=== PATIENT | female | born 1970 | race Caucasian/White ===

== ENCOUNTER → 2019-03-09 14:31 | Outpatient (BNVA) | payer MEDICAID, SELFPAY | PROVIDERS: Family Provider Nurse Practitioner Family; PCP Nurse Practitioner; Visit Provider Obstetrics & Gynecology | DX: Z12.4 Encounter for screening for malignant neoplasm of cervix (principal); N93.9 Abnormal uterine and vaginal bleeding, unspecified | CPT/HCPCS: 81025; 83001; 84146; 84443; 85025; 88175 ==

== ENCOUNTER → 2019-03-11 13:45 | Outpatient (BNVA) | payer MEDICAID, SELFPAY | PROVIDERS: Family Provider Nurse Practitioner Family; PCP Nurse Practitioner; Referring Provider Obstetrics & Gynecology; Visit Provider Obstetrics & Gynecology | DX: N93.9 Abnormal uterine and vaginal bleeding, unspecified (principal); D25.9 Leiomyoma of uterus, unspecified | CPT/HCPCS: 76830 ==

== ENCOUNTER 2019-03-20 12:20 | Observation (INO) | payer MEDICAID, SELFPAY ==
[2019-03-20] VITALS (7 sets, daily range): BP systolic 112–205; BP diastolic 72–113; PULSE 67–83; RESP 15–18; TEMP 36.5–37; O2SAT 95–100; BMI 47.9
--- NOTE | 2019-03-20 12:36 | ED_ITS ---
Entered by Sonia Johns, acting as scribe for Suyapa Alexis HPI - Chest Pain General: Chief Complaint: Chest Pain Stated Complaint: chest pain sent over by [facility] for possible mi Time Seen by Provider: 03/20/19 12:30 Source: patient Mode of arrival: ambulatory Limitations: no limitations History of Present Illness: HPI narrative: 49 yo Female presents to ED with co mplaint of chest pain. Pt states that this pain started yesterday. Pt describes the pain as a squeezing. Pt states that she has constant pain that gets better and then when she exerts herself, her pain gets worse. Pt states that she has been having weakness. Pt states that she was told about 20 years ago that she had a faulty valve. Pt states that she had nausea, shortness of breath, and diaphoresis. MD complaint: chest pain Onset (ago): day(s) Timing of current episode: constant and still present Prior episodes: No Onset: during exertion Pain location: substernal Quality: tightness Relieving factors: nothing Exacerbating factors: exertion Associated symptoms: Reports diaphoresis, dyspnea, leg edema and nausea; Deny palpitations or syncope Review of Systems General: Reports: other (negative unless marked) Const: Reports: diaphoresis Eyes: Denies: change in vision or blurry vision ENMT: Denies: throat pain, painful swallowing, hoarseness, ear pain, ear discharge, Change in hearing or nasal discharge Card: Reports: chest pain, swelling of feet/ankles and shortness of breath on exertion; Denies: palpitations, irregular heart rhythm, syncope, pre-syncope or shortness of breath when lying down Resp: Reports: shortness of breath GI: Reports: nausea : Denies: flank pain, painful urination, urinary frequency, urinary urgency, decreased urine ouput, urinary incontinence or blood in urine Musc: Denies: neck pain, back pain, extremity pain, extremity swelling, joint pain, joint swelling, joint warmth or joint stiffness Skin/Breast: Denies: rash, skin tenderness or yellow skin Neuro: Denies: headache, numbness in extremities, weakness in extremities, changes in sensation, lack of coordination, difficulty walking, dizziness, vertigo or confusion Endo: Denies: excessive thirst, tired all the time, cold intolerance, excessive sweating, flushing or hot flashes Krish/Lymph: Denies: easy bruising, easy bleeding, petechiae or enlarged lymph nodes All/Imm: Denies: hives, throat swelling, tongue swelling, facial swelling or acute wheezing PFSH ED PFSH: Statuses (acute, chronic, etc) shown below reflect problem list status as previously entered and may not be historically accurate Family History Grandfather Diabetes paternal Stroke maternal and paternal Hypertension paternal Mother Diabetes from pancreatitis Grandfather No problems noted. Grandmother Heart disease paternal Hypertension Father Heart disease Hypertension Heart attack Sister Hypertension Social History Smoking and tobacco status: never smoked Alcohol intake: never Physical Exam Const: COMMON NORMALS: no apparent distress, oriented x3, no limitations, healthy appearing and well nourished EXAM LIMITATIONS: no altered mental status GENERAL APPEARANCE: cooperative, well kempt and well developed ORIENTATION/CONSCIOUSNESS: Yes awake HENMT: COMMON NORMALS: normocephalic, head/scalp atraumatic, hearing grossly normal bilaterally, external ears normal, EAC's normal, external nose normal and moist oral mucous membranes HEAD & SCALP: normal to inspection, normocephalic and atraumatic FACE & SINUS: normal facial exam and face symmetric NOSE: external nose normal and nares normal EXTERNAL EAR: Yes external ears normal EXTERNAL AUDITORY CANAL: EAC's normal MOUTH: oral and palatal mucosa normal and tongue normal Eye: COMMON NORMALS: PERRL, EOMs intact bilaterally, conjunctivae normal and no scleral icterus GENERAL EYE: normal appearance of both eyes and normal light reflex CONJUNCTIVA: Yes conjunctivae normal SCLERA: sclerae normal CORNEA: Yes corneas normal PUPIL: Yes PERRL DIRECT OPHTHALMOSCOPY: Yes normal light reflex Neck/C-Spine: COMMON NORMALS: full ROM, no lymphadenopathy, supple, no meningeal signs and no JVD GENERAL: Yes normal visual inspection and Yes trachea midline CERVICAL SPINE: Yes cervical ROM normal Chest: COMMONS NORMALS: inspection of chest normal and palpation of chest normal Resp: COMMON NORMALS: normal respiratory effort, no retractions, no use of accessory muscles and clear to auscultation bilaterally EFFORT & INSPECTION: Yes able to speak in complete sentences AUSCULTATION: clear to auscultation bilaterally Cardio: COMMON NORMALS: no JVD, regular rate, regular rhythm, S1 normal heart sound, S2 normal heart sound, no gallops, no clicks, no murmurs and no rub JUGULAR VENOUS DISTENTION: no JVD RATE: regular rate RHYTHM: regular rhythm HEART SOUNDS: S1 normal and S2 normal GI: COMMON NORMALS: soft to palpation, non-tender, no hepatosplenomegaly and no masses INSPECTION: Yes normal to inspection PALPATION: Yes soft and Yes no hepatosplenomegaly : COMMON NORMALS: Yes no CVA tenderness BLADDER/KIDNEY EXAM: Yes no CVA tenderness Back/Pelvis: COMMON NORMALS: no CVA tenderness, thoracic and lumbar spine normal to inspection, no thoracic nor lumbar tenderness and thoraco-lumbar ROM normal Extremity: COMMON NORMALS: normal to inspection, full ROM, normal capillary refill, no joint enlargement, no clubbing, cyanosis or edema and no calf tenderness Neuro: COMMON NORMALS: oriented x3, CN's II-XII intact bilaterally, moves all extremities, no focal motor deficits and no sensory deficits noted MENINGEAL SIGNS: Yes no meningeal signs Psych: COMMON NORMALS: mental status grossly normal, thought process normal, cooperative, affect normal, speech normal and activity/motor behavior normal APPEARANCE: Yes well kempt SPEECH: Yes normal speech THOUGHT PROCESS: normal thought process Skin: COMMON NORMALS: no rashes or lesions noted, skin turgor normal, no jaundice, no petechiae and no mottling GENERAL SKIN EXAM: no rashes or lesions noted and turgor normal Course Vital Signs: Vital signs: Vital Signs Temperature 97.7 F 03/20/19 12:25 Pulse Rate 71 03/20/19 15:06 Respiratory Rate 17 03/20/19 15:06 Blood Pressure 152/92 03/20/19 15:06 Pulse Oximetry 96 03/20/19 15:06 MDM - Chest Pain 2 MDM Narrative: Medical decision making narrative: Viviana is a very nice 49-year-old female who comes in with a story very concerning for progressive angina. Her first troponin is negative and her EKG is normal. She got pain relief with nitroglycerin. Secondary to her heart score being a 5 I believe would be in her best interest to have a rule out in the hospital and she is willing to stay to get a stress test. The case was reviewed with Dr. Carvalho and he is in agreement. Lab Data: Labs: Lab Results 03/20/19 03/20/19 03/20/19 Range/Units 12:45 12:45 12:45 WBC 10.9 H (4.0-10.0) 10^3/ uL RBC 4.93 (4.1-5.3) 10^6/u L Hgb 13.3 (11.5-15.3) g/dL Hct 41.7 (37.0-47.0) % MCV 84.6 (81-99) fL MCH 27.0 L (28.0-34.0) pg MCHC 31.9 (30.0-36.0) g/dL RDW 13.8 (12.1-15.1) % Plt Count 363 (130-400) 10^3/c mm MPV 10.8 H (7.4-10.4) fL Neut % (Auto) 63.6 % Lymph % (Auto) 29.0 % Pepin % (Auto) 4.9 % Eos % (Auto) 2.0 % Baso % (Auto) 0.3 % Neut # (Auto) 6.9 (1.8-7.7) 10^3/u L Lymph # (Auto) 3.2 (0.8-4.8) 10^3/u L Pepin # (Auto) 0.5 (0.2-0.9) 10^3/u L Eos # (Auto) 0.2 (0.0-0.8) 10^3/u L Baso # (Auto) 0.0 (0.0-0.1) 10^3/u L Nucleated RBC % (a uto) 0 % Nucleated RBCs # 0.0 /100WBC PT 13.10 (10.5-13.3) SECO NDS INR 0.96 (0.8-1.2) D-Dimer (0-0.59) ug/mIFE U Sodium 139 (136-145) mmol/L Potassium 4.0 (3.5-5.1) mmol/L Chloride 101 (98-107) mmol/L Carbon Dioxide 27 (22-29) mmol/L Anion Gap 15.0 (5-19) BUN 13 (6-20) mg/dL Creatinine 0.8 (0.5-0.9) mg/dL GFR Calculation 75.9 L (90-130) mL/min Glucose 123 H (65-115) mg/dL Estimat Average Gl ucose Hemoglobin A1c (4.0-6.0) % Calcium 9.4 (8.5-10.5) mg/dL Total Bilirubin 0.4 (0.15-1.2) mg/dL AST 17 (0-32) U/L ALT 19 (0-33) U/L Alkaline Phosphata se 89 (35-105) IU/L Troponin T Baselin e (0-10) ng/mL NT-Pro-B Natriuret Pep (0-125) pg/mL Total Protein 8.0 (6.6-8.7) g/dL Albumin 4.2 (3.5-5.2) g/dL Globulin 3.8 (1.3-4.6) g/dL Lipase 18 (13-60) U/L 03/20/19 03/20/19 03/20/19 Range/Units 12:45 12:45 12:45 WBC (4.0-10.0) 10^3/ uL RBC (4.1-5.3) 10^6/u L Hgb (11.5-15.3) g/dL Hct (37.0-47.0) % MCV (81-99) fL MCH (28.0-34.0) pg MCHC (30.0-36.0) g/dL RDW (12.1-15.1) % Plt Count (130-400) 10^3/c mm MPV (7.4-10.4) fL Neut % (Auto) % Lymph % (Auto) % Pepin % (Auto) % Eos % (Auto) % Baso % (Auto) % Neut # (Auto) (1.8-7.7) 10^3/u L Lymph # (Auto) (0.8-4.8) 10^3/u L Pepin # (Auto) (0.2-0.9) 10^3/u L Eos # (Auto) (0.0-0.8) 10^3/u L Baso # (Auto) (0.0-0.1) 10^3/u L Nucleated RBC % (a uto) % Nucleated RBCs # /100WBC PT (10.5-13.3) SECO NDS INR (0.8-1.2) D-Dimer (0-0.59) ug/mIFE U Sodium (136-145) mmol/L Potassium (3.5-5.1) mmol/L Chloride (98-107) mmol/L Carbon Dioxide (22-29) mmol/L Anion Gap (5-19) BUN (6-20) mg/dL Creatinine (0.5-0.9) mg/dL GFR Calculation (90-130) mL/min Glucose (65-115) mg/dL Estimat Average Gl ucose 166 Hemoglobin A1c 7.4 H (4.0-6.0) % Calcium (8.5-10.5) mg/dL Total Bilirubin (0.15-1.2) mg/dL AST (0-32) U/L ALT (0-33) U/L Alkaline Phosphata se (35-105) IU/L Troponin T Baselin e 8 (0-10) ng/mL NT-Pro-B Natriuret Pep 277 H (0-125) pg/mL Total Protein (6.6-8.7) g/dL Albumin (3.5-5.2) g/dL Globulin (1.3-4.6) g/dL Lipase (13-60) U/L 03/20/19 Range/Units 12:45 WBC (4.0-10.0) 10^3/ uL RBC (4.1-5.3) 10^6/u L Hgb (11.5-15.3) g/dL Hct (37.0-47.0) % MCV (81-99) fL MCH (28.0-34.0) pg MCHC (30.0-36.0) g/dL RDW (12.1-15.1) % Plt Count (130-400) 10^3/c mm MPV (7.4-10.4) fL Neut % (Auto) % Lymph % (Auto) % Pepin % (Auto) % Eos % (Auto) % Baso % (Auto) % Neut # (Auto) (1.8-7.7) 10^3/u L Lymph # (Auto) (0.8-4.8) 10^3/u L Pepin # (Auto) (0.2-0.9) 10^3/u L Eos # (Auto) (0.0-0.8) 10^3/u L Baso # (Auto) (0.0-0.1) 10^3/u L Nucleated RBC % (a uto) % Nucleated RBCs # /100WBC PT (10.5-13.3) SECO NDS INR (0.8-1.2) D-Dimer 0.69 H (0-0.59) ug/mIFE U Sodium (136-145) mmol/L Potassium (3.5-5.1) mmol/L Chloride (98-107) mmol/L Carbon Dioxide (22-29) mmol/L Anion Gap (5-19) BUN (6-20) mg/dL Creatinine (0.5-0.9) mg/dL GFR Calculation (90-130) mL/min Glucose (65-115) mg/dL Estimat Average Gl ucose Hemoglobin A1c (4.0-6.0) % Calcium (8.5-10.5) mg/dL Total Bilirubin (0.15-1.2) mg/dL AST (0-32) U/L ALT (0-33) U/L Alkaline Phosphata se (35-105) IU/L Troponin T Baselin e (0-10) ng/mL NT-Pro-B Natriuret Pep (0-125) pg/mL Total Protein (6.6-8.7) g/dL Albumin (3.5-5.2) g/dL Globulin (1.3-4.6) g/dL Lipase (13-60) U/L Imaging Data^: CXR: Radiologist's impression: [address] [address] XRay Report Signed Patient: Viviana Ramey #: [id number] : 1970Acct#:[id number] Age/Sex: 49 / FADM Date: 03/20/19 Loc: ERRoom/Bed: Attending Dr: Ordering Provider/Ordering MD: Suyapa Alexis DO Date of Service: 03/20/19 Procedure(s): XR chest 1V portable [id number] Accession Number(s): [id number] Report Number: [id number] WS: [id number] ONE VIEW CHEST HISTORY: 49 years old Female with CHEST PAIN AP upright chest comparison 06/29/2015 FINDINGS: No pneumothorax, pleural effusion, consolidation/atelectasis. Cardiomediastinal silhouette and pulmonary vascular markings unremarkable. No subdiaphragmatic free air. Slight right hemidiaphragm elevation unchanged. No acute osseous abnormality. XR/XR chest 1V portable [id number] IMPRESSION: No acute cardiopulmonary findings, and no significant change from 06/29/2015 Dictated By:Conrad Mccoy MD Signed By:Conrad Mccoy MDSigned Date/Time:03/20/19 1256 DD/ 1255 CTA Chest: Radiologist's impression: [place] [address] CT Scan Report Signed Patient: Viviana Ramey #: [id number] : 1970Acct#:[id number] Age/Sex: 49 / FADM Date: 03/20/19 Loc: [facility]/Bed: 250-[address]: Chele Carvalho MD Ordering Provider/Ordering MD: Chele Carvalho MD Date of Service: 03/20/19 Procedure(s): CT angio chest PE protcl [id number] Accession Number(s): [id number] Report Number: [id number] PROCEDURE INFORMATION: Exam: CT Angiography Chest With Contrast Exam date and time: 03/20/2019 2:29 PM Age: 49 years old Clinical indication: Chest pain; Type not specified; Additional info: R/O pe SOB and mid chest pain TECHNIQUE: Imaging protocol: Computed tomographic angiography of the chest with intravenous contrast. 3D rendering: MIP and/or 3D reconstructed images were created by the technologist. Total DLP: 549.97 mGy-cm Radiation optimization: All CT scans at this facility use at least one of these dose optimization techniques: automated exposure control; mA and/or kV adjustment per patient size (includes targeted exams where dose is matched to clinical indication); or iterative reconstruction. Contrast material: OMNI 350; Contrast volume: 95 ml; Contrast route: RT AC; COMPARISON: CR XR chest 1V portable [id number] 03/20/2019 12:40 PM FINDINGS: Pulmonary arteries: Normal. No pulmonary emboli. Aorta: Unremarkable. No aortic aneurysm. No aortic dissection. Lungs: Unremarkable. No consolidation. No masses. Pleural space: Unremarkable. No pneumothorax. No pleural effusion. Heart: Unremarkable. No cardiomegaly. No pericardial effusion. Gallbladder and bile ducts: Surgical clips in the gallbladder fossa consistent with cholecystectomy. Spleen: Calcified splenic granulomas. Lymph nodes: Calcified right hilar nodes and/or mediastinal nodes and/or lung granulomas consistent with old granulomatous disease. Borderline to mild mediastinal adenopathy which may be reactive. Bones/joints: Unremarkable. No acute fracture. Soft tissues: Unremarkable. CT/CT angio chest PE protcl [id number] IMPRESSION: 1. Borderline to mild mediastinal adenopathy which may be reactive. 2. No pulmonary embolus or aortic dissection. Radiation Dose CTDIVOL = (mGy): DLP = 549.97 (mGy-cm) Dictated By:Ramirez Murcia MD Signed By:Ramirez Murcia MDSigned Date/Time:03/20/19 150 DD/ 1508 EKG Data^: EKG 1: Attestation: I personally reviewed and interpreted this EKG as follows: EKG interpretation date: 03/20/19 EKG interpretation time: 12:31 Interpretation: Normal sinus rhythm at 73 beats a minute, normal intervals, normal QRS, normal axis, no acute ST or T wave changes. Discharge Plan Discharge Patient Disposition: Admitted As Inpatient Admit Provider: Chele Carvalho Discharge Date/Time: 03/20/19 15:23 Coding Level of Care Code ED Mineral Surveyor for Chg Fwd Exam Problem Focused The documentation recorded by the Andreas claros Carmen, accurately reflects the service I personally performed and the decisions made by Reuben tristan Eli N Mar 20, 2019 12:20
--- NOTE | 2019-03-20 12:36 | XR_ITS ---
WS: [id number] ONE VIEW CHEST HISTORY: 49 years old Female with CHEST PAIN AP upright chest comparison 06/29/2015 FINDINGS: No pneumothorax, pleural effusion, consolidation/atelectasis. Cardiomediastinal silhouette and pulmon lali vascular markings unremarkable. No subdiaphragmatic free air. Slight right hemidiaphragm elevatio n unchanged. No acute osseous abnormality. XR/XR chest 1V portable [id number] IMPRESSION: No acute cardiopulmonary findings, and no significant change from 06/29/2015
--- NOTE | 2019-03-20 12:37 | ECG_ITS ---
Measurements Intervals [place] Rate: 73 P: 13 [place]: 184 QRS: 56 QRSD: 78 T: 59 QT: 377 QTc: 416 SINUS RHYTHM NONSPECIFIC T-WAVE ABNORMALITY Compared to ECG 06/29/2015 17:11:05 T-wave abnormality now present Electronically Signed On 03-21-2019 0:19:12 COFFEE HOST by Spenser Maradiaga M.D. [email or web address]
[2019-03-20] MEDS: nitroglycerin 0.4 mg sublingual Tablet SUBLINGUAL ×2 (12:40→12:50)
[2019-03-20] MEDS: aspirin 81 mg Chew Tablet 324 MG PO (12:55)
[2019-03-20 12:56] LABS: Basophils % 0.3 %; Eosinophils # 0.2 10^3/uL (0.0-0.8); Hematocrit 41.7 % (37.0-47.0); Hemoglobin 13.3 g/dL (11.5-15.3); Lymphocytes # 3.2 10^3/uL (0.8-4.8); Mean Corpuscular HGB Conc 31.9 g/dL (30.0-36.0); Mean Corpuscular Volume 84.6 fL (81-99); Mean Platelet Volume 10.8 fL (7.4-10.4); Monocytes # 0.5 10^3/uL (0.2-0.9); Monocytes % 4.9 %; Neutrophils # 6.9 10^3/uL (1.8-7.7); Neutrophils % 63.6 %; Nucleated Red Blood Cells % 0 %; Platelet Count 363 10^3/cmm (130-400); Red Blood Count 4.93 10^6/uL (4.1-5.3); Red Cell Distribution Width 13.8 % (12.1-15.1); White Blood Count 10.9 10^3/uL (4.0-10.0)
[2019-03-20 13:04] LABS: INR 0.96 (0.8-1.2)
[2019-03-20 13:13] LABS: Alanine Aminotransferase 19 U/L (0-33); Albumin Level 4.2 g/dL (3.5-5.2); Alkaline Phosphatase 89 IU/L (35-105); Aspartate Amino Transferase 17 U/L (0-32); Blood Urea Nitrogen 13 mg/dL (6-20); Calcium 9.4 mg/dL (8.5-10.5); Carbon Dioxide 27 mmol/L (22-29); Chloride 101 mmol/L (98-107); Globulin 3.8 g/dL (1.3-4.6); Glomerular Filtration Rate 75.9 mL/min (90-130); Glucose 123 mg/dL (65-115); Lipase 18 U/L (13-60); Sodium 139 mmol/L (136-145); Total Bilirubin 0.4 mg/dL (0.15-1.2)
[2019-03-20 13:15] LABS: Troponin(5th) Baseline 8 ng/mL (0-10)
[2019-03-20] MEDS: sodium chloride 0.9% 1,000 ML 999 ML IV (13:23)
--- NOTE | 2019-03-20 14:15 | CTR_ITS ---
PROCEDURE INFORMATION: Exam: CT Angiography Chest With Contrast Exam date and time: 03/20/2019 2:29 PM Age: 49 years old Clinical indication: Chest pain; Type not specified; Additional info: R/O pe SOB and mid chest pain TECHNIQUE: Imaging protocol: Computed tomographic angiography of the chest with intravenous contrast. 3D rendering: MIP and/or 3D reconstructed images were created by the technologist. Total DLP: 549.97 mGy-cm Radiation optimization: All CT scans at this facility use at least one of these dose optimization techniques: automated exposure control; mA and/or kV adjustment per patient size (includes targeted exams where dose is matched to clinical indication); or iterative reconstruction. Contrast material: OMNI 350; Contrast volume: 95 ml; Contrast route: RT AC; COMPARISON: CR XR chest 1V portable [id number] 03/20/2019 12:40 PM FINDINGS: Pulmonary arteries: Normal. No pulmonary emboli. Aorta: Unremarkable. No aortic aneurysm. No aortic dissection. Lungs: Unremarkable. No consolidation. No masses. Pleural space: Unremarkable. No pneumothorax. No pleural effusion. Heart: Unremarkable. No cardiomegaly. No pericardial effusion. Gallbladder and bile ducts: Surgical clips in the gallbladder fossa consistent with cholecystectomy. Spleen: Calcified splenic granulomas. Lymph nodes: Calcified right hilar nodes and/or mediastinal nodes and/or lung granulomas consistent with old granulomatous disease. Borderline to mild mediastinal adenopathy which may be reactive. Bones/joints: Unremarkable. No acute fracture. Soft tissues: Unremarkable. CT/CT angio chest PE protcl [id number] IMPRESSION: 1. Borderline to mild mediastinal adenopathy which may be reactive. 2. No pulmonary embolus or aortic dissection. Radiation Dose CTDIVOL = (mGy): DLP = 549.97 (mGy-cm)
[2019-03-20] MEDS: FUROsemide 10 mg/mL SDV 2mL 20 MG IVP (14:21)
--- NOTE | 2019-03-20 14:37 | ECG_ITS ---
Measurements Intervals [place] Rate: 70 P: 36 [place]: 186 QRS: 54 QRSD: 80 T: 91 QT: 369 QTc: 400 SINUS RHYTHM NONSPECIFIC T-WAVE ABNORMALITY Compared to ECG 06/29/2015 17:11:05 T-wave abnormality now present Electronically Signed On 03-21-2019 0:22:00 SCREEN PRINTER by Spenser Maradiaga M.D. [id number]
[2019-03-20] MEDS: iohexol 350 mg/mL 100 mL Btl IV (14:41)
[2019-03-20 14:42] LABS: D Dimer 0.69 ug/mIFEU (0-0.59)
[2019-03-20 15:06] LABS: NT Pro B Type Natriuretic Pept 277 pg/mL (0-125)
[2019-03-20 15:13] LABS: Estmated Average Glucose 166; Hemoglobin A1C 7.4 % (4.0-6.0)
[2019-03-20 15:32] LABS: Troponin 5 2HR 6.04 ng/mL (0-10)
[2019-03-20 15:35] LABS: Troponin 5 2HR Delta -1.96 ABS# (0-10)
[2019-03-20] MEDS: enoxaparin 40 mg/0.4 mL Syringe SUBCUT (15:55)
[2019-03-20 16:46] LABS: Glucose Point of Care 110 mg/dL (70-110)
[2019-03-20 17:32] LABS: Add Urine Microscopic? YES; Bilirubin Urine Neg (NEGATIVE); Blood Urine Neg (Negative); Glucose Urine UA Norm (Normal); Ketones Urine Negative (Negative); Leukocyte Esterase Urine Negative (Negative); Nitrate Urine Negative (Negative); Protein Urine Neg (Negative); Specific Gravity, Urine 1.005 (1.005-1.030); Urine Appearance SL Hazy (CLEAR); Urine Color Straw (Yellow); Urobilinogen Urine Norm (Negative); pH Urine 5 (5-7)
[2019-03-20 17:36] LABS: Bacteria Urine 1+; Mucus Urine TRACE; RBC Urine 0-4 /hpf (0-2); Squamous Epithelial Cell Urine 15-25 (0-5)
[2019-03-20 17:37] LABS: Add Urine Culture? No
--- NOTE | 2019-03-20 19:05 | PM.HP ---
Providers/Chief Complaint Admitting Physician: Chele Carvalho MD Primary Care Provider: Braydon Baldwin APN Chief Complaint: chest pain sent [place] [facility] [place] History of Present Illness Viviana Ramey is a 49 year old female with past medical history of type 2 diabetes mellitus, hypertension, obstructive sleep apnea not compliant with CPAP machine presented to the ER today with complaining of chest heaviness, chest pain since yesterday evening. Patient stated yesterday she was having the symptoms on mild exertion along with presyncopal events when she had blackening in front of her eye but never lost consciousness along with shortness of breath. Chest discomfort was mostly central without any radiation to shoulders or neck but was associated with nausea but no vomiting and diaphoresis. Today morning patient had the symptoms at rest so she presented to the ER. Last night patient was not able to sleep as she was anxious and whenever she would lie down she would feel out of breath. At baseline patient does not have any orthopnea or PND but has been noncompliant to CPAP machine as she states whenever she would use it she would end up with a URI. Patient is a non-smoker but has a strong family history of CAD in her father and paternal side. She denies of having any flulike symptoms any recent travels any changes in her bowel movement any abdominal pain any dysuria. Review of Systems Const: Denies: fever, chills, body aches, change in appetite, malaise, night sweats, diaphoresis, change in sleep pattern, daytime sleepiness or snoring Eyes: Denies: change in vision, blurry vision, photophobia, eye discomfort or eye discharge ENMT: Denies: throat pain, enlarged tonsils, hoarseness, mouth pain, oral sores/lesions, dry mouth, tinnitus, nasal congestion or post nasal drip Card: Reports: chest pain, lightheadedness, pre-syncope, shortness of breath on exertion and shortness of breath when lying down; Denies: palpitations, irregular heart rhythm, edema, swelling of feet/ankles, syncope, leg pain with exertion or bluish discoloration of hands/feet Resp: Reports: shortness of breath; Denies: productive cough, non-productive cough, wheezing, stridor, pain on inspiration, change in phlegm color, coughing up blood or chest congestion GI: Denies: abdominal pain, nausea, vomiting, vomiting blood, coffee grounds in vomit, difficulty swallowing, heartburn/indigestion, diarrhea, constipation, bloating, cramping, change in bowel habits, painful bowel movements, blood in stool or black tarry stool : Denies: flank pain, painful urination, urinary frequency, urinary urgency, urinary hesitancy, nighttime urination or blood in urine Musc: Denies: neck pain, back pain, extremity pain, joint pain, joint swelling, redness, joint stiffness or limited range of motion Neuro: Denies: headache, numbness in extremities, weakness in extremities, changes in sensation, lack of coordination, difficulty walking, frequent falls, dizziness, vertigo, confusion, slurred speech, difficulty communicating thoughts or seizure-like activity Psych: Reports: anxiety; Denies: depression, mood swings, panic attacks, hopelessness or irritability Endo: Denies: excessive urination, excessive thirst, tired all the time, cold intolerance, excessive sweating, flushing or heat intolerance Krish/Lymph: Denies: easy bruising or easy bleeding All/Imm: Denies: tongue swelling, facial swelling or acute wheezing Medications/Allergies Home Medications Medication Instructions Recorded Confirmed Last Taken Type cyclobenzaprine 10 mg PO DAILY PRN 03/20/19 03/20/19 Unknown History Allergies Allergy/AdvReac Type Severity Reaction Status Date / Time erythromycin base Allergy Intermediate hives, Verified 03/20/19 11:19 itching, burning PFSH Acute PFSH: Statuses (acute, chronic, etc) shown below reflect problem list status as previously entered and may not be historically accurate Medical History (Updated 03/20/19 @ 19:08 by Chele Carvalho MD) Hypertension (Acute) Obstructive sleep apnea (Acute) PCOS (polycystic ovarian syndrome) (Acute) Family History Grandfather Diabetes paternal Stroke maternal and paternal Hypertension paternal Mother Diabetes from pancreatitis Grandfather No problems noted. Grandmother Heart disease paternal Hypertension Father Heart disease Hypertension Heart attack Sister Hypertension Social History Smoking and tobacco status: never smoked Alcohol intake: never Vitals/I&O/Wt Last Vital Signs Temp 98.1 F 03/20/19 15:50 Pulse 73 03/20/19 16:21 Resp 18 03/20/19 15:50 BP 148/79 03/20/19 15:50 Pulse Ox 98 03/20/19 16:21 Weight last 48 hrs Weight 115.212 kg Physical Exam Narrative: EXAM NARRATIVE: General: No acute distress, AO x3, morbidly obese HEENT: PERRLA, pupils bilaterally equal and reactive Chest: Normal vesicular breath sounds, occasional bilateral fine crackles, equal good air entry bilaterally CVS: S1-S2 regular, no murmurs, no tachycardia, no gallops, no rubs Abdomen: Soft, nontender, no organomegaly, bowel sounds present Neuro: No focal deficits, no facial deformity, AO x3, power 5/5 in all limbs Data : 03/20/19 12:45 03/20/19 12:45 A&P Assessment and plan (1) Chest pain: Status: Acute Code(s): R07.9 - Chest pain, unspecified (2) Obstructive sleep apnea: Status: Acute Code(s): G47.33 - Obstructive sleep apnea (adult) (pediatric) (3) Hypertension: Status: Acute Code(s): I10 - Essential (primary) hypertension Additional A&P Information Chest discomfort: ACS rule out. Patient's symptoms are typical. Troponins done now have been negative. Patient does have a strong family history of CAD but is not a smoker. Continue to trend troponins as per time for 6 hours. Check proBNP. Given the symptoms PE cannot be ruled out as patient has history of PCOS as well. Will do CTA chest to rule out PE her creatinines are within normal limits. Patient seems mildly fluid congested as she was given around 2 L of bolus in the ER. We will give 20 mg IV Lasix. Give patient 325 mg aspirin stat followed by 81 mg aspirin daily along with atorvastatin 80 mg. Check HbA1c and lipid panel tomorrow morning. Patient would most likely need a Lexiscan on Friday. Unfortunately cannot be done over the weekend. Patient is aware of the same. If patient has chest pain or forward trending of troponins we will involve cardiology for possible cath earlier. Check echocardiogram. Hypertension: Continue with home dose of propranolol. Continue to monitor blood pressure. We will check Accu-Cheks before meals at bedtime with mild insulin sliding scale protocol Full code. Cardiac diet. Lovenox for DVT prophylaxis Attestations Medical Necessity Statement*: Needs admission for less than 2 midnights for chest pain rule out Time Spent in Patient Care: Greater than 35 minutes Coding Level of Care Code Acute Aerobics Instructor for Deyanira Nice Diagnoses Chest pain R07.9 Obstructive sleep apnea G47.33 Hypertension I10
[2019-03-20 19:35] LABS: Troponin 5 6HR 8.17 ng/L (0-10); Troponin 5 6HR Delta 0.17 ng/L (0-12)
[2019-03-20] MEDS: atorvastatin 40 mg Tablet 80 MG PO (21:19)
[2019-03-20 21:29] LABS: Glucose Point of Care 127 mg/dL (70-110)
[2019-03-21] VITALS: BP 144/88; PULSE 74; RESP 18; TEMP 36.9; O2SAT 97
[2019-03-21 04:00] VITALS: BP 138/84; PULSE 72; RESP 18; TEMP 36.9; O2SAT 98
[2019-03-21 04:59] LABS: Basophils % 0.2 %; Eosinophils # 0.2 10^3/uL (0.0-0.8); Eosinophils % 1.9 %; Hematocrit 39.9 % (37.0-47.0); Hemoglobin 12.7 g/dL (11.5-15.3); Lymphocytes # 2.6 10^3/uL (0.8-4.8); Lymphocytes % 28.9 %; Mean Corpuscular HGB Conc 31.8 g/dL (30.0-36.0); Mean Corpuscular Hemoglobin 26.9 pg (28.0-34.0); Mean Corpuscular Volume 84.5 fL (81-99); Mean Platelet Volume 11.2 fL (7.4-10.4); Monocytes # 0.4 10^3/uL (0.2-0.9); Monocytes % 4.3 %; Neutrophils # 5.9 10^3/uL (1.8-7.7); Neutrophils % 64.5 %; Nucleated Red Blood Cells % 0 %; Platelet Count 342 10^3/cmm (130-400); Red Blood Count 4.72 10^6/uL (4.1-5.3); Red Cell Distribution Width 13.8 % (12.1-15.1); White Blood Count 9.1 10^3/uL (4.0-10.0)
[2019-03-21 05:25] LABS: Anion Gap 16.6 (5-19); Blood Urea Nitrogen 11 mg/dL (6-20); Calcium 9.1 mg/dL (8.5-10.5); Carbon Dioxide 26 mmol/L (22-29); Chloride 100 mmol/L (98-107); Glomerular Filtration Rate 88.6 mL/min (90-130); Glucose 165 mg/dL (65-115); Osmolality Calculated 288 mOsm/kg (285-295); Potassium 3.6 mmol/L (3.5-5.1); Sodium 139 mmol/L (136-145)
[2019-03-21 05:26] LABS: Cholesterol 142 mg/dL (0-200); HDL Cholesterol 29 mg/dL (60-100); LDL Cholesterol Calculated 65 mg/dL (50-129); LDL HDL Ratio 2.24 RATIO (0.00-3.22); Triglycerides 238 mg/dL (0-150)
[2019-03-21 07:22] LABS: Glucose Point of Care 253 mg/dL (70-110)
[2019-03-21 07:22] LABS: Glucose Point of Care 131 mg/dL (70-110)
[2019-03-21 07:26] VITALS: BP 148/85; PULSE 66; RESP 18; TEMP 36.8; O2SAT 94
[2019-03-21] MEDS: aspirin 81 mg EC Tablet PO (08:05)
[2019-03-21 11:00] VITALS: BP 139/93; PULSE 77; RESP 16; TEMP 37.2; O2SAT 94
[2019-03-21 11:23] LABS: Glucose Point of Care 192 mg/dL (70-110)
--- NOTE | 2019-03-21 12:16 | PM.PN ---
Subjective Subjective: Interval history: No acute events overnight. On evaluation this morning patient is sitting comfortably in bed. She states she has not had any similar chest discomfort. States shortness of breath has improved a little bit as well and denies having cough, nausea, vomiting, dizziness, palpitations. Vitals/I&O/Wt Last Vital Signs Temp 98.9 F 03/21/19 11:00 Pulse 77 03/21/19 11:00 Resp 16 03/21/19 11:00 BP 139/93 03/21/19 11:00 Pulse Ox 94 03/21/19 11:00 03/20/19 03/21/19 03/21/19 22:59 06:59 14:59 Intake Total 500 / 500 600 / 600 Balance 500 / 500 600 / 600 Weight last 48 hrs Weight 115.212 kg Physical Exam Narrative: EXAM NARRATIVE: General: No acute distress, AO x3, morbidly obese HEENT: PERRLA, pupils bilaterally equal and reactive Chest: Normal vesicular breath sounds, no added sounds, equal good air entry bilaterally CVS: S1-S2 regular, no murmurs, no tachycardia, no gallops, no rubs Abdomen: Soft, nontender, no organomegaly, bowel sounds present Neuro: No focal deficits, no facial deformity, AO x3, power 5/5 in all limbs Data : 03/21/19 04:36 03/21/19 04:36 A&P Assessment and plan (1) Chest pain: Status: Acute Code(s): R07.9 - Chest pain, unspecified (2) Obstructive sleep apnea: Status: Acute Code(s): G47.33 - Obstructive sleep apnea (adult) (pediatric) (3) Hypertension: Status: Acute Code(s): I10 - Essential (primary) hypertension Additional A&P Information Chest discomfort: ACS rule out. Patient's symptoms are typical. Troponins done now have been negative. Patient does have a strong family history of CAD but is not a smoker. Troponins have remained negative with delta. Continue with aspirin and statin. Continue with morphine and nitro as needed. Patient will undergo Lexiscan stress test tomorrow morning so will be n.p.o. after midnight. If Lexiscan is negative patient's symptoms are most likely due to severe sleep apnea. Have discussed in detail with patient regarding need of compliance with CPAP. Patient states her mask at home does not fit her well anymore and usually falls off in the middle of the night. Patient would most likely need a fresh sleep apnea study or mask fitting as an outpatient. Hypertension: Continue with home dose of propranolol. Continue to monitor blood pressure. Type 2 diabetes mellitus: Patient states he does not have a history of type 2 diabetes mellitus and takes metformin for PCOS. HbA1c more than 7. Patient has been on mild insulin sliding scale but has not required any insulin dose till now. Blood sugar 165 on BMP today. We will start patient on metformin while being in hospital but will increase dose to thousand milligrams twice daily. Patient should most likely be discharged on the same dose. Full code. Cardiac diet. Lovenox for DVT prophylaxis Attestations Medical Necessity Statement*: Needs further hospitalization stress test in AM Time Spent in Patient Care: 16 - 35 minutes Coding Level of Care Code Acute Capacitor Pack Press Operator for Deyanira Nice Diagnoses Chest pain R07.9 Obstructive sleep apnea G47.33 Hypertension I10
--- NOTE | 2019-03-21 12:21 | ECG_ITS ---
NAME OF STUDY: LEXISCAN SESTAMIBI STRESS TEST INDICATION: Chest Pain, PROCEDURE: At the baseline, the EKG revealed normal sinus rhythm with a poor R wave progression. Low voltage complexes in the precordial leads. Diffuse nonspecific T wave changes. The baseline blood pressure was 148/90 mm Hg with a heart rate of 77 beats/min. Lexiscan was infused over a period of 20 seconds. A total of 0.4 milligrams of Lexiscan was infused. The stress phase was continued for a total of 5 minutes. Heart rate at the end of the stress phase was 91 with a blood pressure 158/88. The EKG at the peak infusion revealed some nonspecific ST -Tchanges. Sestamibi was injected 20 seconds after the Lexiscan infusion. Blood pressure at the end of the recovery phase was 157/88 with a heart rate of 85 per minute. CONCLUSION: 1. Nonspecific EKG changes with the LexiScan infusion 2. No LexiScan induced chest pain or cardiac arrhythmia 3. Normal blood pressure and heart rate response 4. Sestamibi/sestamibi perfusion scan pending; see separate report. Electronically Signed On 03-22-2019 15:05:12 JAVA XML DEVELOPER by Meir Ramirez M.D. [id number]
--- NOTE | 2019-03-21 14:44 | PC.CHAP ---
Pastoral Care Encounter/Spiritual Assessment Type of Contact [] Declined police and fire dispatcher visit [] Patient/Family/Request visit [] Outpatient visit [] Follow-up visit [] Physician referral [] Code/Alert [x] Routine visit [] Staff referral [] Actively dying [] Patient sleeping [] Family support [] [] Out of room [] Palliative care [] [] Receiving care in room [] Pre-surgical visit [] Trauma [] Long length of stay [] ICU visit [] Other: Relational/Emotional Strength [x] Patient feels connected with others/family/visitors/staff [] Distress [] Loneliness/isolation [] Abandonment Spirituality of Patient [x] Person of Suleam [x] Attends Spiritism of their Sulema [x] Believes in Prayer [] Reads Bible or Synagogue materials [] There are Spiritual issues to be addressed Long Filler C[employer] Roller Machine Interventions [x] Prayer [x] Active listening [x] Non-anxious presence [] Spiritual/emotional support [] Crisis/trauma care [] Spiritual counseling [] Bereavement support [] Provided bereavement packet [] Provided Bible/devotional materials [] Provided toy/stuffed animal, coloring book to patient or family member [] Provided Communion [] Anointing/[place] [] Salvation [x] Completed spiritual assessment [] Other: Impact on Illness or Injury [] Angry [] Fearful [] Anxious [] Often cries [] Exhaustion [] Unable to work [] Unable to attend hoahaoism [] Unable to walk/stand [] Unable to read [] Unable to drive [] Unable to eat/drink [] Unable to sleep [] Unable to be with family [] Patient intubated [] Other: Summary 2 visitorpatient wants to go home feeling better Time spent with patient 10 min
[2019-03-21] MEDS: enoxaparin 40 mg/0.4 mL Syringe SUBCUT (15:06)
[2019-03-21 15:12] VITALS: BP 154/88; PULSE 76; RESP 18; TEMP 36.7; O2SAT 95
--- NOTE | 2019-03-21 15:46 | USCV_ITS ---
Viviana Ramey Age: 49 Gender: F : 1970 Exam Date: 03/21/2019 09:12 Ordering Phys: Chele Carvalho MD Technologist: January Ayala Exam Location: [facility] [place] Indication: ? MVP BP: 148 / 85 HR: 76 Rhythm: Sinus Technical Quality: Technically difficult study MEASUREMENTS (Male / Female) Normal Values 2D ECHO LV Diastolic Diameter PLAX 3.2 cm 4.2 - 5.9 / 3.9 - 5.3 cm LV Systolic Diameter PLAX 1.8 cm LV Chamber Size 3.6 cm IVS Diastolic Thickness 1.9 cm 0.6 - 1.0 / 0.6 - 0.9 cm IVS Systolic Thickness 1.7 cm LVPW Diastolic Thickness 1.3 cm 0.6 - 1.0 / 0.6 - 0.9 cm LVPW Systolic Thickness 1.4 cm RV Chamber Size 3.1 cm LVOT Diameter 2.0 cm LV Ejection Fraction 2D Teich 78.4 % LA Diameter 3.5 cm LA Width 3.2 cm LA Height 3.9 cm RA Width 3.1 cm RA Height 3.6 cm Aorta at Sinotubular Diameter 2.7 cm M-MODE LV Diastolic Diameter MM 3.6 cm 4.2 - 5.9 / 3.9 - 5.3 cm LV Systolic Diameter MM 2.2 cm LV Ejection Fraction MM Teich 71.4 % IVS Diastolic Thickness MM 1.7 cm 0.6 - 1.0 / 0.6 - 0.9 cm IVS Systolic Thickness MM 1.6 cm LVPW Diastolic Thickness MM 1.3 cm 0.6 - 1.0 / 0.6 - 0.9 cm LVPW Systolic Thickness MM 1.7 cm RV Diastolic Diameter MM 1.4 cm Aortic Annulus Diameter 2.9 cm LA Ao Ratio MM 1.2 MV E Point Septal Separation 0.3 cm DOPPLER AV Peak Velocity 131.0 cm/s LVOT Peak Velocity 96.0 cm/s AV Area Cont Eq vti 2.3 cm squared AV Area Cont Eq pk 2.3 cm squared MV Area PHT 4.4 cm squared Mitral E to A Ratio 0.9 MV E' Velocity 8.0 cm/s Mitral E to MV E' Ratio 8.2 Mitral E to LV E' Lateral Ratio 7.5 Mitral E to LV E' Septal Ratio 8.9 TV Peak E Velocity 64.0 cm/s FINDINGS Left Ventricle Normal left ventricular cavity size. Normal left ventricular systolic function. No regional wall motion abnormalities. Left ventricular ejection fraction is estimated at 60 %. Grade I/IV diastolic dysfunction (abnormal relaxation filling pattern), normal to mildly elevated filling pressures. Right Ventricle The right ventricle is normal in size and function. RVSP could not be calculated due to incomplete tricuspid regurgitation velocity profile. Right Atrium The right atrium is normal in size. Left Atrium The left atrium is normal in size. Mitral Valve Structurally normal mitral valve without significant stenosis or prolapse. There is no mitral regurgitation. Aortic Valve Structurally normal aortic valve without significant sclerosis or stenosis. There is no aortic regurgitation. Tricuspid Valve Structurally normal tricuspid valve without significant stenosis or regurgitation. Pulmonic Valve Structurally normal pulmonic valve without significant stenosis. There is no pulmonic regurgitation. Pericardium Normal pericardium without effusion. Aorta Normal ascending aorta dimension. CONCLUSIONS 1-Normal left ventricular cavity size. Normal left ventricular systolic function. No regional wall motion abnormalities. Left ventricular ejection fraction is estimated at 60 %. Grade I/IV diastolic dysfunction (abnormal relaxation filling pattern), normal to mildly elevated filling pressures. 2-There is no pericardial effusion. 3-No significant valve abnormalities. 4-The right ventricle is normal in size and function. RVSP could not be calculated due to incomplete tricuspid regurgitation velocity profile. 5-Cannot compare it with prior echocardiogram due to suboptimal images on the prior exam. Spenser Maradiaga MD (Electronically Signed) Final Date: 21 March 2019 16:13 S
[2019-03-21 17:02] LABS: Glucose Point of Care 118 mg/dL (70-110)
[2019-03-21] MEDS: metformin 500 mg Tablet 1000 MG PO (17:13)
[2019-03-21 19:35] VITALS: BP 145/87; PULSE 80; RESP 20; TEMP 37; O2SAT 98
[2019-03-21] MEDS: atorvastatin 40 mg Tablet PO (20:32)
[2019-03-21 20:53] LABS: Glucose Point of Care 141 mg/dL (70-110)
[2019-03-22] VITALS (7 sets, daily range): BP systolic 138–170; BP diastolic 83–88; PULSE 81–94; RESP 18–20; TEMP 36.7–37.2; O2SAT 95–98
[2019-03-22 05:44] LABS: Glucose Point of Care 138 mg/dL (70-110)
--- NOTE | 2019-03-22 08:15 | PC.NURSE ---
THE PATIENT HAS NOT HAD A HYSTERECTOMY OR TUBAL. URINE HCG WAS ORDERED STAT AT 0611. THE NUCLEAR DOSE CANNOT BE INJECTED WITHOUT A NEGATIVE HCG. THE VEGETABLE TIER NURSE WAS MADE AWARE AT 0611. AT APPROXIMATELY 0745 THE DAY SHIFT NURSE WAS CALLED TO SEE IF THE URINE HAD BEEN COLLECTED AND SHE STATED THAT SHE HAD JUST SENT IT TO THE LAB. THIS NURSE SPOKE WITH MENDOZA IN THE LAB AT 0800 AND SHE STATED THAT SHE DID NOT HAVE URINE IN THE LAB FOR THIS PATIENT. MENDOZA ALSO STATED THAT SHE DID HAVE AN UNLABELED SPECIMEN. THIS NURSE CALLED THE FLOOR AND SPOKE WITH LIU ABOUT GETTING THE URINE HCG COMPLETED SO THAT WE CAN START THE STRESS TEST. LIU STATED THAT SHE WOULD GET ANOTHER SAMPLE MAURICIO.
--- NOTE | 2019-03-22 08:47 | PC.NURSE ---
THIS NURSE SPOKE WITH DANIEL ON 2ND FLOOR. SHE STATED THAT THE URINE SPECIMEN JUST WENT DOWN TO THE LAB WITH AN AID FOR THE HCG TEST.
[2019-03-22 09:25] LABS: HCG Qualitative Urine. Negative (Negative)
[2019-03-22] MEDS: regadenoson 0.4 Mg/5 ml Syringe IVP (11:33)
--- NOTE | 2019-03-22 12:06 | PC.NURSE ---
PATIENT HELD IN CDL UNTIL 2ND NUC MED SCAN
--- NOTE | 2019-03-22 12:22 | NMCV_ITS ---
NM darek perf SPECT r/s* [id number] Viviana Ramey Age: 49 Gender: F : 1970 Exam Date: 03/22/2019 10:43 Ordering Phys: Chele Carvalho MD Technologist: CHEO Macias Exam Location: [facility] Indications: CHEST PAIN STRESS TEST Please see separate stress test report in [facility] for full findings IMAGE PROTOCOL Rest/Stress 1 Lexiscan Day Radiopharmaceutical Dose (mCi) Administration Site Administered by Rest: Tc-99m 10.8 IV CHEO Arroyo Sestamibi Stress:Tc-99m 32.8 IV CHEO Arroyo Sestamibi Rest: 22-Mar-2019 60 Discovery 630 Stress: 22-Mar-2019 30 Discovery 630 0.4mg Lexiscan. Images obtained in supine and prone position. SPECT RESULTS Technical Quality: Excellent Raw Data Analysis: Breast attenuation Image Corrections: No attenuation or motion correction applied Summed Stress Score: 0 Summed Rest Score: 0 Summed Difference Score: 0 PERFUSION FINDINGS Fairly uniform myocardial tracer uptake with no significant perfusion abnormalities. FUNCTIONAL RESULTS (calculated via Gated SPECT) Stress Image LV EF (%): 92 Stress EDV (mL):53 TID: 1 Stress ESV (mL):4 FUNCTIONAL FINDINGS: Segmental wall motion analysis revealing no gross wall motion normalities. IMPRESSIONS #1. Unremarkable myocardial perfusion imaging. #2. LV wall motion analysis revealing no gross wall motion normalities. #3. LV ejection fraction estimated to be 92%. #4. Normal LV volume. No significant coronary ischemia, based on the above findings Dr Meir Ramirez MD FACC (Electronically Signed) Final Date: 22 March 2019 17:01 S
[2019-03-22] MEDS: enoxaparin 40 mg/0.4 mL Syringe SUBCUT (16:15)
[2019-03-22 17:13] LABS: Glucose Point of Care 142 mg/dL (70-110)
--- NOTE | 2019-03-22 17:24 | PM.DCS ---
Discharge Providers Date of Admission: 03/20/19 14:43 Date of Discharge: March 22, 2019 Attending Provider at Admission: Chele Carvalho MD Attending Provider at Discharge: James Yuen MD Primary Care Provider: Braydon Baldwin APN Diagnoses at Discharge Discharge Diagnosis (1) Chest pain: Status: Acute Problem details: Nuclear stress test negative (2) Obstructive sleep apnea: Status: Acute Problem details: Encouraged BiPAP at night (3) Hypertension: Status: Acute Problem details: Blood pressure is variable. Currently on propranolol. May need further adjustment Reason for Visit Reason for Visit: Reason For Visit: chest pain sent over by [facility] [place] possible [place] Hospital Course Discharge Summary: Gerber is a 49-year-old female who presents to the hospital with history of some shortness of breath and chest discomfort. It was somewhat atypical. Troponins were negative. Echocardiogram demonstrated 1/4 diastolic dysfunction, no wall motion abnormalities, preserved EF. CTA was performed which demonstrated no pulmonary embolism, borderline mediastinal adenopathy likely reactive which could be followed as an outpatient. Nuclear stress test was ordered demonstrating no reversible ischemia. With negative nuclear stress test I discussed the limitations of the test with the patient and the decision was made to for discharge home, follow-up with her primary care provider. We discussed diet, exercise. Metformin was increased secondary to elevated A1c. If she has significant recurrent symptoms, she is to return. Physical Exam Narrative: EXAM NARRATIVE: General exam no apparent distress Cardiovascular regular rate and rhythm without murmur Lungs clear Abdomen is soft obese nontender Extremities no cyanosis clubbing or edema Discharge Data Data Completed and Pending: Completed Studies During Hospitalization Category Date Time Status CT angio chest PE protcl [id number] Urge nt Cat Scan 03/20/19 14:15 Completed Sestamibi Stress Test Request Routi ne Exams 03/21/19 12:21 Completed XR chest 1V yelitza ble [id number] Stat Exams 03/20/19 12:36 Completed NM darek perf SPECT r/s* [id number] Routin e Nuc Med 03/22/19 12:22 Completed CV echo complete* [id number] Routine Ultrasound 03/21/19 15:46 Completed Labs from last 24 hours 03/22/19 03/22/19 03/22/19 17:07 08:00 05:40 POC Glucose 142 138 HCG, Qual Negative 03/21/19 20:50 POC Glucose 141 HCG, Qual Vitals: Last Vital Signs Temp 98.3 F 03/22/19 15:23 Pulse 89 03/22/19 15:23 Resp 18 03/22/19 15:23 BP 155/88 03/22/19 15:23 Pulse Ox 98 03/22/19 15:23 Discharge Plan Discharge Patient Disposition: Home, Self-Care Condition: Stable Prescriptions: New metformin 500 mg Tablet 1,000 mg PO BIDWM Qty: 60 RF: 0 Continued furosemide [Lasix] 20 mg tablet 20 mg PO DAILY PRN (Reason: Edema) RF: 0 potassium chloride 10 mEq capsule, extended release 10 meq PO DAILY RF: 0 propranolol 60 mg tablet 60 mg PO DAILY RF: 0 duloxetine 30 mg capsule,delayed release(DR/EC) See Rx Instructions .ROUTE .COMPLEX RF: 0 rizatriptan 10 mg tablet 10 mg PO PRN PRN (Reason: Migraine Headache) RF: 0 buspirone 15 mg tablet 7.5 mg PO TID PRN (Reason: Muscle Spasm) RF: 0 cyclobenzaprine 10 mg tablet 10 mg PO DAILY PRN (Reason: Muscle Spasm) RF: 0 Discontinued metformin 500 mg tablet extended release 24hr 500 mg PO BID RF: 0 ibuprofen 800 mg tablet 800 mg PO Q8H PRN (Reason: Pain) RF: 0 Discharge Orders: Discharge Order (Routine); Ordered 03/22/19 Ordered By: James Yuen Referrals: Braydon Baldwin, FLY FRAME TENDER [Primary Care Provider] - 4-7 days Discharge Diet: Diabetic Discharge Activity: Increase activity as tolerated Activity Restrictions/Additional Instructions: Take all medicine as prescribed. Nursing to give patient information on consistent carb diet. Discharge Attestations Time Spent in Discharge Care*: greater than 30 min Quality Metrics Clinical Quality Measures During this hospital stay, did patient experience: None Coding Level of Care Code Acute Research Program Manager for Chg Fwd Diagnoses Chest pain R07.9 Obstructive sleep apnea G47.33 Hypertension I10
== END 2019-03-22 18:30 | disposition home or self-care (01) ==
LOC: ER 12:51 → MEDSURG 14:45
PROVIDERS: Internal Medicine Cardiovascular Disease; Admitting Provider Student in an Organized Health Care Education/Training Program; Emergency Provider Emergency Medicine; Family Provider Nurse Practitioner Family; PCP Nurse Practitioner Family; Visit Provider Internal Medicine
DX: R07.89 Other chest pain (principal); G47.33 Obstructive sleep apnea (adult) (pediatric); I10 Essential (primary) hypertension; E11.9 Type 2 diabetes mellitus without complications; Z91.19 Patient's noncompliance with other medical treatment and regimen; E28.2 Polycystic ovarian syndrome; Z82.49 Family history of ischemic heart disease and other diseases of the circulatory system; Z83.3 Family history of diabetes mellitus; Z79.84 Long term (current) use of oral hypoglycemic drugs
CPT/HCPCS: 12345; 36415; 36416; 71045; 71275; 78452; 80048; 80053; 80061; 81001; 81025; 82962; 83036; 83690; 83880; 84484; 85025; 85378; 85610; 93005; 93017; 93306; 96361; 96372; 96374; 96375; 99283; 99285; A9270; A9500; G0378; J1650; J1815; J1940; J2785; J7030; Q9967

== ENCOUNTER → 2019-03-31 08:31 | Outpatient (BNVA) | payer MEDICAID, SELFPAY | PROVIDERS: Family Provider Nurse Practitioner Family; PCP Nurse Practitioner Family; Visit Provider Obstetrics & Gynecology | DX: N93.9 Abnormal uterine and vaginal bleeding, unspecified (principal) | CPT/HCPCS: 84146 ==

== ENCOUNTER → 2019-04-08 13:34 | Outpatient (BNVA) | payer MEDICAID, SELFPAY | PROVIDERS: Family Provider Nurse Practitioner Family; PCP Nurse Practitioner Family; Visit Provider Obstetrics & Gynecology | DX: N93.9 Abnormal uterine and vaginal bleeding, unspecified (principal) | CPT/HCPCS: 81025 ==

== ENCOUNTER → 2019-04-09 09:45 | Outpatient (BNVA) | payer MEDICAID, SELFPAY | PROVIDERS: Family Provider Nurse Practitioner Family; PCP Nurse Practitioner Family; Visit Provider Obstetrics & Gynecology | DX: N93.9 Abnormal uterine and vaginal bleeding, unspecified (principal) | CPT/HCPCS: 88305 ==

== ENCOUNTER 2019-06-08 06:14 | Outpatient (CLI) | payer MEDICAID, SELFPAY ==
[2019-06-08] VITALS (22 sets, daily range): BP systolic 103–171; BP diastolic 57–97; PULSE 57–70; RESP 14–18; TEMP 36.3–36.9; O2SAT 92–100; BMI 47.0
[2019-06-08] MEDS: diphenhydrAMINE 50 mg Capsule PO (06:29)
--- NOTE | 2019-06-08 06:54 | PM.HP ---
Providers/Chief Complaint Primary Care Provider: Braydon Baldwin APN Chief Complaint: Chest Pain History of Present Illness Viviana Ramey is a 49 year old female being brought in for elective cardiac catheterization. She saw Dr. Myers last on 12 April. She has hypertension, obesity, type 2 diabetes, polycystic ovary disease and sleep apnea. She has been admitted to the hospital with chest pain. Stress testing was negative. She continues to have chest pain. Her echo was normal. Dr. Kennedy wanted her to have coronary angiography. Review of Systems General: Reports: 10 or more systems reviewed and unremarkable except in HPI and below Medications/Allergies Home Medications Medication Instructions Recorded Confirmed Last Taken Type duloxetine 30 mg capsule,delayed See Rx Instructions .ROUTE .COMPLEX 03/09/19 06/07/19 03/19/19 History release potassium chloride 10 mEq 10 meq PO DAILY 03/09/19 06/07/19 03/19/19 History capsule,extended release rizatriptan 10 mg tablet 10 mg PO PRN PRN 03/09/19 06/07/19 Unknown History furosemide 20 mg tablet 20 mg PO DAILY 03/30/19 06/07/19 Unknown History metformin 500 mg tablet 1,000 mg PO BIDWM tab 03/30/19 06/07/19 Unknown History propranolol 60 mg tablet 60 mg PO BID tab 03/30/19 06/07/19 Unknown History rosuvastatin 20 mg tablet 20 mg PO DAILY 03/30/19 06/07/19 Unknown History ertugliflozin 5 mg tablet 5 mg PO QAM 04/13/19 06/07/19 Unknown History Allergies Allergy/AdvReac Type Severity Reaction Status Date / Time erythromycin base Allergy Intermediate hives, Verified 06/07/19 11:36 itching, burning PFSH Acute PFSH: Medical History (Updated 06/08/19 @ 06:58 by Guillermo Morel MD) Diabetes Hypertension Metabolic syndrome Obesity Obstructive sleep apnea Encouraged BiPAP at night PCOS (polycystic ovarian syndrome) Surgical History S/P appendectomy 12/1989 S/P carpal tunnel release right wrist S/P section 10/2001 S/P cholecystectomy 01/1992 Status post surgical removal of ganglion cyst 07/03/2017- right foot Social History Smoking and tobacco status: never smoked Alcohol intake: never Physical Exam Narrative: EXAM NARRATIVE: GENERAL: In general she looks and feels well HEENT: Exam within normal limits. NECK: Supple without jugular vein distention. The carotid upstroke is normal without bruits. BACK: Exam normal. LUNGS: Clear. HEART: Regular rate and rhythm. ABDOMEN: Benign without organomegaly or tenderness. EXTREMITIES: No edema. NEUROLOGIC: Exam normal. SKIN: Unremarkable. A&P Assessment and plan (1) Diabetes: Status: Acute Qualifiers: Diabetes mellitus type: type 2 Diabetes mellitus intermediate designer insulin use: without penitentiary use (2) Metabolic syndrome: Status: Acute (3) Fatigue: Status: Acute (4) Hypertension: Status: Acute Qualifiers: Hypertension type: essential hypertension Qualified Code(s): I10 - Essential (primary) hypertension (5) Obstructive sleep apnea: Status: Acute (6) Chest pain: Status: Acute (7) Obesity: Status: Acute Additional A&P Information She will undergo coronary angiography as an outpatient. Outpatient in a bed. Further recommendations depending upon the results. Attestations Medical Necessity Statement*: We will not need two night stay. Outpatient in a bed Coding Level of Care Code New Pt Acute Resident Care Provider for Chg Fwd Patient Type New History Expanded Problem Focused Exam Expanded Problem Focused Medical Decision Making Moderate Complexity Diagnoses Diabetes E11.9 Diabetes mellitus type: type 2 Diabetes mellitus penitentiary insulin use: without penitentiary use Metabolic syndrome E88.81 Fatigue R53.83 Hypertension I10 Hypertension type: essential hypertension Obstructive sleep apnea G47.33 Chest pain R07.9 Obesity E66.9
[2019-06-08 07:00] LABS: Basophils % 0.2 %; Eosinophils # 0.2 10^3/uL (0.0-0.8); Eosinophils % 1.5 %; Hematocrit 44.7 % (37.0-47.0); Lymphocytes # 3.2 10^3/uL (0.8-4.8); Lymphocytes % 26.7 %; Mean Corpuscular HGB Conc 31.3 g/dL (30.0-36.0); Mean Corpuscular Hemoglobin 27.8 pg (28.0-34.0); Mean Corpuscular Volume 88.9 fL (81-99); Mean Platelet Volume 11.2 fL (7.4-10.4); Monocytes # 0.4 10^3/uL (0.2-0.9); Monocytes % 3.7 %; Neutrophils % 67.6 %; Nucleated Red Blood Cells % 0 %; Platelet Count 377 10^3/cmm (130-400); Red Blood Count 5.03 10^6/uL (4.1-5.3); Red Cell Distribution Width 13.8 % (12.1-15.1); White Blood Count 11.8 10^3/uL (4.0-10.0)
--- NOTE | 2019-06-08 07:00 | XACV_ITS ---
Ht: 155 cm Wt: 113 kg BSA: 2.28 m2 Gender: Female : 1970 Any Known Allergies: Other Exam Priority: Routine Procedure(s): Procedure Description: Diagnostic procedure Procedure Description: Left Heart Catheterization Procedure Description: Left ventriculography Procedure Description: Coronary Angiography Diagnostic Cath Status: Elective Diagnostic Findings Young woman with super morbid obesity, diabetes, hypertension and dyslipidemia with chest pain. Stress testing negative. Despite that continued symptoms so angiography recommended. Angiography reveals right coronary artery dominance. The coronary arteries are entirely normal. Conclusions Normal coronary arteries with normal left ventricular function. Interventional RX Recommendation: none Diagnostic RX Recommendation: none Anticoagulation: Heparin LV EDP: 65 mmHg Ventriculography Ejection Fraction: 65.0 % Pressures Phase:Rest AO : 94 mmHg / 72 mmHg ( 84 mmHg ) @ 2:22:00 AM 136 mmHg / 76 mmHg ( 103 mmHg ) @ 2:32:00 AM 133 mmHg / 71 mmHg ( 100 mmHg ) @ 2:32:00 AM LV : 115 mmHg / 8 mmHg / @ 2:31:00 AM 123 mmHg / 9 mmHg / @ 2:31:00 AM 135 mmHg / 23 mmHg / @ 2:32:00 AM 122 mmHg / 16 mmHg / @ 2:32:00 AM 129 mmHg / 13 mmHg / @ 2:32:00 AM Clinical Evaluation EBL: 5mL-10mL Procedural Details Procedure Consent Obtained. Current Diagnosis : Stable angina. Pre-Procedure Time Out. Identified patient by full name and date of as verbalized by the patient/guarantor. Does the consent match the physician's order: Yes. Accurate & Complete Informed Consent: Yes. Inpatient/Outpatient History & Physical on Chart: Yes. If H&P is completed, is and addenduem needed: No; If yes, is the addendum complete: N/A. Visualize and Verify Site with Patient/Guarantor: N/A. Relevant Radiology Images available: N/A. Pre-op teaching completed and patient verbalized understanding. The risks, benefits, and alternatives of sedation and/or procedure were discussed by physician. The patient agrees to continue. Procedure started. [facility] Clinical Fraility Score: 3: Managing Well. Recreational Aide Indications: Suspected CAD. Chest Pain Symptom Assessment: Non-anginal Chest Pain. Cardiovascular Instability: No. Correct patient, site and procedure confirmed by cath team. Current diagnosis: Stable angina. PERRLA. Strong, [facility] bilaterally. Lungs clear x 5 lobes. IV Site on Arrival: 20 gauge in the right anticubital. Pre Procedural Pulses: bilateral dorsalis pedis was Doppled. Pre Procedural Pulses: bilateral posterior tibial was Doppled. Pre Procedural Pulses: right radial was 2+. Oxygen started at 2liters/min via nasal canula. right radial was prepped with chloroprep then draped in the usual sterile fashion. Physician notified. Baseline sample Acquired. HR: 71 BPM. Patient's family unavailable. Equipment: 5F - Radial. Physician arrived. Physician scrubbed in. Immediate Pre-Procedure Time Out. Correct Patient: Yes; Correct Procedure: Yes; Correct Site: Yes; Correct Patient Position: N/A; Correct Supplies: Yes; Dried Flammable Prep: Yes; Blood Products Available: N/A;. Lidocaine 1% infiltrated to the right radial. Arterial access obtained. Cardiac Cath Pack. ACIST Manifold Kit Model BT 2000. Heparinized Saline (2 units/mL), 1000 mL bag. Inventory is TR 6 FR Radial Glidesheath .035. A TR 5FR Radial TIG 4.0 110cm was advanced over the wire and used for Left coronary angiography. Multiple views taken of left coronary artery. Catheter redirected to the RCA. Unable to cannulate RCA. Catheter out. A CRD 5F JR4 Diagnostic Catheter was advanced over the wire and used for Right coronary angiography. Multiple views taken of right coronary artery. Catheter out. A CRD 5F 145 Angled Pig Diagnostic Catheter was advanced over the wire and used for Ventriculography. EDP Sample taken: LV 123/9,27; HR: 68 BPM; SpO2: 94%. LV gram performed in EMANUEL @ 10 mL/second for a total of 30 mL. Patient EF: Normal. LV EDP: 65. EDP Sample taken: LV 122/16,32; HR: 67 BPM; SpO2: 96%. Pullback taken: LV 129/13,31; AO 136/76(103); Mean: 0mmHg, Peak to Peak: 0mmHg, SEP: 22sec/min; HR: 73 BPM; SpO2: 95%. Catheter out. Physician scrubbed out. A TR Band was successful obtaining hemostatsis at the Right Radial artery insertion site. TR band placed. Hemostasis obtained. Post Procedure: Pulses reassessed and unchanged. PERRLA. Strong, [facility] bilaterally. No VTE prophylaxis required. Medication's Wasted: Lidocaine 1% = 18 mL. Medication's Wasted: Heparin = 1000 units mL. Medication's Wasted: Nitro = 49.8 mL. Medication's Wasted: Other = 1 mg mg. Medication's Wasted: Other = 50 mcg mg. Total IV fluids: 50 mL. Fluoro: 4:15. Contrast type used: Visipaque 320 mgI/mL, 500 mL bottle. [id number]. Post-op diagnosis: Chest pain. Complications: none. Estimated blood loss: 5mL-10mL. Procedure completed. Patient transferred by wheelchair to [address] [place] [address]. Site: Right Radial artery Sheath Size: 6 Fr Hemostasis Method: TR Band Hemostasis Success: Successful Procedure Medications Start: 7:07 AM Stop: 7:07 AM Medication: Versed Amount: 1 mg Route: I.V. Start: 7:07 AM Stop: 7:07 AM Medication: Fentanyl Amount: 50 mcg Route: I.V. Start: 7:17 AM Stop: 7:17 AM Medication: Versed Amount: 1 mg Route: I.V. Start: 7:17 AM Stop: 7:17 AM Medication: Fentanyl Amount: 50 mcg Route: I.V. Start: 7:10 AM Stop: 7:10 AM Medication: Versed Amount: 1 mg Route: I.V. Start: 7:10 AM Stop: 7:10 AM Medication: Fentanyl Amount: 50 mcg Route: I.V. Start: 7:20 AM Stop: 7:20 AM Medication: Verapamil Amount: 5 mg Route: I.A. Start: 7:20 AM Stop: 7:20 AM Medication: Nitrogylcerin Amount: 200 mcg Route: I.A. Start: 7:22 AM Stop: 7:22 AM Medication: Heparin Amount: 5000 units Route: I.V. I, the attending physician, have reviewed and verified all procedure medications. Yes, all medications given per verbal order History/Risk Factors Hypertension: No Dyslipidemia: No Diabetic Therapy: Oral Peripheral Arterial Disease (PAD): No Myocardial Infarction (NV): No Obesity: Yes Renal Disease: No Prior Interventions PCI: No CABG: No Valve Surgery: No Report Signatures Finalized by:Dr. Guillermo Morel MD on 06/08/2019 7:44:06 AM
[2019-06-08 07:16] LABS: Anion Gap 16.8 (5-19); Blood Urea Nitrogen 10 mg/dL (6-20); Calcium 9.3 mg/dL (8.5-10.5); Carbon Dioxide 27 mmol/L (22-29); Chloride 100 mmol/L (98-107); Glomerular Filtration Rate 66.3 mL/min (90-130); Glucose 105 mg/dL (65-115); Osmolality Calculated 286 mOsm/kg (285-295); Potassium 3.8 mmol/L (3.5-5.1); Sodium 140 mmol/L (136-145)
[2019-06-08 08:20] LABS: Glucose Point of Care 120 mg/dL (70-110)
[2019-06-08] MEDS: sodium chloride 0.9% 1,000 ML 125 ML IV (09:01)
[2019-06-08 11:39] LABS: Glucose Point of Care 149 mg/dL (70-110)
--- NOTE | 2019-06-08 13:00 | PC.NURSE ---
Discharge instructions given per the physician's orders. Patient verbalized understanding and did not have any further questions. Incision CDI, patient verbalized understanding of proper incision site care and activity restrictions. Patient ride has been notified.
== END 2019-06-08 13:15 | disposition home or self-care (01) ==
LOC: CCL 06:16 → MEDSURG 08:10
PROVIDERS: Family Provider Nurse Practitioner Family; PCP Nurse Practitioner Family; Visit Provider Internal Medicine Cardiovascular Disease
DX: R07.9 Chest pain, unspecified (principal); E11.9 Type 2 diabetes mellitus without complications; E88.81 Metabolic syndrome and other insulin resistance; R53.83 Other fatigue; I10 Essential (primary) hypertension; G47.33 Obstructive sleep apnea (adult) (pediatric); E66.01 Morbid (severe) obesity due to excess calories; Z68.42 Body mass index [BMI] 45.0-49.9, adult; E28.2 Polycystic ovarian syndrome; E78.5 Hyperlipidemia, unspecified
CPT/HCPCS: 12345; 36415; 36416; 80048; 82962; 85025; 93452; C1769; C1887; C1894; J1644; J2001; J2250; J3010; J3490; J7030; Q0163; Q9967

== ENCOUNTER → 2019-06-16 10:53 | Outpatient (BNVA) | payer MEDICAID, SELFPAY | PROVIDERS: Family Provider Nurse Practitioner Family; PCP Nurse Practitioner Family; Visit Provider Nurse Practitioner Family | DX: R07.9 Chest pain, unspecified (principal) | CPT/HCPCS: 80048 ==

== ENCOUNTER 2019-06-23 06:04 | Day surgery (SDC) | payer MEDICAID, SELFPAY ==
[2019-06-22 12:13] VITALS: BMI 46.0
[2019-06-23 06:23] VITALS: BP 157/87; PULSE 56; RESP 18; TEMP 36.1; O2SAT 96
[2019-06-23 06:40] LABS: Glucose Point of Care 121 mg/dL (70-110)
[2019-06-23 06:45] LABS: Add Urine Microscopic? YES; Bilirubin Urine Neg (NEGATIVE); Blood Urine Neg (Negative); Glucose Urine UA 4+ (Normal); Ketones Urine Negative (Negative); Leukocyte Esterase Urine Trace (Negative); Nitrate Urine Negative (Negative); Protein Urine Neg (Negative); Specific Gravity, Urine 1.015 (1.005-1.030); Urine Appearance SL Hazy (CLEAR); Urine Color Yellow (Yellow); Urobilinogen Urine Norm (Negative); pH Urine 5 (5-7)
[2019-06-23 06:46] LABS: Basophils % 0.3 %; Eosinophils # 0.2 10^3/uL (0.0-0.8); Hematocrit 47.4 % (37.0-47.0); Hemoglobin 14.3 g/dL (11.5-15.3); Lymphocytes # 3.3 10^3/uL (0.8-4.8); Lymphocytes % 27.6 %; Mean Corpuscular HGB Conc 30.2 g/dL (30.0-36.0); Mean Corpuscular Hemoglobin 26.8 pg (28.0-34.0); Mean Corpuscular Volume 88.9 fL (81-99); Mean Platelet Volume 11.2 fL (7.4-10.4); Monocytes # 0.6 10^3/uL (0.2-0.9); Monocytes % 5.1 %; Neutrophils # 7.6 10^3/uL (1.8-7.7); Neutrophils % 64.7 %; Nucleated Red Blood Cells % 0 %; Platelet Count 413 10^3/cmm (130-400); Red Blood Count 5.33 10^6/uL (4.1-5.3); White Blood Count 11.8 10^3/uL (4.0-10.0)
[2019-06-23 06:47] LABS: Add Urine Culture? No; Bacteria Urine 2+
[2019-06-23 06:48] LABS: OR HCG Qualitative Urine Negative (Negative)
[2019-06-23] MEDS: sodium chloride 0.9% 1,000 ML 30 ML IV (06:51)
--- NOTE | 2019-06-23 06:55 | P.ANESASSM_ITS ---
Pre-Anesthetic Assessment Pre-Anesthetic Assessment: Height/Weight: Height 1.55 m Weight 110.677 kg Temp Pulse Resp BP Pulse Ox 97 F L 56 L 18 157/87 96 06/23/19 06:23 06/23/19 06:23 06/23/19 06:23 06/23/19 06:23 06/23/19 06:23 Preop Diagnosis: Abnormal uterine bleeding Proposed Procedure: Operation Date: 06/23/19 07:00 Proposed Procedures p Hysteroscopy w/ Myosure Paracervical block Dilation and curettage with [id number]/N93.9(Not Applicable) - Elieser Pozo MD s Dilation And Curettage (D&C)(Not Applicable) - Elieser Pozo MD Familial anesthetic complications: denies Was Beta Mil taken within 24 hours: Yes Last intake: Intake Last Liquid Date 06/22/19 Last Solid Date 06/22/19 Social: Social History: No alcohol and No tobacco Exam: Pre-Anes Outpt Exam: alert, oriented x 3, clear to auscultation bilaterally and regular rate & rhythm Airway: Submandibular: WNL Cervical ROM: WNL MP: 2 History/ROS: No significant history except as noted Pulmonary: Pulmonary: Sleep apnea (Bipap) CV/HEM: CV/HEM: HTN Comments: angio completed; all results were normal : : None reported Hepatic: Hepatic: None reported GI: GI: None reported Metabolic: Metabolic: Morbid obesity Musc/skel: Musc/skel: None reported Neuropsych: Neuropsych: None reported Anesthetic Plan: ASA status: 2 Anesthesia: Anesthesia Evaluation and MAC Risk of > 500 ml blood loss (7ml/kg in children): No Meds/Allergies Current Medications: Current Medications Generic Name Dose Route Start Last Admin Trade Name Freq PRN Reason Stop Dose Admin Sodium Chloride 1,000 mls @ 30 ml s/hr 06/23/19 06:15 06/23/19 06:51 Sodium Chloride 0.9% IV 06/24/19 06:14 30 mls/hr .Q24H FERNANDA Administration PFSH Anesthesia PFSH: Medical History Diabetes Hypertension Metabolic syndrome Obesity Obstructive sleep apnea Encouraged BiPAP at night PCOS (polycystic ovarian syndrome) Surgical History S/P appendectomy 12/1989 S/P carpal tunnel release right wrist S/P section 10/2001 S/P cholecystectomy 01/1992 Status post surgical removal of ganglion cyst 07/03/2017- right foot Family History Grandfather Diabetes paternal Stroke maternal and paternal Hypertension paternal Mother Diabetes from pancreatitis Grandfather Heart disease Grandmother Heart disease paternal Hypertension Father Heart disease Hypertension Heart attack, Onset Age: 65 stents Sister Hypertension Social History (Updated 06/21/19 @ 07:59 by Hollie Martinez, RN) Smoking and tobacco status: never smoked Alcohol intake: never Female Reproductive History: Date of last menstrual period: 12/11/18 Data Anesthesia CBC & Chem 7: 06/23/19 06:30 06/23/19 06:30 Other Labs: Laboratory Results - last 48 hr 06/23/19 06/23/19 06/23/19 06:20 06:30 06:30 WBC 11.8 H RBC 5.33 H Hgb 14.3 Hct 47.4 H MCV 88.9 MCH 26.8 L MCHC 30.2 RDW 14.0 Plt Count 413 H MPV 11.2 H Neut % (Auto) 64.7 Lymph % (Auto) 27.6 Mccreary % (Auto) 5.1 Eos % (Auto) 2.0 Baso % (Auto) 0.3 Neut # (Auto) 7.6 Lymph # (Auto) 3.3 Mccreary # (Auto) 0.6 Eos # (Auto) 0.2 Baso # (Auto) 0.0 Nucleated RBC % (auto) 0 Nucleated RBCs # 0.0 Sodium 138 Potassium 4.9 Chloride 102 Carbon Dioxide 24 Anion Gap 16.9 BUN 17 Creatinine 1.0 H GFR Calculation 58.7 L Glucose 122 H POC Glucose Calculated Osmolality 284 L Calcium 9.0 Total Bilirubin 0.3 ALT 14 Alkaline Phosphatase 83 Total Protein 7.5 Albumin 4.3 Globulin 3.2 Urine Color Yellow Urine Appearance Sl hazy Urine pH 5 Ur Specific [place] 1.015 Urine Protein Neg Urine Glucose (UA) 4+ H Urine Ketones Negative Urine Blood Neg Urine Nitrate Negative Urine Bilirubin Neg Urine Urobilinogen Norm Ur Leukocyte Esterase Trace H Urine RBC None Urine WBC 5-10 H Ur Squamous Epith Cells 10-15 H Urine Bacteria 2+ H Urine HCG, Qual 06/23/19 06/23/19 06:38 06:46 WBC RBC Hgb Hct MCV MCH MCHC RDW Plt Count MPV Neut % (Auto) Lymph % (Auto) Mccreary % (Auto) Eos % (Auto) Baso % (Auto) Neut # (Auto) Lymph # (Auto) Mccreary # (Auto) Eos # (Auto) Baso # (Auto) Nucleated RBC % (auto) Nucleated RBCs # Sodium Potassium Chloride Carbon Dioxide Anion Gap BUN Creatinine GFR Calculation Glucose POC Glucose 121 Calculated Osmolality Calcium Total Bilirubin ALT Alkaline Phosphatase Total Protein Albumin Globulin Urine Color Urine Appearance Urine pH Ur Specific [place] Urine Protein Urine Glucose (UA) Urine Ketones Urine Blood Urine Nitrate Urine Bilirubin Urine Urobilinogen Ur Leukocyte Esterase Urine RBC Urine WBC Ur Squamous Epith Cells Urine Bacteria Urine HCG, Qual Negative Cardiac Studies: No Data to Display
[2019-06-23 07:02] LABS: Alanine Aminotransferase 14 U/L (0-33); Albumin Level 4.3 g/dL (3.5-5.2); Alkaline Phosphatase 83 IU/L (35-105); Anion Gap 16.9 (5-19); Blood Urea Nitrogen 17 mg/dL (6-20); Carbon Dioxide 24 mmol/L (22-29); Chloride 102 mmol/L (98-107); Globulin 3.2 g/dL (1.3-4.6); Glomerular Filtration Rate 58.7 mL/min (90-130); Glucose 122 mg/dL (65-115); Osmolality Calculated 284 mOsm/kg (285-295); Potassium 4.9 mmol/L (3.5-5.1); Sodium 138 mmol/L (136-145); Total Bilirubin 0.3 mg/dL (0.15-1.2); Total Protein 7.5 g/dL (6.6-8.7)
--- NOTE | 2019-06-23 07:05 | W.PM.OPSUD ---
Surgery/Procedure H&P Update DATE OF PROCEDURE: June 23, 2019 DATE H&P PERFORMED: 06/21/19 H&P UPDATE INFORMATION: I have reviewed H&P completed within last 30 days and I have examined patient prior to procedure PREOP DIAGNOSIS: Abnormal uterine bleeding PLANNED PROCEDURE: Operation Date: 06/23/19 07:00 Proposed Procedures p Hysteroscopy w/ Myosure Paracervical block Dilation and curettage with [id number]/N93.9(Not Applicable) - Elieser Pozo MD s Dilation And Curettage (D&C)(Not Applicable) - Elieser Pozo MD
[2019-06-23 07:07] LABS: Aspartate Amino Transferase 18 U/L (0-32)
--- NOTE | 2019-06-23 07:50 | PM.OP ---
Operative Report Date of procedure: June 23, 2019 Pre-op Diagnosis: Abnormal uterine bleeding Post-op diagnosis: same Post-op Findings: proliferative endometrium Procedure Done: hysteroscopy with D&C via MyoSure Specimens removed/disposition: endocervical curettings Endometrial curettings Surgeon: Elieser Pozo Anesthesia: MAC Estimated blood loss (mL): 5 IV fluids (mL): 500 Complications: none Condition: stable Disposition: PACU Brief History: 49-year-old female with abnormal uterine bleeding unresponsive to medical management. Procedure: After informed consent, the risks included but were not limited to bleeding, infection, injury to internal organs. The patient was counseled on a possible laparotomy and on the potential need for hysterectomy. The patient expressed understanding of the risks involved, all questions were answered, and the patient consented to the procedure. The patient was taken to the operating room where general anesthesia was administered. She was placed in the dorsal lithotomy position and prepped and draped in sterile fashion. A time out procedure was performed. The patient was examined under anesthesia and found to have a normal uterus with normal adnexa. A sterile weight speculum was placed in the vagina. The uterus was then gently sounded to 8 cm, and the cervix was dilated. The 0 degrees MyoSure hysteroscope was advanced gently to the uterine fundus while visualizing the monitor. Survey of the uterine cavity showed: proliferative endometrium throughout, the fundus shows normal proliferative endometrium; left ostium was visualized, and lateral wall with proliferative endometrium; right ostium visualized, and lateral wall with proliferative endometrium; anterior and posterior luna are with proliferative endometrium; endocervical canal is normal. The MyoSure device was advanced and the direct visualization the myoma stalk, polyp was morcellated without complication. At the end of morcellation the fluid deficit was 195 mL and was estimated at approximately 100 mL were on the floor. There was minimal bleeding noted and the tenaculum removed with goad hemostasis noted. The patient tolerated the procedure well. The patient was taken to the recovery area in stable condition.
[2019-06-23 07:57] VITALS: BP 91/61; PULSE 47; RESP 18; TEMP 36.3; O2SAT 98
[2019-06-23 08:27] VITALS: BP 150/89; PULSE 47; RESP 18; O2SAT 98
== END 2019-06-23 08:30 | disposition home or self-care (01) ==
PROVIDERS: Anesthesiology; PCP Nurse Practitioner Family; Visit Provider Obstetrics & Gynecology
PROC: 0UDB8ZZ Extraction of Endometrium, Via Natural or Artificial Opening Endoscopic (ICD-10-PCS; CPT 58558; principal; 2019-06-23 07:00)
PROC: (CPT 58120; 2019-06-23 07:00)
DX: N93.9 Abnormal uterine and vaginal bleeding, unspecified (principal); E11.9 Type 2 diabetes mellitus without complications; I10 Essential (primary) hypertension; E66.01 Morbid (severe) obesity due to excess calories; Z68.42 Body mass index [BMI] 45.0-49.9, adult; G47.33 Obstructive sleep apnea (adult) (pediatric); Z82.49 Family history of ischemic heart disease and other diseases of the circulatory system; Z83.3 Family history of diabetes mellitus; E28.2 Polycystic ovarian syndrome
CPT/HCPCS: 58558; 12345; 36415; 36416; 80053; 81001; 81025; 82962; 84703; 85025; 86850; 86900; 88305; J0690; J1885; J2001; J2704; J3010; J7030

== ENCOUNTER → 2019-09-01 12:34 | Outpatient (BNVA) | payer MEDICAID, SELFPAY | PROVIDERS: PCP Nurse Practitioner Family; Referring Provider Nurse Practitioner Family; Visit Provider Specialist | DX: G43.711 Chronic migraine without aura, intractable, with status migrainosus (principal) | CPT/HCPCS: 99204 ==

== ENCOUNTER 2019-12-16 12:31 | Outpatient (CLI) | payer MEDICAID, SELFPAY ==
--- NOTE | 2019-12-16 12:36 | XR_ITS ---
WS: [id number] XR knee RT 3V* [id number] REASON FOR EXAM: PAIN R KNEE FINDINGS: Mild narrowing of the medial knee joint space. Marginal osteophytes of the medial tibial plateau and the medial femoral condyle. Small osteophyte on the lateral tibial plateau. Moderate narrowing of the patellofemoral joint space with small osteophytes in the superior and infer ior patella. No soft tissue abnormality. XR/XR knee RT 3V* [id number] IMPRESSION: Moderate degenerative arthropathy in the medial and patellofemoral right knee j oint spaces.
== END 2019-12-16 12:32 | disposition home or self-care (01) ==
LOC: RAD 12:34
PROVIDERS: PCP Nurse Practitioner Family; Visit Provider Nurse Practitioner Family
DX: M25.561 Pain in right knee (principal)
CPT/HCPCS: 73562

== ENCOUNTER → 2020-02-15 16:49 | Outpatient (BNVA) | payer BC, SELFPAY | PROVIDERS: PCP Nurse Practitioner Family; Visit Provider Internal Medicine | DX: K52.9 Noninfective gastroenteritis and colitis, unspecified (principal); Z01.812 Encounter for preprocedural laboratory examination | CPT/HCPCS: 82784; 83516 ==

== ENCOUNTER → 2020-02-28 10:22 | Outpatient (BNVA) | payer BC, SELFPAY | PROVIDERS: PCP Nurse Practitioner Family; Visit Provider Internal Medicine | DX: Z01.812 Encounter for preprocedural laboratory examination (principal); Z20.828 Contact with and (suspected) exposure to other viral communicable diseases | CPT/HCPCS: 87635 ==

== ENCOUNTER 2020-03-03 07:58 | Day surgery (SDC) | payer BC, MEDICAID, SELFPAY ==
[2020-03-01 13:54] VITALS: BMI 47.2
[2020-03-03 08:30] VITALS: BP 155/99; PULSE 91; RESP 18; TEMP 37; O2SAT 99
[2020-03-03] MEDS: sodium chloride 0.9% 1,000 ML 30 ML IV (08:58)
--- NOTE | 2020-03-03 09:07 | ANES.PREANE2 ---
Pre-Anesthetic Assessment Pre-Anesthetic Assessment: Height/Weight: Height 1.55 m Weight 113.398 kg Temp Pulse Resp BP Pulse Ox 98.6 F 91 18 155/99 99 03/03/20 08:30 03/03/20 08:30 03/03/20 08:30 03/03/20 08:30 03/03/20 08:30 Preop Diagnosis: diarrhea Proposed Procedure: Operation Date: 03/03/20 09:30 Proposed Procedures p EGD/Colon 93064 R19.7(Not Applicable) - Nabor Wilson MD s Colonoscopy 55911 R19.7(Not Applicable) - Nabor Wilson MD Familial anesthetic complications: None Was Beta Mil taken within 24 hours: Yes Last intake: Intake Last Liquid Date 03/02/20 Last Liquid Time 22:00 Last Solid Date 03/01/20 Last Solid Time 19:30 Social: Social History: No alcohol and No tobacco Exam: Pre-Anes Outpt Exam: alert, oriented x 3, clear to auscultation bilaterally and regular rate & rhythm Airway: Cervical ROM: WNL MP: 2 Dentition: Chipped (bottom R) Pulmonary: Pulmonary: Sleep apnea (noncompliant w/ CPAP) CV/HEM: CV/HEM: HTN Comments: nromal cath and echo Metabolic: Metabolic: DM, Hyperlipidemia and Morbid obesity Anesthetic Plan: ASA status: 2 Anesthesia: MAC Risk of > 500 ml blood loss (7ml/kg in children): No Meds/Allergies Current Medications: Current Medications Generic Name Dose Route Start Last Admin Trade Name Freq PRN Reason Stop Dose Admin Sodium Chloride 1,000 mls @ 30 ml s/hr 03/03/20 08:30 03/03/20 08:58 Sodium Chloride 0.9% IV 30 mls/hr .Q24H FERNANDA Administration PFSH Anesthesia PFSH: Medical History (Updated 02/15/20 @ 14:21 by Nabor Wilson MD) Diabetes Hyperlipidemia Hypertension Metabolic syndrome Obesity Obstructive sleep apnea Encouraged BiPAP at night PCOS (polycystic ovarian syndrome) Status post hysteroscopy Hysteroscopy with dilation and curettage via myosure performed on 06/23/[address] Pozo Surgical History S/P appendectomy 12/1989 S/P carpal tunnel release right wrist S/P section 10/2001 S/P cholecystectomy 01/1992 Status post surgical removal of ganglion cyst 07/03/2017- right foot Family History Grandfather Diabetes paternal Stroke maternal and paternal Hypertension paternal Mother Diabetes from pancreatitis Grandfather Heart disease Grandmother Heart disease paternal Hypertension Father Heart disease Hypertension Heart attack, Onset Age: 65 stents Sister Hypertension Social History Smoking and tobacco status: never smoked History of recent travel: No Female Reproductive History: Date of last menstrual period: 12/11/18 Data Anesthesia Cardiac Studies: No Data to Display
--- NOTE | 2020-03-03 09:22 | P.HP_ITS ---
Same Day Surgery H&P Indication for Procedure/HPI DATE OF PROCEDURE: March 03, 2020 CHIEF COMPLAINT/INDICATIONFOR SURGICAL PROCEDURE: Bloody diarrhea PREOP DIAGNOSIS: diarrhea PLANNED PROCEDRUE: Operation Date: 03/03/20 09:30 Proposed Procedures p EGD/Colon 37420 R19.7(Not Applicable) - Nabor Wilson MD s Colonoscopy 83520 R19.7(Not Applicable) - Nabor Wilson MD Medications/Allergies* Home Medications Medication Instructions Recorded Confirmed Type potassium chloride 10 mEq 10 meq PO DAILY 03/09/19 03/03/20 History capsule,extended release rizatriptan 10 mg tablet 10 mg PO PRN PRN 03/09/19 03/01/20 History furosemide 20 mg tablet 20 mg PO DAILY 03/30/19 03/03/20 History propranolol 60 mg tablet 60 mg PO BID tab 03/30/19 03/03/20 History rosuvastatin 20 mg tablet 20 mg PO DAILY 03/30/19 03/03/20 History alprazolam 0.5 mg tablet 0.5 mg PO DAILY 09/01/19 03/03/20 History dapagliflozin 5 mg tablet 5 mg PO DAILY 09/01/19 03/03/20 History cyclobenzaprine 10 mg tablet 10 mg PO TID PRN 02/15/20 03/03/20 History oxybutynin chloride 10 mg 10 mg PO DAILY 02/15/20 03/03/20 History tablet,extended release 24 hr pantoprazole 40 mg tablet,delayed 40 mg PO DAILY 02/15/20 03/03/20 History release erenumab-aooe [Aimovig 140 mg SUBCUT .MONTHLY PRN 03/01/20 03/03/20 History Autoinjector] Allergies/Adverse Reactions Allergy/AdvReac Type Severity Reaction Status Date / Time erythromycin base Allergy Intermediate hives, Verified 02/15/20 13:46 itching, burning Current Medications: Generic Name Dose Route Start Last Admin Trade Name Freq PRN Reason Stop Dose Admin Sodium Chloride 1,000 mls @ 30 mls/hr 03/03/20 08:30 03/03/20 08:58 Sodium Chloride 0.9% IV 30 mls/hr .Q24H FERNANDA Administration Pertinent History/Comorbid Conditions* Medical History (Updated 02/15/20 @ 14:21 by Nabor Wilson MD) Diabetes Hyperlipidemia Hypertension Metabolic syndrome Obesity Obstructive sleep apnea Encouraged BiPAP at night PCOS (polycystic ovarian syndrome) Status post hysteroscopy Hysteroscopy with dilation and curettage via myosure performed on 06/23/[address] Pozo Surgical History (Updated 04/16/19 @ 18:51 by Jenni Kennedy MD) S/P appendectomy 12/1989 S/P carpal tunnel release right wrist S/P section 10/2001 S/P cholecystectomy 01/1992 Status post surgical removal of ganglion cyst 07/03/2017- right foot Family History (Updated 04/13/19 @ 13:46 by Jenni Kennedy MD) Diabetes Grandfather paternal Mother from pancreatitis Heart disease Grandfather Grandmother paternal Father Heart attack Father, Onset Age: 65 stents Hypertension Grandfather paternal Grandmother Father Sister Stroke Grandfather maternal and paternal Social History Smoking and tobacco status: never smoked History of recent travel: No Pertinent Exam Findings alert, oriented x 3, clear to auscultation bilaterally, regular rate & rhythm, operative site marked and procedure specific exam findings Recommendations Surgery/Procedure today Coding Level of Care Code 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
[2020-03-03 10:30] VITALS: BP 141/84; PULSE 78; RESP 18; TEMP 36.3; O2SAT 98
--- NOTE | 2020-03-03 10:30 | ANE.PACU2 ---
Inpatient post-anesthesia follow up: Airway intact: Yes Vital signs: Temperature 98.6 F Pulse Rate 91 Respiratory Rate 18 Blood Pressure 155/99 Pulse Oximetry 99 Oxygen Delivery Me thod Room Air Oxygen Flow Rate Fraction of Inspir ed Oxygen Hydration adequate: Yes Nausea and vomiting: Yes Mental status: Baseline
[2020-03-03 10:46] VITALS: BP 136/114; PULSE 81; RESP 18; TEMP 36.4; O2SAT 100
== END 2020-03-03 10:58 | disposition home or self-care (01) ==
PROVIDERS: PCP Nurse Practitioner Family; Visit Provider Internal Medicine
PROC: 0DJ08ZZ Inspection of Upper Intestinal Tract, Via Natural or Artificial Opening Endoscopic (ICD-10-PCS; CPT 43235; principal; 2020-03-03 09:30)
PROC: 0DJD8ZZ Inspection of Lower Intestinal Tract, Via Natural or Artificial Opening Endoscopic (ICD-10-PCS; CPT 45378; 2020-03-03 09:30)
DX: R19.7 Diarrhea, unspecified (principal); K92.1 Melena; E11.9 Type 2 diabetes mellitus without complications; E78.5 Hyperlipidemia, unspecified; I10 Essential (primary) hypertension; E66.01 Morbid (severe) obesity due to excess calories; Z68.42 Body mass index [BMI] 45.0-49.9, adult; G47.33 Obstructive sleep apnea (adult) (pediatric); E28.2 Polycystic ovarian syndrome; Z90.710 Acquired absence of both cervix and uterus; Z91.14 Patient's other noncompliance with medication regimen
CPT/HCPCS: 12345; 43235; 45378; J2704; J7030

== ENCOUNTER → 2020-03-10 08:48 | Outpatient (BNVA) | payer BC, MEDICAID, SELFPAY | PROVIDERS: PCP Nurse Practitioner Family; Visit Provider Orthopaedic Surgery | DX: M25.561 Pain in right knee (principal) | CPT/HCPCS: 73560; 73565 ==

== ENCOUNTER → 2020-04-17 10:42 | Outpatient (BNVA) | payer BC, MEDICAID, SELFPAY | PROVIDERS: PCP Nurse Practitioner Family; Visit Provider Nurse Practitioner Family | DX: R05 Cough (principal); Z11.59 Encounter for screening for other viral diseases; Z20.6 Contact with and (suspected) exposure to human immunodeficiency virus [HIV]; Z11.3 Encounter for screening for infections with a predominantly sexual mode of transmission; J98.8 Other specified respiratory disorders | CPT/HCPCS: 71046; 86592; 86705; 86706; 86709; 86803; 87340; 87491; 87591; 87661; 87806 ==

== ENCOUNTER → 2020-10-03 16:01 | Outpatient (BNVA) | payer BC, MEDICAID, SELFPAY | PROVIDERS: PCP Nurse Practitioner Family; Visit Provider Nurse Practitioner Family | DX: Z20.822 Contact with and (suspected) exposure to COVID-19 (principal); J01.40 Acute pansinusitis, unspecified | CPT/HCPCS: 87635 ==

== ENCOUNTER → 2020-12-28 12:54 | Outpatient (BNVA) | payer BC, MEDICAID, SELFPAY | PROVIDERS: PCP Nurse Practitioner Family; Visit Provider Nurse Practitioner | DX: Z20.822 Contact with and (suspected) exposure to COVID-19 (principal); B34.9 Viral infection, unspecified | CPT/HCPCS: 87071; 87426; 87635; 87880 ==

== ENCOUNTER 2021-02-02 13:48 | Emergency (ER) | payer BC, MEDICAID, SELFPAY ==
[2021-02-02 14:07] VITALS: BP 157/92; PULSE 82; RESP 16; TEMP 37.3; O2SAT 98
--- NOTE | 2021-02-02 14:22 | ED_ITS ---
HPI - COVID General: Chief Complaint: COVID symptoms Stated Complaint: sob, cough, mucus Time Seen by Provider: 02/02/21 14:14 Triage information: Has fever, cough or shortness of breath . No known COVID + exposure last 14 days History of Present Illness: HPI Narrative: 51-year-old female who presents to the emergency room with shortness of breath cough myalgias fever headache. She has had this for the last 2 days. She is also complaining of a sore throat. She is not previously been documented to have Covid and she has not been immunized MD complaint: has COVID symptoms Prior covid testing: no COVID 19 common symptoms: positive fever(s), chills, cough, non-productive cough, dyspnea, fatigue, body aches, headache(s), throat pain, nasal congestion and nausea; negative loss of sense of smell and/or taste or diarrhea COVID 19 other sytmptoms: negative chest pain or requiring oxygen Onset (ago): day(s) (2) Pertinent comorbid conditions: hypertension and obesity Treatment prior to arrival: none COVID Results: SARS-CoV-2 Antigen (Rapid) Negative (Negative) 12/28/20 23:59 12/28/20 SARS-CoV-2 RNA (RT-PCR) Not detected (NOT DETECTED) 12/28/20 13:18 12/28/20 Review of Systems Const: Reports: fever(s), chills, body aches and fatigue ENMT: Reports: throat pain and nasal congestion Card: Denies: chest pain, edema, dyspnea on exertion or orthopnea Resp: Reports: dyspnea and non-productive cough GI: Reports: nausea; Denies: diarrhea : Denies: flank pain, difficulty voiding, dysuria, urinary frequency or urinary urgency Skin/Breast: Denies: rash or pruritus Neuro: Reports: headache(s) PFSH ED PFSH: Medical History Diabetes Hyperlipidemia Hypertension Metabolic syndrome Obesity Obstructive sleep apnea Encouraged BiPAP at night PCOS (polycystic ovarian syndrome) Status post hysteroscopy Hysteroscopy with dilation and curettage via myosure performed on 06/23/[address] Pozo Surgical History S/P appendectomy 12/1989 S/P carpal tunnel release right wrist S/P section 10/2001 S/P cholecystectomy 01/1992 Status post surgical removal of ganglion cyst 07/03/2017- right foot Family History Grandfather Diabetes paternal Stroke maternal and paternal Hypertension paternal Mother Diabetes from pancreatitis Grandfather Heart disease Grandmother Heart disease paternal Hypertension Father Heart disease Hypertension Heart attack, Onset Age: 65 stents Sister Hypertension Social History History of recent travel: No Female Reproductive History: Date of last menstrual period: 12/11/18 Physical Exam Const: COMMON NORMALS: no acute distress GENERAL APPEARANCE: cooperative and comfortable ORIENTATION/CONSCIOUSNESS: Yes awake, Yes oriented to person, Yes oriented to place and Yes oriented to time HENMT: COMMON NORMALS: normocephalic, atraumatic and hearing grossly normal bilaterally HEAD & SCALP: normocephalic and atraumatic Neck/C-Spine: COMMON NORMALS: no JVD Lymph: LYMPHATIC: no lymphadenopathy noted and no lymphedema noted Resp: COMMON NORMALS: normal respiratory effort, No retractions, No use of accessory muscles and clear to auscultation bilaterally AUSCULTATION: clear to auscultation bilaterally Cardio: COMMON NORMALS: no JVD, regular rate, regular rhythm and No murmurs present (Cardio) RATE: regular rate RHYTHM: regular rhythm GI: COMMON NORMALS: Soft to palpation and No hepatosplenomegaly present AUSCULTATION: Yes normoactive bowel sounds PALPATION: Yes Soft to palpation, No Tenderness to palpation present (GI), No Guarding due to palpation present (GI) and Yes No hepatosplenomegaly present Extremity: COMMON NORMALS: normal to inspection, capillary refill normal, no clubbing, cyanosis or edema, no calf tenderness and no pedal edema Neuro: SENSORIUM/ORIENTATION: Yes oriented to person, Yes oriented to place and Yes oriented to time Skin: COMMON NORMALS: no rashes or lesions noted GENERAL SKIN EXAM: no rashes or lesions noted Course Vital Signs: Vital signs: Vital Signs Temperature 99.1 F 02/02/21 14:07 Pulse Rate 82 02/02/21 14:07 Respiratory Rate 16 02/02/21 14:07 Blood Pressure 157/92 02/02/21 14:07 Pulse Oximetry 98 02/02/21 15:05 MDM - COVID MDM Narrative: Medical decision making narrative: Clinically suspect COVID-19. Patient is otherwise completely stable vitals and normal exam is a normal lung sounds are clear. We will discharge her home Covid swab was done advised to maintain self quarantine until results are completed. COVID Results: SARS-CoV-2 Antigen (Rapid) Negative (Negative) 12/28/20 23:59 12/28/20 SARS-CoV-2 RNA (RT-PCR) Not detected (NOT DETECTED) 12/28/20 13:18 12/28/20 Discharge Plan Discharge Patient Disposition: Home Clinical Impression: COVID-19 Condition: Stable Prescriptions: No Action propranolol 60 mg tablet 60 mg PO BID RF: 0 pantoprazole 40 mg tablet,delayed release (DR/EC) 40 mg PO DAILY RF: 0 naproxen 500 mg tablet 500 mg PO BID Qty: 60 RF: 0 amoxicillin-pot clavulanate [Augmentin] 875-125 mg tablet 1 tab PO BID 10 Days Qty: 20 RF: 0 losartan 25 mg tablet 25 mg PO DAILY RF: 0 fluticasone propionate 50 mcg/actuation spray,suspension 2 spray intranasal DAILY 180 Days Qty: 16 RF: 5 ibuprofen 600 mg tablet 600 mg PO TID PRN (Reason: fever or pain) Qty: 60 RF: 0 Discharge Orders: Discharge ED (Routine); Ordered 02/02/21 Ordered By: Felton Parsons Referrals: Vivian Muro FNP-C [Primary Care Provider] - Discharge Diet: Usual diet Discharge Activity: Limit activity as instructed Patient Instructions: Opioid Safety Activity Restrictions/Additional Instructions: Recommend he self quarantine until your COVID-19 results are back. If you are positive will contact you and offer monoclonal antibodies. Coding Level of Care Code ED Anthropological Linguist for Deyanira Fwd Exam Comprehensive
[2021-02-02 15:05] VITALS: O2SAT 98
[2021-02-02 16:16] LABS: Adenovirus Not Detected (NOT DETECT); Chlamydia Pneumoniae Not Detected (NOT DETECT); Coronavirus 229E,HKU1,NL63,OC4 Not Detected (NOT DETECT); Human Metapneumovirus Not Detected (NOT DETECT); Human Rhinovirus/Enterovirus Not Detected (NOT DETECT); Influenza A Not Detected (NOT DETECT); Influenza A H1 Not Detected (NOT DETECT); Influenza A H1-2009 Not Detected (NOT DETECT); Influenza A H3 Not Detected (NOT DETECT); Influenza B Not Detected (NOT DETECT); Mycoplasma Pneumoniae Not Detected (NOT DETECT); Parainfluenza Virus Type 1 Not Detected (NOT DETECT); Parainfluenza Virus Type 2 Not Detected (NOT DETECT); Parainfluenza Virus Type 3 Not Detected (NOT DETECT); Parainfluenza Virus Type 4 Not Detected (NOT DETECT); Respiratory Syncytial Virus A Not Detected (NOT DETECT); Respiratory Syncytial Virus B Not Detected (NOT DETECT); SARS-COV-2 Detected (NOT DETECT)
--- NOTE | 2021-02-05 13:30 | DCPLANNER ---
mailing manager had message to schedule an outpatient monoclonal anti body infusion. mailing manager faxed signed order to centralized scheduling, who will call patient with appointment information.
== END 2021-02-02 15:06 | disposition home or self-care (01) ==
PROVIDERS: Emergency Provider Family Medicine; PCP Nurse Practitioner Family
DX: U07.1 COVID-19 (principal); E11.9 Type 2 diabetes mellitus without complications; E78.5 Hyperlipidemia, unspecified; I10 Essential (primary) hypertension
CPT/HCPCS: 87635; 99282

== ENCOUNTER 2021-02-06 07:54 | Outpatient (CLI) | payer BC, MEDICAID, SELFPAY ==
[2021-02-06 08:01] VITALS: BP 130/85; PULSE 75; RESP 17; TEMP 36.8; O2SAT 99; BMI 45.3
[2021-02-06 09:20] VITALS: BP 128/84; PULSE 70; RESP 17; TEMP 36.8; O2SAT 99
[2021-02-06 10:08] VITALS: BP 131/83; BP 138/83; PULSE 77; RESP 17; TEMP 36.3; O2SAT 98
== END 2021-02-06 07:55 | disposition home or self-care (01) ==
LOC: OPS 07:57
PROVIDERS: PCP Nurse Practitioner Family; Visit Provider Family Medicine
DX: U07.1 COVID-19 (principal)
CPT/HCPCS: 96365

== ENCOUNTER 2021-02-26 12:12 | Outpatient (CLI) | payer BC, MEDICAID, SELFPAY ==
--- NOTE | 2021-02-26 12:17 | XR_ITS ---
WS: [id number] Exam: XR chest 2V* [id number] Date/Time of Exam: 02/26/2021 12:22 PM Reason For Exam: DYSPNEA/POST COVID 19 Comparison 04/17/2020. Findings: The lungs are clear and fully expanded. Costophrenic angles are sharp. No infiltrates. Bronchovascula r relief appears normal. Cardiac silhouette is unremarkable. Bony elements are intact. XR/XR chest 2V* [id number] IMPRESSION: Unremarkable chest radiograph.
== END 2021-02-26 12:13 | disposition home or self-care (01) ==
LOC: RAD 12:15
PROVIDERS: PCP Nurse Practitioner Family; Visit Provider Nurse Practitioner Family
DX: U07.1 COVID-19 (principal); R06.00 Dyspnea, unspecified
CPT/HCPCS: 71046

== ENCOUNTER 2021-03-06 15:24 | Outpatient (CLI) | payer BC, MEDICAID, SELFPAY ==
--- NOTE | 2021-03-06 17:32 | ECG_ITS ---
[facility] Test Date: 2021-03-06 Pat Name: Viviana Ramey Department: Room: Gender: Female Music Journalist: : 1970 Requested By: Vivian Muro Order Number: [id number] Alford MD: Jenni Kennedy M.D. Measurements Intervals [place] Rate: 72 P: 4 HI: 170 QRS: 41 QRSD: 75 T: 112 QT: 377 QTc: 413 Interpretive Statements SINUS RHYTHM LOW QRS VOLTAGE IN PRECORDIAL LEADS [QRS DEFLECTION < 1.0 mV IN CHEST LEADS] NONSPECIFIC T-WAVE ABNORMALITY Compared to ECG 03/20/2019 15:01:46 Low QRS voltage now present T-wave abnormality still present Electronically Signed On 03-06-2021 22:08:46 SECURITY SHIFT SUPERVISOR by Jenni Kennedy M.D. [id number]
== END 2021-03-06 15:25 | disposition home or self-care (01) ==
LOC: RT 15:27
PROVIDERS: PCP Nurse Practitioner Family; Visit Provider Nurse Practitioner Family
DX: R06.09 Other forms of dyspnea (principal); U09.9 Post COVID-19 condition, unspecified
CPT/HCPCS: 93005

== ENCOUNTER → 2021-03-21 15:48 | Outpatient (BNVA) | payer BC, MEDICAID, SELFPAY | PROVIDERS: PCP Nurse Practitioner Family; Visit Provider Nurse Practitioner Family | DX: I10 Essential (primary) hypertension (principal); R60.0 Localized edema; L30.9 Dermatitis, unspecified; F41.9 Anxiety disorder, unspecified; U09.9 Post COVID-19 condition, unspecified; J32.9 Chronic sinusitis, unspecified | CPT/HCPCS: 80053 ==

== ENCOUNTER → 2021-04-18 10:47 | Outpatient (BNVA) | payer BC, MEDICAID, SELFPAY | PROVIDERS: PCP Nurse Practitioner Family; Visit Provider Nurse Practitioner Family | DX: E11.65 Type 2 diabetes mellitus with hyperglycemia (principal); G62.9 Polyneuropathy, unspecified; I10 Essential (primary) hypertension; R53.83 Other fatigue; G47.33 Obstructive sleep apnea (adult) (pediatric); J32.9 Chronic sinusitis, unspecified; E78.5 Hyperlipidemia, unspecified; E66.9 Obesity, unspecified | CPT/HCPCS: 82306; 82607; 82728; 82746; 83036; 83540; 83550; 84443; 84550; 85025; 85651; 86140; 86431 ==

== ENCOUNTER 2021-05-02 06:41 | Outpatient (CLI) | payer BC, MEDICAID, SELFPAY ==
--- NOTE | 2021-05-02 07:00 | USCV_ITS ---
Tanvir Viviana Age: 51 Gender: F : 1970 Exam Date: 05/02/2021 07:13 Ordering Phys: Nara Roger Technologist: KASIA [place] [facility] [place]ication: Dyspnea BP: 142 / 90 HR: 70 Rhythm: Sinus Technical Quality: Technically difficult study MEASUREMENTS (Male / Female) Normal Values 2D ECHO LV Diastolic Diameter PLAX 2.7 cm 4.2 - 5.9 / 3.9 - 5.3 cm LV Systolic Diameter PLAX 1.9 cm IVS Diastolic Thickness 1.6 cm 0.6 - 1.0 / 0.6 - 0.9 cm IVS Systolic Thickness 2.1 cm LVPW Diastolic Thickness 1.5 cm 0.6 - 1.0 / 0.6 - 0.9 cm LVPW Systolic Thickness 2.1 cm LVOT Diameter 2.0 cm LV Ejection Fraction 2D Teich 59.6 % LA Diameter 2.4 cm Aorta at Sinotubular Diameter 2.0 cm M-MODE Aortic Annulus Diameter 3.3 cm LA Ao Ratio MM 0.7 MV E Point Septal Separation 0.4 cm DOPPLER AV Peak Velocity 110.0 cm/s LVOT Peak Velocity 59.0 cm/s AV Area Cont Eq vti 1.7 cm squared AV Area Cont Eq pk 1.7 cm squared MV Area PHT 5.0 cm squared Mitral E to A Ratio 0.8 MV E' Velocity 72.0 cm/s TR Peak Velocity 240.0 cm/s TR Peak Gradient 23.0 mmHg TV Peak E Velocity 63.0 cm/s PV Peak Velocity 68.0 cm/s RV Acceleration Time 0.3 s RV Ejection Time 0.1 s RV AcT/ET 2.7 FINDINGS Left Ventricle Normal left ventricular size. LV systolic function is normal with EF of 55-60%. No regional wall motion abnormalities. Grade 1 diastolic dysfunction Right Ventricle The right ventricle is normal in size and function. Right Atrium The right atrium is normal in size. Left Atrium The left atrium is normal in size. Mitral Valve Structurally normal mitral valve without significant stenosis or prolapse. There is trace mitral regurgitation. Aortic Valve Grossly normal without significant sclerosis or stenosis. There is no aortic regurgitation. Tricuspid Valve Grossly normal without significant stenosis or regurgitation. Insufficient TR jet to calculate RVSP Pulmonic Valve Not well visualized Pericardium Normal pericardium without effusion. Aorta Normal ascending aorta dimension. CONCLUSIONS LV systolic function is normal with EF of 55-60% Grade 1diastolic dysfunction Trace mitral regurgitation Compared to prior echocardiogram from 03/21/2019, no significant changes are seen Carlin Rivera MD (Electronically Signed) Final Date: 11 May 2021 11:32 S
== END 2021-05-02 06:42 | disposition home or self-care (01) ==
LOC: RAD 06:45
PROVIDERS: PCP Nurse Practitioner Family; Visit Provider Nurse Practitioner Family
DX: R06.09 Other forms of dyspnea (principal); U09.9 Post COVID-19 condition, unspecified; I34.0 Nonrheumatic mitral (valve) insufficiency
CPT/HCPCS: 93306

== ENCOUNTER 2021-05-28 12:15 | Outpatient (CLI) | payer BC, MEDICAID, SELFPAY ==
--- NOTE | 2021-05-28 12:26 | XR_ITS ---
WS: [id number] Exam: XR chest 2V* [id number] Date/Time of Exam: 05/28/2021 12:29 PM Reason For Exam: SOB Comparison 02/26/2021. Findings: The lungs are clear and fully expanded. Costophrenic angles are sharp. No infiltrates. Bronchovascula r relief appears normal. Cardiac silhouette is unremarkable. Bony elements are intact. XR/XR chest 2V* [id number] IMPRESSION: Unremarkable chest radiograph.
== END 2021-05-28 12:16 | disposition home or self-care (01) ==
PROVIDERS: PCP Nurse Practitioner Family; Visit Provider Nurse Practitioner Family
DX: R06.02 Shortness of breath (principal); R79.82 Elevated C-reactive protein (CRP); R70.0 Elevated erythrocyte sedimentation rate; M25.50 Pain in unspecified joint; I50.9 Heart failure, unspecified
CPT/HCPCS: 71046; 80053; 85651; 86140; 86160; 86162; 86225; 86235; 86255; 86376

== ENCOUNTER 2021-05-29 07:17 | Outpatient (CLI) | payer BC, MEDICAID, SELFPAY ==
--- NOTE | 2021-05-29 13:30 | PFTS_ITS ---
Date of Study:05/29/21 Date of Dictation: MECHANICS: Forced vital capacity (FVC) is normal. Forced expiratory volume in one second (FEV1) is normal. FEV1/FVC is normal. FLOW VOLUME LOOP: Normal. LUNG VOLUMES: Normal DIFFUSING CAPACITY FOR CARBON MONOXIDE: Normal. INTERPRETATION: The prebronchodilator spirometry is normal. No postbronchodilator spirometry was performed. Lung volumes are normal. Gas exchange (DLCO) is normal. MTDD
== END 2021-05-29 07:18 | disposition home or self-care (01) ==
LOC: RT 07:18
PROVIDERS: PCP Nurse Practitioner Family; Visit Provider Nurse Practitioner Family
DX: R06.09 Other forms of dyspnea (principal); U09.9 Post COVID-19 condition, unspecified
CPT/HCPCS: 94010; 94726; 94729

== ENCOUNTER → 2021-06-27 14:03 | Outpatient (BNVA) | payer BC, MEDICAID, SELFPAY | PROVIDERS: PCP Nurse Practitioner Family; Visit Provider Nurse Practitioner Family | DX: M79.671 Pain in right foot (principal); M79.672 Pain in left foot; D50.9 Iron deficiency anemia, unspecified; M17.12 Unilateral primary osteoarthritis, left knee; I50.9 Heart failure, unspecified; E11.9 Type 2 diabetes mellitus without complications | CPT/HCPCS: 82728; 83550 ==

== ENCOUNTER 2021-07-27 14:34 | Outpatient (CLI) | payer BC, MEDICAID, SELFPAY ==
--- NOTE | 2021-07-27 14:52 | MM_ITS ---
WS: [id number] BILATERAL SCREENING DIGITAL BREAST TOMOSYNTHESIS MAMMOGRAM WITH CAD HISTORY: SCREEN COMPARISON: 01/09/2010 Bilateral CC and MLO views with tomosynthesis and synthetic mammography submitted. Computer aided det ection analyzed. Breast composition: There are scattered areas of fibroglandular density. No suspicious masses, microc alcifications or architectural distortion. MM/[place] [id number] IMPRESSION: BI-RADS: 1-Negative FOLLOW UP: 1 Year Follow-up
== END 2021-07-27 14:35 | disposition home or self-care (01) ==
LOC: RAD 14:38
PROVIDERS: PCP Nurse Practitioner Family; Visit Provider Nurse Practitioner Family
DX: Z12.31 Encounter for screening mammogram for malignant neoplasm of breast (principal)
CPT/HCPCS: 77063; 77067

== ENCOUNTER → 2021-08-15 15:15 | Outpatient (BNVA) | payer BC, MEDICAID, SELFPAY | PROVIDERS: PCP Nurse Practitioner Family; Referring Provider Nurse Practitioner Family; Visit Provider Podiatrist Foot & Ankle Surgery | DX: M72.2 Plantar fascial fibromatosis (principal); Q72.899 Other reduction defects of unspecified lower limb; M79.671 Pain in right foot; M79.672 Pain in left foot | CPT/HCPCS: 73630; 99204 ==

== ENCOUNTER 2021-08-22 15:57 | Emergency (ER) | payer BC, MEDICAID, SELFPAY ==
--- NOTE | 2021-08-22 16:04 | XRR_ITS ---
PROCEDURE INFORMATION: Exam: XR Chest Exam date and time: 08/22/2021 7:31 PM Age: 51 years old Clinical indication: Angina; Additional info: Chest pain TECHNIQUE: Imaging protocol: Radiologic exam of the chest. Views: 1 view. COMPARISON: CR XR chest 2V* [id number] 05/28/2021 12:27 PM FINDINGS: Lungs: Unremarkable. No consolidation. Pleural spaces: Unremarkable. No pleural effusion. No pneumothorax. Heart/Mediastinum: Unremarkable. No cardiomegaly. Bones/joints: Unremarkable. XR/XR chest 1V portable [id number] IMPRESSION: No acute findings.
--- NOTE | 2021-08-22 16:04 | ECG_ITS ---
[facility] Test Date: 2021-08-22 Pat Name: Viviana Ramey Department: Room: Gender: Female Occupational Therapist Rehab Manager: : 1970 Requested By: Charissa Murray Order Number: [id number] Prashanth MD: Meir Ramirez M.D. Measurements Intervals [place] Rate: 62 P: 21 IA: 171 QRS: 45 QRSD: 78 T: 60 QT: 401 QTc: 408 Interpretive Statements SINUS RHYTHM NONSPECIFIC T-WAVE ABNORMALITY Compared to ECG 08/22/2021 16:34:30 No significant changes Electronically Signed On 08-22-2021 23:42:05 CDT by Meir Ramirez M.D. [email or web address]/[id number]
[2021-08-22 16:28] VITALS: BP 159/84; PULSE 64; RESP 18; TEMP 36.7; O2SAT 96
--- NOTE | 2021-08-22 18:04 | ECG_ITS ---
[facility] Test Date: 2021-08-22 Pat Name: Viviana Ramey Department: Room: Gender: Female Cake Maker: : 1970 Requested By: Charissa Murray Order Number: [id number] Alford MD: Meir Ramirez M.D. Measurements Intervals [place] Rate: 64 P: 27 ME: 174 QRS: 48 QRSD: 78 T: 70 QT: 400 QTc: 416 Interpretive Statements SINUS RHYTHM NONSPECIFIC T-WAVE ABNORMALITY Compared to ECG 03/06/2021 16:19:31 No significant changes Electronically Signed On 08-23-2021 22:47:09 CDT by Meir Ramirez M.D. [email or web address]/store/[id number]
[2021-08-22 18:57] LABS: Basophils % 0.2 %; Eosinophils % 0.1 %; Hematocrit 42.8 % (37.0-47.0); Hemoglobin 13.9 g/dL (11.5-15.3); Lymphocytes % 12.1 %; Mean Corpuscular HGB Conc 32.5 g/dL (30.0-36.0); Mean Corpuscular Hemoglobin 27.2 pg (28.0-34.0); Mean Corpuscular Volume 83.8 fl (81-99); Mean Platelet Volume 11.4 fL (7.4-10.4); Monocytes # 0.3 10^3/uL (0.2-0.9); Monocytes % 1.6 %; Neutrophils # 13.79 10^3/uL (1.8-7.7); Neutrophils % 85.4 %; Nucleated Red Blood Cells % 0 %; Platelet Count 366 10^3/cmm (130-400); Red Blood Count 5.11 10^6/uL (4.1-5.3); Red Cell Distribution Width 14.6 % (12.1-15.1); White Blood Count 16.1 10^3/uL (4.0-10.0)
[2021-08-22 19:17] LABS: Alanine Aminotransferase 15 U/L (0-33); Albumin Level 4.2 g/dL (3.5-5.2); Alkaline Phosphatase 69 IU/L (35-105); Anion Gap 16.2 (5-19); Aspartate Amino Transferase 11 U/L (0-32); Blood Urea Nitrogen 16 mg/dL (6-20); Calcium 8.7 mg/dL (8.5-10.5); Carbon Dioxide 26 mmol/L (22-29); Chloride 99 mmol/L (98-107); Creatinine Clr Calc Pharmacy 107.7292; Globulin 3.2 g/dL (1.3-4.6); Glomerular Filtration Rate 87.9 mL/min (90-130); Glucose 171 mg/dL (65-115); Osmolality Calculated 289 mOsm/kg (285-295); Potassium 4.2 mmol/L (3.5-5.1); Sodium 137 mmol/L (136-145); Total Bilirubin 0.2 mg/dL (0.15-1.2); Total Protein 7.4 g/dL (6.6-8.7)
[2021-08-22 19:18] LABS: Troponin(5th) Baseline 6 ng/L (0-10)
--- NOTE | 2021-08-22 19:28 | ED_ITS ---
HPI - Chest Pain General: Chief Complaint: Chest Pain Stated Complaint: Chest pain Time Seen by Provider: 08/22/21 19:21 Source: patient Mode of arrival: ambulatory Limitations: no limitations History of Present Illness: 51-year-old female who states that she had some chest pain that started today at 230 states it is a sharp pain that lasted roughly 10 to 20 minutes she states that since then its lasted and is practically resolved she denies any pain currently. No history of coronary artery disease she denies any fever she denies any shortness of breath denies any nausea or diaphoresis she denies any worsening improving factors. Associated symptoms: Deny abdominal pain, dyspnea, fever(s), nausea or vomiting Review of Systems Const: Denies: fever(s), chills, body aches or change in appetite Eyes: Denies: blurry vision or eye discomfort ENMT: Denies: throat pain or dental pain Card: Reports: chest pain Resp: Denies: dyspnea GI: Denies: abdominal pain, nausea, vomiting or diarrhea : Denies: dysuria Musc: Denies: neck pain or back pain Skin/Breast: Denies: rash Neuro: Denies: headache(s) Psych: Denies: depression Krish/Lymph: Denies: easy bruising All/Imm: Denies: urticaria PFSH ED PFSH: Medical History Diabetes Elevated C-reactive protein (CRP) Hyperlipidemia Hypertension Metabolic syndrome Obesity Obstructive sleep apnea Encouraged BiPAP at night PCOS (polycystic ovarian syndrome) Psychiatric care Status post hysteroscopy Hysteroscopy with dilation and curettage via myosure performed on 06/23/[address] Pozo Surgical History S/P appendectomy 12/1989 S/P carpal tunnel release right wrist S/P section 10/2001 S/P cholecystectomy 01/1992 Status post surgical removal of ganglion cyst 07/03/2017- right foot Family History Grandfather Diabetes paternal Stroke maternal and paternal Hypertension paternal Mother Diabetes from pancreatitis Grandfather Heart disease Grandmother Heart disease paternal Hypertension Father Heart disease Hypertension Heart attack, Onset Age: 65 stents Sister Hypertension Social History (Reviewed 08/15/21 @ 15:47 by NICOLE Puckett Smoking and tobacco status: never smoked History of recent travel: No Female Reproductive History: Date of last menstrual period: 12/11/18 Physical Exam Const: COMMON NORMALS: no acute distress, patient oriented x3 and healthy appearing HENMT: COMMON NORMALS: normocephalic and atraumatic HEAD & SCALP: normocephalic and atraumatic Eye: COMMON NORMALS: Equal, round and reactive pupils present and EOMs intact bilaterally PUPIL: Yes Equal, round and reactive pupils present Neck/C-Spine: COMMON NORMALS: full ROM and supple Chest: COMMONS NORMALS: normal inspection of the chest and normal palpation of entire chest wall Resp: COMMON NORMALS: normal respiratory effort, No retractions, No use of accessory muscles and clear to auscultation bilaterally AUSCULTATION: clear to auscultation bilaterally Cardio: COMMON NORMALS: regular rate, regular rhythm and No murmurs present (Cardio) RATE: regular rate RHYTHM: regular rhythm GI: COMMON NORMALS: Normal to inspection, nondistended, normoactive bowel sounds present, Soft to palpation, non-tender and no masses PALPATION: Yes Soft to palpation Extremity: COMMON NORMALS: normal to inspection and full ROM Neuro: COMMON NORMALS: patient oriented x3, moves all extremities and no focal motor deficits Psych: COMMON NORMALS: mental status grossly normal, Normal thought process present and cooperative THOUGHT PROCESS: Normal thought process present Skin: COMMON NORMALS: no rashes or lesions noted and no wounds GENERAL SKIN EXAM: no rashes or lesions noted Course Vital Signs: Vital signs: Vital Signs Temperature 98.0 F 08/22/21 16:28 Pulse Rate 60 08/22/21 20:30 Respiratory Rate 15 08/22/21 20:30 Blood Pressure 167/99 08/22/21 20:30 Pulse Oximetry 97 08/22/21 20:30 MDM - Chest Pain Medical Decision Making Patient presents here with chest pain that is atypical in nature patient's troponins here are negative she is well-appearing here no signs of pulmonary embolism or dissection patient is stable for discharge is to follow-up PCP and return if worsening. Lab Data : 08/22/21 18:44 08/22/21 18:44 Radiology Impressions Chest X-Ray 08/22/21 16:04 IMPRESSION: No acute findings. Laboratory Results WBC 16.1 10^3/uL (4.0-10.0) H 08/22/21 18:44 RBC 5.11 10^6/uL (4.1-5.3) 08/22/21 18:44 Hgb 13.9 g/dL (11.5-15.3) 08/22/21 18:44 Hct 42.8 % (37.0-47.0) 08/22/21 18:44 MCV 83.8 fl (81-99) 08/22/21 18:44 MCH 27.2 pg (28.0-34.0) L 08/22/21 18:44 MCHC 32.5 g/dL (30.0-36.0) 08/22/21 18:44 RDW 14.6 % (12.1-15.1) 08/22/21 18:44 Plt Count 366 10^3/cmm (130-400) 08/22/21 18:44 MPV 11.4 fL (7.4-10.4) H 08/22/21 18:44 Neut % (Auto) 85.4 % 08/22/21 18:44 Lymph % (Auto) 12.1 % 08/22/21 18:44 [place] % (Auto) 1.6 % 08/22/21 18:44 Eos % (Auto) 0.1 % 08/22/21 18:44 Baso % (Auto) 0.2 % 08/22/21 18:44 Neut # (Auto) 13.79 10^3/uL (1.8-7.7) H 08/22/21 18:44 Lymph # (Auto) 2.0 10^3/uL (0.8-4.8) 08/22/21 18:44 [place] # (Auto) 0.3 10^3/uL (0.2-0.9) 08/22/21 18:44 Eos # (Auto) 0.0 10^3/uL (0.0-0.8) 08/22/21 18:44 Baso # (Auto) 0.0 10^3/uL (0.0-0.1) 08/22/21 18:44 Nucleated RBC % (auto) 0 % 08/22/21 18:44 Nucleated RBCs # 0.0 /100WBC 08/22/21 18:44 Sodium 137 mmol/L (136-145) 08/22/21 18:44 Potassium 4.2 mmol/L (3.5-5.1) 08/22/21 18:44 Chloride 99 mmol/L (98-107) 08/22/21 18:44 Carbon Dioxide 26 mmol/L (22-29) 08/22/21 18:44 Anion Gap 16.2 (5-19) 08/22/21 18:44 BUN 16 mg/dL (6-20) 08/22/21 18:44 Creatinine 0.7 mg/dL (0.5-0.9) 08/22/21 18:44 GFR Calculation 87.9 mL/min (90-130) L 08/22/21 18:44 Glucose 171 mg/dL (65-115) H 08/22/21 18:44 Calculated Osmolality 289 mOsm/kg (285-295) 08/22/21 18:44 Calcium 8.7 mg/dL (8.5-10.5) 08/22/21 18:44 Total Bilirubin 0.2 mg/dL (0.15-1.2) 08/22/21 18:44 AST 11 U/L (0-32) 08/22/21 18:44 ALT 15 U/L (0-33) 08/22/21 18:44 Alkaline Phosphatase 69 IU/L (35-105) 08/22/21 18:44 Troponin T Baseline 6 ng/L (0-10) 08/22/21 18:44 Troponin T 120 Minute 6.00 ng/L (0-10) 08/22/21 20:04 Delta Troponin T 0 ABS# (0-10) 08/22/21 20:04 Total Protein 7.4 g/dL (6.6-8.7) 08/22/21 18:44 Albumin 4.2 g/dL (3.5-5.2) 08/22/21 18:44 Globulin 3.2 g/dL (1.3-4.6) 08/22/21 18:44 EKG Data EKG 1: I personally reviewed and interpreted this EKG as follows: EKG interpretation date: 08/22/21 EKG interpretation time: 16:34 Interpretation: nsr hr [address] or t wave abnormalities qrs 78 qtc 410 EKG 2: I personally reviewed and interpreted this EKG as follows: EKG interpretation date: 08/22/21 EKG interpretation time: 18:37 Interpretation: nsr hr [address] or t wave abnormalities qrs 78 qtc 406 Discharge Plan Discharge Patient Disposition: Home Clinical Impression: Chest pain Qualifiers: Chest pain type: unspecified Qualified Code(s): R07.9 - Chest pain, unspecified Condition: Stable Prescriptions: No Action miscellaneous medical supply Kit 1 ea miscellaneous .Q HS Qty: 1 0RF Rx Instructions: C-Pap Mask and associated equipment to fit machine. (DME) blood-glucose meter Kit See Rx Instructions .Route Qty: 1 0RF Rx Instructions: As directed albuterol sulfate 90 mcg/actuation HFA aerosol inhaler 2 puff inhalation QID PRN (Reason: shortness of breath or wheezing) Qty: 8.5 0RF Aquaphor Healing 41 % ointment 1 applic topical DAILY PRN (Reason: dry skin) Qty: 85 0RF fluticasone propionate 50 mcg/actuation spray,suspension 2 spray intranasal DAILY 180 Days Qty: 16 5RF Rx Instructions: administer into each nostril metformin 750 mg tablet extended release 24 hr 750 mg PO BID Qty: 60 3RF Rx Instructions: take with food 340 B gabapentin 300 mg capsule 300 mg PO .HS Qty: 30 0RF Rx Instructions: 340 b if needed hydrochlorothiazide 50 mg tablet 50 mg PO QAM Qty: 30 0RF Rx Instructions: 340 b if needed ferrous gluconate 324 mg (37.5 mg iron) tablet 324 mg PO DAILY Qty: 30 0RF valsartan 40 mg tablet 40 mg PO DAILY Qty: 30 0RF Rx Instructions: 340b pantoprazole [Protonix] 40 mg tablet,delayed release (DR/EC) 40 mg PO DAILY 56 Days Qty: 56 0RF Rx Instructions: If unaffordable then run 340 B celecoxib 100 mg capsule 100 mg PO BID Qty: 60 0RF Rx Instructions: 340 B if unaffordable. STOP MOBIC prednisone 10 mg tablet 10 mg PO DAILY 12 Days Qty: 42 0RF Rx Instructions: 12 day taper Instructions on how to take was given to patient in clinic. buspirone 7.5 mg tablet 7.5 mg PO BID 90 Days Qty: 180 0RF Discharge Orders: Discharge ED (Routine); Ordered 08/22/21 Ordered By: Shy Castelan Referrals: Nara Roger FNP-Crystla [Primary Care Provider] - Carlin Rivera M.D [Physician] - 1-3 days Discharge Diet: Advance as tolerated Discharge Activity: Resume usual activity Patient Instructions: Chest Pain (ED) Coding Level of Care Code ED Crowning Inspector for Chg Fwd Exam Comprehensive
[2021-08-22 19:30] VITALS: BP 150/91; PULSE 60; RESP 18; O2SAT 97
[2021-08-22 20:00] VITALS: BP 153/97; PULSE 61; RESP 17; O2SAT 98
[2021-08-22 20:30] VITALS: BP 167/99; PULSE 60; RESP 15; O2SAT 97
[2021-08-22 21:01] LABS: Troponin 5 2HR Delta 0 ABS# (0-10)
[2021-08-22 21:20] VITALS: BP 179/99; PULSE 68; RESP 16; O2SAT 100
--- NOTE | 2021-08-24 08:52 | DCPLANNER ---
Addendum entered by Christal Quinonez 09/04/21 11:11: Patient had a follow up appointment scheduled for 09.03.[address] Morel at [facility] - patient did attend appointment. Original Note: mountain services manager had message to schedule a follow up appointment for patient with cardiology. mountain services manager sent patients information to the front office staff at [facility]. Patients information will be printed and reviewed. Clinic will call patient with appointment information.
== END 2021-08-22 21:22 | disposition home or self-care (01) ==
PROVIDERS: Physician Assistant; Emergency Provider Emergency Medicine; PCP Nurse Practitioner Family
DX: R07.9 Chest pain, unspecified (principal); Z79.84 Long term (current) use of oral hypoglycemic drugs; E11.9 Type 2 diabetes mellitus without complications; E78.5 Hyperlipidemia, unspecified; I10 Essential (primary) hypertension
CPT/HCPCS: 71045; 80053; 84484; 85025; 93005; 99285

== ENCOUNTER → 2021-09-03 11:41 | Outpatient (BNVA) | payer BC, MEDICAID, SELFPAY | PROVIDERS: PCP Nurse Practitioner Family; Visit Provider Internal Medicine Cardiovascular Disease | DX: I10 Essential (primary) hypertension (principal); R07.9 Chest pain, unspecified; R00.2 Palpitations | CPT/HCPCS: 99213 ==

== ENCOUNTER 2021-09-10 12:14 | Outpatient (CLI) | payer BC, MEDICAID, SELFPAY ==
[2021-09-10 12:57] LABS: Basophils % 0.2 %; Eosinophils # 0.2 10^3/uL (0.0-0.8); Eosinophils % 2.1 %; Hematocrit 44.4 % (37.0-47.0); Lymphocytes # 2.6 10^3/uL (0.8-4.8); Lymphocytes % 26.1 %; Mean Corpuscular HGB Conc 31.5 g/dL (30.0-36.0); Mean Corpuscular Hemoglobin 26.8 pg (28.0-34.0); Mean Corpuscular Volume 84.9 fl (81-99); Mean Platelet Volume 11.1 fL (7.4-10.4); Monocytes # 0.5 10^3/uL (0.2-0.9); Neutrophils % 66.2 %; Nucleated Red Blood Cells % 0 %; Platelet Count 377 10^3/cmm (130-400); Red Blood Count 5.23 10^6/uL (4.1-5.3); Red Cell Distribution Width 14.4 % (12.1-15.1); White Blood Count 9.8 10^3/uL (4.0-10.0)
[2021-09-10 13:21] LABS: Estmated Average Glucose 137; Hemoglobin A1C 6.4 % (4.0-6.0)
[2021-09-10 13:35] LABS: Alanine Aminotransferase 19 U/L (0-33); Albumin Level 4.5 g/dL (3.5-5.2); Alkaline Phosphatase 69 IU/L (35-105); Blood Urea Nitrogen 12 mg/dL (6-20); Calcium 9.4 mg/dL (8.5-10.5); Carbon Dioxide 28 mmol/L (22-29); Chloride 99 mmol/L (98-107); Ferritin 163 ng/mL (15-150); Globulin 2.9 g/dL (1.3-4.6); Glucose 120 mg/dL (65-115); Iron 55 ug/dL (37-145); Osmolality Calculated 289 mOsm/kg (285-295); Sodium 139 mmol/L (136-145); Total Bilirubin 0.5 mg/dL (0.15-1.2); Total Protein 7.4 g/dL (6.6-8.7)
[2021-09-10 13:44] LABS: Anion Gap 16.1 (5-19); Aspartate Amino Transferase 22 U/L (0-32); Potassium 4.1 mmol/L (3.5-5.1)
[2021-09-10 15:26] LABS: Chol HDL Ratio 4.76 mg/dL (0.0-4.40); Cholesterol 176 mg/dL (0-200); HDL Cholesterol 37 mg/dL (60-100); LDL Cholesterol Calculated 97 mg/dL (50-129); LDL HDL Ratio 2.62 RATIO (0.00-3.22); Triglycerides 208 mg/dL (0-150)
[2021-09-10 17:11] LABS: Percent Saturation 17.2 % (20-50); Total Iron Binding Capacity 319 mcg/dl; Unsaturated Iron Binding 264 ug/dL (112-347)
== END 2021-09-10 12:15 | disposition home or self-care (01) ==
LOC: LAB 12:16
PROVIDERS: PCP Internal Medicine; Visit Provider Nurse Practitioner Family
DX: E11.9 Type 2 diabetes mellitus without complications (principal); Z13.6 Encounter for screening for cardiovascular disorders; D50.9 Iron deficiency anemia, unspecified; Z13.1 Encounter for screening for diabetes mellitus
CPT/HCPCS: 36415; 80053; 80061; 82728; 83036; 83540; 83550; 85025

== ENCOUNTER → 2021-09-17 13:44 | Outpatient (BNVA) | payer BC, MEDICAID, SELFPAY | PROVIDERS: PCP Internal Medicine; Visit Provider Podiatrist Foot & Ankle Surgery | DX: M72.2 Plantar fascial fibromatosis (principal); Q72.899 Other reduction defects of unspecified lower limb | CPT/HCPCS: 99213; 99214 ==

== ENCOUNTER 2021-09-20 11:31 | Outpatient (CLI) | payer BC, MEDICAID, SELFPAY ==
--- NOTE | 2021-09-20 11:57 | XR_ITS ---
WS: [id number] [place] [id number] REASON FOR EXAM: bilateral knee pain FINDINGS: RIGHT KNEE: Moderate to significant narrowing of the medial knee joint space with subchondral sclerosis and narinder nal osteophytosis. Findings appears progressive compared to 03/10/2020. Mild narrowing of the lateral knee joint space with mild subchondral sclerosis and small marginal ost eophytosis. Relatively unchanged compared to 03/10/2020. LEFT KNEE: Moderate narrowing of the medial joint space with moderate subchondral sclerosis and marginal osteoph ytosis. Findings appear unchanged compared to 03/10/2020. Mild narrowing of the lateral knee joint space with mild subchondral sclerosis and small marginal ost eophytosis. These findings appear unchanged compared to 03/10/2020. XR/[place] [id number] IMPRESSION: Osteoarthritis in both knees, more significant and progressive on the right.
== END 2021-09-20 11:32 | disposition home or self-care (01) ==
LOC: RAD 11:34
PROVIDERS: PCP Internal Medicine; Visit Provider Internal Medicine
DX: M17.0 Bilateral primary osteoarthritis of knee (principal)
CPT/HCPCS: 73565

== ENCOUNTER 2021-11-05 16:08 | Outpatient (CLI) | payer BC, MEDICAID, SELFPAY ==
--- NOTE | 2021-11-05 16:59 | XR_ITS ---
WS: [id number] Exam: XR knee LT 3V* [id number] Date/Time of Exam: 11/05/2021 5:00 PM Reason For Exam: RIGHT AND LEFT KNEE PAIN Moderate tricompartmental degenerative change. No fracture or dislocation. No joint effusion. XR/XR knee LT 3V* [id number] IMPRESSION: 1. Moderate tricompartmental DJD. No fracture or other significant finding.
--- NOTE | 2021-11-05 16:59 | XR_ITS ---
WS: [id number] Exam: XR knee RT 3V* [id number] Date/Time of Exam: 11/05/2021 5:00 PM Reason For Exam: RIGHT AND LEFT KNEE PAIN Moderate tricompartmental DJD noted. This is most marked involving the medial joint compartment. No f racture or dislocation. No joint effusion. XR/XR knee RT 3V* [id number] IMPRESSION: 1. Moderate DJD most marked involving the medial joint compartment.
== END 2021-11-05 16:09 | disposition home or self-care (01) ==
PROVIDERS: PCP Internal Medicine; Visit Provider Nurse Practitioner Family
DX: M17.0 Bilateral primary osteoarthritis of knee
CPT/HCPCS: 73562

== ENCOUNTER → 2021-11-26 09:35 | Outpatient (BNVA) | payer BC, MEDICAID, SELFPAY | PROVIDERS: PCP Internal Medicine; Visit Provider Student in an Organized Health Care Education/Training Program | DX: M17.0 Bilateral primary osteoarthritis of knee (principal); E66.9 Obesity, unspecified | CPT/HCPCS: 73560; 73565 ==

== ENCOUNTER 2021-12-24 06:00 | Outpatient (CLI) | payer BC, MEDICAID, SELFPAY | END 2021-12-24 06:01 | disposition home or self-care (01) | LOC: SPT 01-05 09:40 | PROVIDERS: PCP Internal Medicine; Visit Provider Student in an Organized Health Care Education/Training Program | DX: Z46.89 Encounter for fitting and adjustment of other specified devices (principal); M25.561 Pain in right knee; G89.29 Other chronic pain | CPT/HCPCS: 97760; L1852 ==

== ENCOUNTER 2022-03-04 14:12 | Outpatient (CLI) | payer BC, MEDICAID, SELFPAY | END 2022-03-04 14:13 | disposition home or self-care (01) | LOC: SPT 14:12 | PROVIDERS: PCP Internal Medicine; Visit Provider Student in an Organized Health Care Education/Training Program | DX: Z46.89 Encounter for fitting and adjustment of other specified devices (principal); M17.11 Unilateral primary osteoarthritis, right knee | CPT/HCPCS: 97760; L1852 ==

== ENCOUNTER 2022-03-28 14:51 | Outpatient (CLI) | payer BC, MEDICAID, SELFPAY ==
--- NOTE | 2022-03-28 15:15 | MR_ITS ---
WS: [id number] MRI RIGHT KNEE NONCONTRAST TECHNIQUE: Axial PD, coronal PD fat sat, coronal PD, sagittal PD, and sagittal PD fat-sat images obta ined. CLINICAL INFORMATION: Rule out tear of meniscal COMPARISON: None. FINDINGS: Moderate to advanced tricompartmental arthritis RIGHT knee worse medial joint compartment. Hypertroph ic patella. Advanced degenerative narrowing at the patellofemoral articulation. Distal quadriceps and patella tendons are intact. Hypertrophic patella. Normal ACL and PCL. Hypertrop hic changes along the joint line. Moderate chondromalacia patella. Normal medial and lateral patellar retinaculum. Subcutaneous edema. Small joint effusion. Medial and lateral collateral ligaments are intact. Moderate chondromalacia medial and lateral joint compartments. Chronic thinning of the medial meniscus. Horizontal tear medial meniscus with blunting of the anterior horn. Extension to the articular surface at the periphery. Peripheral extrusion of th e medial meniscus. Tiny radial tear involving the lateral meniscus best seen on coronal imaging a few loose bodies in the posterior joint compartment.. MR/MR knee RT wo con* [id number] IMPRESSION: 1. ACL and PCL are intact. 2. Moderate to advanced tricompartmental arthritis worse in the medial joint c ompartment advanced for patient this age. 3. Horizontal tear involving the medial meniscus with peripheral extrusion. Th is extends to the peripheral articular surface. 4. Tiny radial tear involving the lateral meniscus best seen on coronal imagin g. 5. A few intra-articular loose bodies. 6. Moderate chondromalacia patella. Small joint effusion with subcutaneous al ma. 7. Medial and lateral collateral ligaments are intact. Outbridge grading:
== END 2022-03-28 14:52 | disposition home or self-care (01) ==
PROVIDERS: PCP Internal Medicine; Visit Provider Student in an Organized Health Care Education/Training Program
DX: M17.11 Unilateral primary osteoarthritis, right knee (principal); M25.461 Effusion, right knee; M25.561 Pain in right knee; M22.41 Chondromalacia patellae, right knee
CPT/HCPCS: 73721

== ENCOUNTER 2022-04-30 07:07 | Day surgery (SDC) | payer BC, MEDICAID, SELFPAY ==
[2022-04-29 12:45] VITALS: BMI 41.7
[2022-04-30] VITALS (7 sets, daily range): BP systolic 110–146; BP diastolic 64–90; PULSE 68–75; RESP 14–18; TEMP 36.1–36.6; O2SAT 98–100
[2022-04-30] MEDS: sodium chloride 0.9% 1,000 ML 30 ML IV (08:24)
[2022-04-30] MEDS: acetaminophen 1,000 MG/100 ML PIGGYBACK 400 MG IV (08:28)
[2022-04-30] MEDS: ketorolac 30 mg/mL INJ IVP (08:29)
--- NOTE | 2022-04-30 08:42 | W.PM.OPSUD ---
Surgery/Procedure H&P Update DATE OF PROCEDURE: April 30, 2022 DATE H&P PERFORMED: 04/03/22 CHANGES TO PREVIOUS DOCUMENTATION: None PREOP DIAGNOSIS: Right knee medial meniscus tear, lateral meniscus tear, loose bodies PRIMARY INDICATION FOR PROCEDURE: Right knee medial meniscus tear, lateral meniscus tear, loose bodies PLANNED PROCEDURE: Operation Date: 04/30/22 08:55 Proposed Procedures p Right knee diagnostic and surgical arthroscopy 33699 with partial medial [id number] and partial lateral [id number] chondroplasty?95056 and loose bodies removal.34898,S83.206A,M23.41, M94.261(Right) - Abundio Jolley, DO
--- NOTE | 2022-04-30 09:30 | P.ANESASSM_ITS ---
Pre-Anesthetic Assessment Height/Weight: Height 1.55 m Weight 100.244 kg Temp Pulse Resp BP Pulse Ox O2 Del Method 97.0 F L 69 18 146/90 99 04/30/22 07:37 04/30/22 07:37 04/30/22 07:37 04/30/22 07:37 04/30/22 07:37 04/30/22 07:49 Preop Diagnosis: Right knee medial meniscus tear, lateral meniscus tear, loose bodies Operation Date: 04/30/22 08:55 Proposed Procedures p Right knee diagnostic and surgical arthroscopy 94099 with partial medial [id number] and partial lateral [id number] chondroplasty?94991 and loose bodies removal.37192,S83.206A,M23.41, M94.261(Right) - Abundio Jolley DO Familial anesthetic complications: None Was Beta Mil taken within 24 hours: N/A Was Clonidine taken within 24 hours: N/A Last intake: Intake Last Liquid Date 04/29/22 Last Liquid Time 21:00 Last Solid Date 04/29/22 Last Solid Time 21:00 Social No alcohol and No tobacco Exam alert, oriented x 3, clear to auscultation bilaterally and regular rate & rhythm Airway Mallampati: Class III Dentition: chipped Pulmonary Sleep Apnea CV/HEM Stable Angina (negative cardiac work up) and Hypertension GI Peptic Ulcer Disease Metabolic Diabetes Mellitus, Hyperlipidemia and Morbid Obesity Anesthetic Plan ASA status: 3 Anesthesia: General Risk of > 500 ml blood loss (7ml/kg in children): No Medications/Allergies Home Medications Medication Instructions Recorded Confirmed Last Taken Type fluticasone propionate 50 2 spray intranasal DAILY 6 months 03/21/21 04/29/22 Unknown Rx mcg/actuation nasal #16 grams spray,suspension miscellaneous medical supply 1 ea miscellaneous .Q HS 04/18/21 04/03/22 Unknown Rx Obstructive Sleep Apnea. #1 ea albuterol sulfate 90 mcg/actuation 2 puff inhalation QID PRN 05/28/21 04/30/22 Unknown Rx aerosol inhaler shortness of breath or wheezing #8.5 grams blood-glucose meter #1 ea 05/28/21 04/03/22 Unknown Rx buspirone 7.5 mg tablet 7.5 mg PO BID 90 days #180 tabs 09/05/21 04/30/22 04/23/22 Rx gabapentin 300 mg capsule 300 mg PO Q12H #60 caps 09/05/21 04/30/22 04/23/22 Rx hydrochlorothiazide 50 mg tablet 50 mg PO QAM #90 tabs 09/05/21 04/30/22 04/23/22 Rx pantoprazole 40 mg tablet,delayed 40 mg PO DAILY #90 tabs 09/05/21 04/30/22 04/30/22 05:30 Rx release (Protonix) valsartan 40 mg tablet 40 mg PO DAILY #90 tabs 09/05/21 04/30/22 04/29/22 Rx chlorzoxazone 500 mg tablet 500 mg PO TID PRN Muscle Spasm 11/13/21 04/30/22 04/23/22 History celecoxib 200 mg capsule 200 mg PO BID #60 caps 11/15/21 04/30/22 04/23/22 Rx SCHEDULE SUPERVISOR BRACE - RIGHT KNEE #1 ea 11/26/21 04/03/22 Unknown Rx blood sugar diagnostic (More DesignTouch #100 ea 11/26/21 04/03/22 Unknown Rx Ultra Test strips) lancets 30 gauge (More DesignTouch Delica #200 ea 11/26/21 04/03/22 Unknown Rx Lancets) doxycycline hyclate 100 mg capsule 100 mg PO DAILY #10 caps 12/26/21 04/30/22 04/23/22 Rx promethazine-DM 6.25 mg-15 mg/5 mL 5 - 10 ml PO Q6H PRN cough #240 mL 12/26/21 04/30/22 04/23/22 Rx oral syrup [place] hinged knee brace #1 ea 03/04/22 04/03/22 Unknown Rx acyclovir 800 mg tablet 800 mg PO QID #28 tabs 03/14/22 04/30/22 04/23/22 Rx prednisone 20 mg tablet 20 mg PO BID #10 tabs 03/14/22 04/30/22 04/23/22 Rx Allergies Allergy/AdvReac Type Severity Reaction Status Date / Time erythromycin base Allergy Intermediate hives, Verified 04/30/22 07:29 itching, burning KWAKU Inhibitors AdvReac Intermediate Cough Verified 04/30/22 07:29 Current Medications Generic Name Dose Route Start Last Admin Trade Name Freq PRN Reason Stop Dose Admin Sodium Chloride 1,000 mls @ 30 mls/hr 04/30/22 07:30 04/30/22 08:24 Sodium Chloride 0.9% IV 05/01/22 07:29 30 mls/hr .Q24H FERNANDA Administration PFSH Anesthesia Medical History (Updated 04/07/22 @ 21:35 by Abundio Jolley DO) Chest pain Chondromalacia, right knee Degenerative joint disease of right knee Diabetes Elevated C-reactive protein (CRP) Hyperlipidemia Hypertension Loose body in knee, right knee Metabolic syndrome Obesity Obstructive sleep apnea Encouraged BiPAP at night Palpitations PCOS (polycystic ovarian syndrome) Psychiatric care Status post hysteroscopy Hysteroscopy with dilation and curettage via myosure performed on 06/23/[address] Pzoo Tear of meniscus of right knee Surgical History S/P appendectomy 12/1989 S/P carpal tunnel release right wrist S/P section 10/2001 S/P cholecystectomy 01/1992 Status post surgical removal of ganglion cyst 07/03/2017- right foot Family History Grandfather Diabetes paternal Stroke maternal and paternal Hypertension paternal Mother Diabetes from pancreatitis Grandfather Heart disease Grandmother Heart disease paternal Hypertension Father Heart disease Hypertension Heart attack, Onset Age: 65 stents Sister Hypertension Social History Smoking and tobacco status: never smoked Data Anesthesia Cardiac Studies: Echocardiogram 05/02/21 Echocardiogram Ultrasound 03/21/19 Sestamibi Stress Test (Cardiology) 03/21 Cardiac Event Monitor 09/10/21
[2022-04-30] MEDS: ceFAZolin 2,000 MG in sodium chloride 0.9% (plus) 50 ML 100 MG IV (10:02)
[2022-04-30] MEDS: lidocaine-epi 2% 20 mL INJ 40 ML INJECTION (10:38)
--- NOTE | 2022-04-30 11:04 | P.OP_ITS ---
Operative Report Date of procedure: April 30, 2022 Pre-op diagnosis: Preop Diagnosis Right knee medial meniscus tear, lateral meniscus tear, loose bodies Post-op diagnosis: Right knee medial and lateral meniscus tear Right knee tricompartment chondromalacia Right knee extensive synovitis Procedure done: Right knee diagnostic and surgical arthroscopy partial medial and partial lateral meniscectomies Right knee diagnostic and surgical arthroscopy medial, lateral, patellofemoral compartment chondroplasties Right knee diagnostic and surgical arthroscopy extensive synovectomy of medial, lateral and patellofemoral compartments. Surgeon: Abundio Jolley DO Estimated blood loss: 5 No tourniquet was used IV fluids: See anesthesia record Complications: None Findings: See operative report narrative Condition: stable Disposition: same day Brief History: Patient's been seen and worked up in the outpatient setting findings consistent with the preoperative diagnosis. She has had ongoing right knee pain. I do feel there is a component of arthritis in this patient. She is not a great candidate given her body habitus at this time for a total joint arthroplasty and x-rays she still has some residual joint space and not [id number] articulation. We talked about her treatment options as far as nonoperative and operative invention. We submitted with insurance for gel injection as she has failed cortisone's in the past with only temporary relief. [place] the next best step for this patient would be an MRI which is listed below with results of the medial and lateral meniscus tear as well as possible loose bodies and chondromalacia throughout the knee. We talked about at this point offering a diagnostic and surgical arthroscopy with addressing the meniscus as well as likely chondroplasties given I know she does have some chondromalacia. We talked about the roles of DNS arthroscopy in a patient with existing arthritis and she does understand that this surgery is not a guarantee of curative of her pain and she will likely have some residual pain given her arthritis but hard to differentiate how much is from her arthritis versus her meniscus tears. At this point time this is her next best treatment option as all else is failed and through shared decision making she would like to proceed with a right knee diagnostic and surgical arthroscopy. Once again she understands the risk benefits complication alternatives with surgery understanding her risk of surgery she agrees to proceed. All questions answered. MR/MR knee RT wo con* [id number] IMPRESSION: ? 1.? ACL and PCL are intact. 2.? Moderate to advanced tricompartmental arthritis worse in the medial joint compartment advanced for patient this age. 3.? Horizontal tear involving the medial meniscus with peripheral extrusion. This extends to the peripheral articular surface. 4.? Tiny radial tear involving the lateral meniscus best seen on coronal imaging. 5.? A few intra-articular loose bodies. 6.? Moderate chondromalacia patella. Small joint effusion with subcutaneous edema. 7.? Medial and lateral collateral ligaments are intact. Procedure: Procedure: Patient seen and evaluated in the preoperative holding area.? Consent was reviewed and signed with patient.? Correct extremity was then marked.? Patient seen evaluated Anesthesia Department once cleared for surgery patient was taken back to the operative suite.? Patient was transported onto the OR table in supine position.? All bony prominences well-padded patient was appropriate secured to the bed.? Once appropriately anesthetized a nonsterile tourniquet was applied to the right thigh.? The right lower extremity was then prepped and draped in standard orthopedic fashion.? Final timeout performed.? Patient received appropriate preoperative antibiotics. Patient received local anesthetic of lidocaine with epinephrine into the joint as well as around the portal sites.? No tourniquet was inflated during this case. A standard 2 portal vertical incision diagnostic and surgical arthroscopy of the right knee was performed in standard fashion.? Small stab incision made in the inferolateral portal introduced trocar and arthroscope into the suprapatellar pouch.? Suprapatellar pouch was subsequently visualized and found to have significant synovitis but no loose bodies.? Patient had noticeable significant infrapatellar fat pad and thickening hypertrophic within the patellofemoral compartment. ?The medial gutter was free of loose bodies I then introduced the arthroscope into the medial compartment.? Within the medial compartment I then established my inferior medial working portal utilizing spinal needle outside in technique.? Once established I then visualized our articular cartilage of the medial compartment with a valgus stress.? Patient was found to have grade 2-3 chondromalacia throughout the medial compartment.? Next I inspected the meniscus.? With an arthroscopic probe was utilized to visual? all aspects of the meniscus.? Meniscal root was found to be intact. Utilizing the arthroscopic probe I evaluated the anterior aspect of the meniscus which had a large complex tear of the anterior horn of the medial meniscus as well as a small horizontal flap tear at the body to posterior horn of the medial meniscus. I subsequently introduced arthroscopic shaver and biter and completed a partial medial meniscectomy to stable meniscal tissue at the horizontal flap tear as well as to the tear of the anterior horn of the medial meniscus. I utilized a thermal wand to anneal all of the edges to seal my partial medial meniscectomy. .? Utilizing thermal wand and arthroscopic shaver did perform a medial compartment chondroplasty to stable articular tissue.? Next a introduced the arthroscope to the intercondylar notch.? PCL and ACL were intact. patient had significant thickening of the infrapatellar fat pad spanning into the medial and lateral compartments.? I then performed an extensive synovectomy with the arthroscopic shaver of the patellofemoral medial and lateral compartments as well as the intercondylar notch. Advance the scope into the retrocruciate space and no loose bodies were found. Next I introduced the arthroscope into the lateral compartment the lateral compartment was found to have grade 2-3 chondromalacia throughout.?? The men iscus was inspected and found to have a small tear at the body of the lateral meniscus. Then introduced an arthroscopic shaver and thermal wand to perform a partial lateral meniscectomy to stable meniscal tissue.? I then utilizing the arthroscopic probe evaluated the entirety of the meniscus and the rest was intact. I did utilize an arthroscopic shaver and thermal wand to perform a lateral compartment chondroplasty to stable articular tissue. Next of the arthroscope was placed into the lateral gutter and this was free of loose bodies.? Finally I reintroduced the arthroscope into the patellofemoral compartment.? The patellofemoral was found to have grade 3-4 chondromalacia.??Arthroscopic shaver and thermal wand was used to perform a chondroplasty of the patellofemoral compartment.? This was taken to stable articular tissue.? Next I used the arthroscopic shaver to complete my extensive synovectomy and debridement of the infrapatellar thickened and hypertrophic fat pad to have complete space of the patellofemoral compartment on the medial aspect.? Next I then switched the arthroscope to the medial working portal and visualized the extent extensive synovitis laterally and then introduced the arthroscopic shaver and completed my synovectomy.? This completed patient's diagnostic and surgical arthroscopy.? All fluid was suctioned from the joint.? Once again hemostasis was satisfactory.? All instruments were withdrawn.? Portal sites were closed with interrupted nylon suture.? Dressed with Xeroform 4 x 4's ABD Curlex and Josiah wrap.? Patient was then subsequently awakened from anesthesia and taken to PACU in stable condition. Disposition: Patient taken to PACU in stable condition recovering well.? Will receive appropriate discharge structure as well as pain medication posto peratively as well as daily aspirin for DVT prophylaxis.? We will have patient follow-up with us in the office in 2 weeks.? We will weightbearing as tolerated to the right lower extremity.? Patient understands and agrees with current plan.? All questions answered.
--- NOTE | 2022-04-30 11:04 | P.OP_ITS ---
Brief Operative Note Date of procedure: 04/30/22 Pre-op diagnosis: Right knee medial and lateral meniscus tear, chondromalacia, loose bodies Post-op diagnosis: other (Right knee medial and lateral meniscus tear, tricompartment chondromalacia, extensive synovitis) Procedure Done: Right knee diagnostic and surgical arthroscopy partial medial and partial lateral meniscectomies Right knee diagnostic and surgical arthroscopy medial, lateral, patellofemoral compartment chondroplasties Right knee diagnostic and surgical arthroscopy extensive synovectomy of medial, lateral and patellofemoral compartments. Surgeon: Abundio Jolley Estimated blood loss (mL): 5 Complications: None Post-op Plan: Patient taken to PACU in stable condition recovering well will be allowed to be weightbearing as tolerated to the right knee postoperatively. Given appropriate discharge structure as well as pain medication postoperatively. We will follow- up with me in the office in 2 weeks. Patient understands agrees with current plan. Questions answered. Condition: stable Disposition: same day Coding Level of Care Code Acute Code for Deyanira Nice
--- NOTE | 2022-04-30 11:04 | PM.PACU ---
PACU note Narrative: Patient taken to PACU in stable condition recovering well. Dressing on in place clean dry and intact patient able to wiggle toes plantarflex dorsiflex ankle distal pulses palpable toes warm well perfused. Exam: awake Disposition: discharged
[2022-04-30] MEDS: HYDROcodone-acetaminophen 5-325 mg Tablet 1 TAB PO (11:37)
--- NOTE | 2022-04-30 13:31 | ANE.PACU2 ---
Inpatient post-anesthesia follow up: Airway intact: Yes Vital signs: Temperature 97.2 F Pulse Rate 69 Respiratory Rate 18 Blood Pressure 116/70 Pulse Oximetry 99 Oxygen Delivery Me thod Room Air Oxygen Flow Rate Fraction of Inspir ed Oxygen Hydration adequate: Yes Nausea and vomiting: No Pain level: 1 Mental status: Baseline
== END 2022-04-30 12:16 | disposition home or self-care (01) ==
PROVIDERS: PCP Internal Medicine; Visit Provider Student in an Organized Health Care Education/Training Program
PROC: (CPT 29870; principal; 2022-04-30 08:45)
DX: S83.241A Other tear of medial meniscus, current injury, right knee, initial encounter (principal); S83.281A Other tear of lateral meniscus, current injury, right knee, initial encounter; X58.XXXA Exposure to other specified factors, initial encounter; M23.41 Loose body in knee, right knee; G47.30 Sleep apnea, unspecified; I10 Essential (primary) hypertension; Z87.11 Personal history of peptic ulcer disease; E11.9 Type 2 diabetes mellitus without complications; E78.5 Hyperlipidemia, unspecified; E66.01 Morbid (severe) obesity due to excess calories; Z68.41 Body mass index [BMI] 40.0-44.9, adult; E66.9 Obesity, unspecified
CPT/HCPCS: 29876; 29880; 88305; J0131; J0690; J1100; J1885; J2405; J2704; J2795; J3010; J3490; J7030

== ENCOUNTER 2022-05-20 06:00 | Outpatient (RCR) | payer BC, MEDICAID, SELFPAY | END 2022-06-09 23:59 | disposition home or self-care (01) | LOC: APT 06:00 | PROVIDERS: Visit Provider Student in an Organized Health Care Education/Training Program | DX: Z47.89 Encounter for other orthopedic aftercare (principal) | CPT/HCPCS: 97110; 97161 ==

== ENCOUNTER 2022-06-10 06:00 | Outpatient (RCR) | payer BC, MEDICAID, SELFPAY | END 2022-07-10 23:59 | disposition home or self-care (01) | LOC: APT 06:00 | PROVIDERS: Visit Provider Student in an Organized Health Care Education/Training Program | DX: Z47.89 Encounter for other orthopedic aftercare (principal) | CPT/HCPCS: 97110; 97140 ==

== ENCOUNTER 2022-07-11 01:00 | Outpatient (RCR) | payer BC, MEDICAID, SELFPAY | END 2022-08-09 23:59 | disposition home or self-care (01) | LOC: APT 01:00 | PROVIDERS: Visit Provider Student in an Organized Health Care Education/Training Program | DX: Z47.89 Encounter for other orthopedic aftercare (principal) | CPT/HCPCS: 97110; 97164; 97530 ==

== ENCOUNTER → 2022-10-05 16:35 | Outpatient (BNVA) | payer BC, MEDICAID, SELFPAY | PROVIDERS: Visit Provider Nurse Practitioner Family | DX: R51.9 Headache, unspecified (principal); Z20.822 Contact with and (suspected) exposure to COVID-19 | CPT/HCPCS: 87426 ==

== ENCOUNTER → 2022-10-16 15:23 | Outpatient (BNVA) | payer BC, MEDICAID, SELFPAY | PROVIDERS: Visit Provider Nurse Practitioner Family | DX: R30.0 Dysuria (principal) | CPT/HCPCS: 81000 ==

== ENCOUNTER → 2022-10-23 15:06 | Outpatient (BNVA) | payer BC, MEDICAID, SELFPAY | PROVIDERS: Visit Provider Nurse Practitioner Family | DX: R05.9 Cough, unspecified (principal); Z20.822 Contact with and (suspected) exposure to COVID-19 | CPT/HCPCS: 87426 ==

== ENCOUNTER → 2022-10-31 10:34 | Outpatient (BNVA) | payer BC, MEDICAID, SELFPAY | PROVIDERS: Visit Provider Nurse Practitioner Family | DX: R05.9 Cough, unspecified (principal); J06.9 Acute upper respiratory infection, unspecified; Z20.822 Contact with and (suspected) exposure to COVID-19 | CPT/HCPCS: 87426 ==

== ENCOUNTER 2022-11-22 06:27 | Outpatient (CLI) | payer BC, MEDICAID, SELFPAY ==
[2022-11-22 06:41] VITALS: BMI 44.7
--- NOTE | 2022-11-22 06:42 | NMCV_ITS ---
NM darek perf SPECT r/s* [id number] Viviana Ramey Age: 52 Gender: F : 1970 Exam Date: 11/22/2022 06:42 Ordering Phys: Nabor Wilson MD Technologist: CHEO Macias Exam Location: [facility] [address] Indications: CHEST PAIN STRESS TEST Please see separate stress test report in [facility] for full findings IMAGE PROTOCOL Rest/Stress 1 Lexiscan Day Radiopharmaceutical Dose (mCi) Administration Site Administered by Rest: Tc-99m 10.8 IV Bakari Hernandez, RENAL MEDICINE PHYSICIAN Sestamibi Stress:Tc-99m 32.8 IV Bakari Hernandez, RENAL MEDICINE PHYSICIAN Sestamibi Rest: 22-Nov-2022 60 Discovery 630 Stress: 22-Nov-2022 30 Discovery 630 0.4mg Lexiscan. Images obtained in supine and prone position. SPECT RESULTS Technical Quality: Excellent Raw Data Analysis: Normal Image Corrections: No attenuation or motion correction applied Summed Stress Score: 0 Summed Rest Score: 0 Summed Difference Score: 0 PERFUSION FINDINGS SPECT images demonstrate homogeneous tracer distribution throughout the myocardium. FUNCTIONAL RESULTS (calculated via Gated SPECT) Stress Image LV EF (%): 89 Stress EDV (mL):65 TID: 0.97 Stress ESV (mL):7 FUNCTIONAL FINDINGS: There is normal left ventricular systolic function. IMPRESSIONS 1. Normal myocardial perfusion imaging with no evidence of ischemia 2. LV systolic function is normal Carlin Rivera MD (Electronically Signed) Final Date: 22 November 2022 12:41 S
--- NOTE | 2022-11-22 06:42 | ECG_ITS ---
[facility] Test Date: 2022-11-22 Pat Name: Viviana Ramey Department: Room: Gender: Female Command And Control Officer: : 1970 Requested By: Nabor Wilson Order Number: [id number] Alford MD: Carlin Rivera M.D. Interpretive Statements LEXISCAN Procedure: At the baseline, the blood pressure was 140/74 mmHg with a heart rate of 67 bpm. The electrocardiogram showed normal sinus rhythm, normal axis with normal ST and T's. The Lexiscan was infused over a period of 20 seconds. A total of 0.4 mg of Lexiscan was infused. The stress phase was continued for a total of 5 minutes. Heart rate was at the end of stress phase was 75 bpm and a blood pressure of 141/91 mmHg. The EKG at the peak infusion revealed normal sinus rhythm with no significant ST-T wave changes. Sestamibi was injected 20 seconds after the Lexiscan infusion. Blood pressure at the end of recovery phase was 139/86 mmHg with a heart rate of 71 bpm. Conclusion: 1. Normal EKG response to Lexiscan infusion 2. No Lexiscan induced chest pain or cardiac arrhythmia. 3. Normal blood pressure and heart rate response. 4. Sestamibi/sestamibi perfusion scan pending; see separate report. Electronically Signed On 12-05-2022 12:25:42 CDT by Carlin Rivera M.D. [email or web address]
[2022-11-22] MEDS: regadenoson 0.4 Mg/5 ml Syringe IVP (08:27)
[2022-11-22 09:07] VITALS: BP 139/86; PULSE 72
== END 2022-11-22 06:28 | disposition home or self-care (01) ==
LOC: CDL 06:27
PROVIDERS: PCP Internal Medicine; Visit Provider Internal Medicine
DX: R07.89 Other chest pain (principal)
CPT/HCPCS: 36415; 78452; 93017; 96374; A9500; J2785

== ENCOUNTER 2022-12-06 05:15 | Emergency (ER) | payer BC, MEDICAID, SELFPAY ==
[2022-12-06 05:26] VITALS: BP 179/71; PULSE 66; RESP 16; TEMP 36.7; O2SAT 97; BMI 43.4
--- NOTE | 2022-12-06 05:40 | XRR_ITS ---
PROCEDURE INFORMATION: Exam: XR Right Tibia and Fibula Exam date and time: 12/06/2022 5:45 AM Age: 52 years old Clinical indication: Injury or trauma; Fall; Blunt trauma; Right; Patient HX: Patient slipped and fell in bathroom stepping out of shower. C/O RT lower leg pain. ; Additional info: Fall pain TECHNIQUE: Imaging protocol: Radiologic exam of the right tibia and fibula. Views: 2 views. COMPARISON: No relevant prior studies available. FINDINGS: Bones/joints: Normal. Soft tissues: Normal. XR/XR tibia fibula RT 2V [id number] IMPRESSION: No acute findings.
--- NOTE | 2022-12-06 05:40 | XRR_ITS ---
PROCEDURE INFORMATION: Exam: XR Left Foot Exam date and time: 12/06/2022 5:43 AM Age: 52 years old Clinical indication: Injury or trauma; Fall; Blunt trauma; Patient HX: Patient fell in bathroom stepping out of shower. C/O left foot pain. ; Additional info: Fall pain TECHNIQUE: Imaging protocol: Radiologic exam of the left foot. Views: 3 or more views. COMPARISON: No relevant prior studies available. FINDINGS: Bones/joints: There is moderate hallux valgus deformity. Prominent posterior and plantar calcaneal bone spurs. Soft tissues: Normal. XR/XR foot LT min 3V* [id number] IMPRESSION: There are no acute osseous findings.
--- NOTE | 2022-12-06 05:40 | W.ED.FALL ---
HPI - Fall General: Chief Complaint: Fall Stated Complaint: Fell Time Seen by Provider: 12/06/22 05:19 Source: patient Mode of arrival: ambulatory History of Present Illness: 52-year-old female presents emergency room after a slip and fall in the shower. She complaining of foot and leg pain. No loss conscious did not strike her head. No other injuries. MD complaint: fall Onset (ago): minute(s) Fall from: standing Fall witnessed: no Place fall occurred: home Loss of consciousness: None Prolonged down time: no Symptoms prior to fall: none Context: tripped/slipped Associated symptoms-after fall: Denies abdominal pain, chest pain, confusion, difficulty walking, headache(s), hematuria, lightheadedness, neck pain, numbness, short of breath, vertigo or weakness Review of Systems Const: Denies: fever(s) or chills Card: Denies: chest pain or lightheadedness Resp: Denies: dyspnea GI: Denies: abdominal pain : Denies: hematuria Musc: Denies: neck pain Skin/Breast: Denies: rash Neuro: Denies: headache(s), difficulty walking, vertigo or confusion PFS ED PFSH: Medical History Chest pain Chondromalacia, right knee Degenerative joint disease of right knee Diabetes Elevated C-reactive protein (CRP) Hyperlipidemia Hypertension Loose body in knee, right knee Metabolic syndrome Obesity Obstructive sleep apnea Encouraged BiPAP at night Palpitations PCOS (polycystic ovarian syndrome) Status post hysteroscopy Hysteroscopy with dilation and curettage via myosure performed on 06/23/[address] Pozo Tear of meniscus of right knee Surgical History S/P appendectomy 12/1989 S/P carpal tunnel release right wrist S/P section 10/2001 S/P cholecystectomy 01/1992 Status post surgical removal of ganglion cyst 07/03/2017- right foot Family History Grandfather Diabetes paternal Stroke maternal and paternal Hypertension paternal Mother Diabetes from pancreatitis Grandfather Heart disease Grandmother Heart disease paternal Hypertension Father Heart disease Hypertension Heart attack, Onset Age: 65 stents Sister Hypertension Social History Smoking and tobacco/nicotine status: never used tobacco/nicotine Substance/Drug Use: never Physical Exam Const: GENERAL APPEARANCE: cooperative and comfortable ORIENTATION/CONSCIOUSNESS: Yes awake, Yes oriented to person, Yes oriented to place and Yes oriented to time HENMT: COMMON NORMALS: normocephalic, atraumatic and hearing grossly normal bilaterally HEAD & SCALP: normocephalic and atraumatic Extremity: COMMON NORMALS: normal to inspection, capillary refill normal, no clubbing, cyanosis or edema, no calf tenderness and no pedal edema OTHER: Early ecchymosis noted on the distal anterior tibia on the right. No obvious deformity. Patient also reports pain to the left second and third toes no deformities of those toes no ecchymosis tender to touch. Neurovascular lower extremities bilaterally otherwise intact. Neuro: SENSORIUM/ORIENTATION: Yes oriented to person, Yes oriented to place and Yes oriented to time Skin: COMMON NORMALS: no rashes or lesions noted GENERAL SKIN EXAM: no rashes or lesions noted Course Vital Signs: Vital signs: Vital Signs Temperature 98.1 F 12/06/22 05:26 Pulse Rate 66 12/06/22 05:26 Respiratory Rate 16 12/06/22 05:26 Blood Pressure 179/71 12/06/22 05:26 Pulse Oximetry 97 12/06/22 05:26 MDM - Fall Medical Decision Making No acute fractures on either right leg or left foot. Patient is already on Celebrex can use that as needed along with Tylenol for discomfort. Noted that she also has ibuprofen listed advised to use 1 or the other not both. Follow-up as needed. Medical Records I reviewed the patient's medical records. Lab Data I reviewed the patient's lab results. XR interpretation done by ED provider, pending radiology final review Discharge Plan Discharge Patient Disposition: Home Clinical Impression: Leg pain, Pain in toe of left foot, Fall in shower Condition: Stable Prescriptions: Discontinued ibuprofen 800 mg tablet 800 mg PO Q6H PRN (Reason: pain) 14 Days Qty: 56 0RF No Action fluticasone propionate 50 mcg/actuation spray,suspension 2 spray intranasal DAILY 180 Days Qty: 16 5RF Rx Instructions: administer into each nostril gabapentin 300 mg capsule 300 mg PO Q12H Qty: 60 3RF Rx Instructions: 340 b if needed hydrochlorothiazide 50 mg tablet 50 mg PO QAM Qty: 90 3RF Rx Instructions: 340 b if needed pantoprazole [Protonix] 40 mg tablet,delayed release (DR/EC) 40 mg PO DAILY Qty: 90 3RF Rx Instructions: If unaffordable then run 340 B valsartan 40 mg tablet 40 mg PO DAILY Qty: 90 2RF Rx Instructions: 340b (DME) PROCESS TANK TENDER BRACE - RIGHT KNEE See Rx Instructions .Route .MEDSUPPLY Qty: 1 0RF Rx Instructions: As directed fluconazole [Diflucan] 150 mg tablet 150 mg PO Q3D Qty: 2 0RF Rx Instructions: may repeat second dose 72 hrs after first dose if symptoms persist methylprednisolone [Medrol (Adolph)] 4 mg tablets,dose pack See Rx Instructions PO PER PKG DIR Qty: 21 0RF Rx Instructions: PO PER PKG DIR albuterol sulfate 90 mcg/actuation HFA aerosol inhaler 2 puff inhalation QID PRN (Reason: shortness of breath or wheezing) Qty: 8.5 0RF azithromycin 250 mg tablet See Rx Instructions PO .COMPLEX Qty: 6 0RF Rx Instructions: For 250 mg dose pack: take 500 mg today (day 1), then 250 mg for 4 days (days 2-5) PO celecoxib 200 mg capsule 200 mg PO BID Qty: 60 4RF Rx Instructions: 340 B if unaffordable. STOP MOBIC (DME) Hector hinged knee brace See Rx Instructions .Route .MEDSUPPLY Qty: 1 0RF Rx Instructions: As directed Discharge Orders: Discharge ED (Routine); Ordered 12/06/22 Ordered By: Felton Parsons Referrals: Nabor Wilson MD [Primary Care Provider] - Discharge Diet: Usual diet Discharge Activity: Increase activity as tolerated Patient Instructions: Opioid Safety, Pain Management Activity Restrictions/Additional Instructions: Thank you for choosing [facility] for your healthcare needs today. Please realize this is an emergency room and that we are providing you with a medical screening exam and this may not be complete and all inclusive of all the testing and or work up that you may need to determine your ailment or severity of your illness. It is very important that you follow up as instructed or that you return to the Emergency Department should you have concerns or if your condition changes or worsens in any way. Coding Level of Care Code ED Wire Winding Machine Tender for Deyanira Nice
[2022-12-06] MEDS: HYDROcodone-acetaminophen 5-325 mg Tablet 1 TAB PO (06:17)
== END 2022-12-06 06:20 | disposition home or self-care (01) ==
PROVIDERS: Emergency Provider Family Medicine; PCP Internal Medicine
DX: M79.605 Pain in left leg (principal); M79.675 Pain in left toe(s); W18.2XXA Fall in (into) shower or empty bathtub, initial encounter; E78.5 Hyperlipidemia, unspecified; I10 Essential (primary) hypertension
CPT/HCPCS: 73590; 73630; 99283

== ENCOUNTER → 2023-02-14 12:48 | Outpatient (BNVA) | payer BC, MEDICAID, SELFPAY | PROVIDERS: PCP Internal Medicine; Visit Provider Family Medicine | DX: R50.9 Fever, unspecified (principal); R52 Pain, unspecified; J10.1 Influenza due to other identified influenza virus with other respiratory manifestations | CPT/HCPCS: 87400 ==

== ENCOUNTER → 2023-06-02 11:41 | Outpatient (BNVA) | payer BC, MEDICAID, SELFPAY | PROVIDERS: PCP Internal Medicine; Visit Provider Nurse Practitioner Family | DX: R50.9 Fever, unspecified (principal); R05.9 Cough, unspecified | CPT/HCPCS: 87400; 87426 ==

== ENCOUNTER → 2023-08-04 15:50 | Outpatient (BNVA) | payer BC, MEDICAID, SELFPAY | PROVIDERS: PCP Internal Medicine; Visit Provider Nurse Practitioner Family | DX: R05.9 Cough, unspecified (principal); J06.9 Acute upper respiratory infection, unspecified | CPT/HCPCS: 87426 ==

== ENCOUNTER → 2023-08-11 11:48 | Outpatient (BNVA) | payer BC, MEDICAID, SELFPAY | PROVIDERS: PCP Internal Medicine; Visit Provider Podiatrist Foot & Ankle Surgery | DX: M77.41 Metatarsalgia, right foot; G57.91 Unspecified mononeuropathy of right lower limb | CPT/HCPCS: 73630 ==

== ENCOUNTER 2023-10-09 15:00 | Outpatient (CLI) | payer BC, MEDICAID, SELFPAY ==
--- NOTE | 2023-10-09 15:17 | CT_ITS ---
WS: [id number] CT ABDOMEN PELVIS TECHNIQUE: Contrast-enhanced CT of the abdomen and pelvis with coronal and sagittal reformatted image s. CLINICAL INFORMATION: ELEVATED LFTS COMPARISON: None. DLP: 967.[address] scans at [facility] use at least one of these dose optimization techniques: automated e xposure control; mA and/or kV adjustment per patient size (includes targeted exams where dose is matc hed to clinical indication); or iterative reconstruction. FINDINGS: Mild hepatomegaly. Diffuse fatty infiltration of the liver. Normal portal vein and splenic vein. Prio r cholecystectomy. Splenic granulomas. Normal pancreas. Adrenal glands are normal. Normal renal paren chymal enhancement. No hydronephrosis. Lung bases are well aerated. Calcified granuloma RIGHT lower lobe. Normal GE junction. Normal caliber abdominal aorta. Celiac and SMA appear patent. Tiny fat-containing umbilical hernia. Normal sigmoid colon. A few sigmoid diverticuli. No evidence of small or large bowel obstruction. Willard gical clips in the RIGHT anterior abdomen. No abdominal or pelvic lymphadenopathy. No inguinal lympha denopathy. CT/CT abdomen pelvis w con* [id number] IMPRESSION: 1. Mild hepatomegaly with diffuse fatty infiltration of the liver. Hepatomegal y progressed since 2006 2. Normal size spleen. 3. Prior cholecystectomy. 4. Tiny esophageal hernia. 5. Sigmoid diverticulosis. No evidence of acute diverticulitis. 6. Tiny fat-containing umbilical hernia. 7. No other acute findings.
[2023-10-09] MEDS: iohexol 350 mg/mL 500 mL Btl (per mL) PO (15:28)
[2023-10-09] MEDS: iohexol 350 mg/mL 500 mL Btl (per mL) IV (16:19)
== END 2023-10-09 15:13 | disposition home or self-care (01) ==
PROVIDERS: PCP Internal Medicine; Visit Provider Internal Medicine
DX: R79.89 Other specified abnormal findings of blood chemistry (principal); K57.90 Diverticulosis of intestine, part unspecified, without perforation or abscess without bleeding; Z90.49 Acquired absence of other specified parts of digestive tract
CPT/HCPCS: 74177; Q9967

== ENCOUNTER → 2023-10-14 15:33 | Outpatient (BNVA) | payer BC, MEDICAID, SELFPAY | PROVIDERS: PCP Internal Medicine; Visit Provider Student in an Organized Health Care Education/Training Program | DX: G56.02 Carpal tunnel syndrome, left upper limb (principal); R20.0 Anesthesia of skin; R20.2 Paresthesia of skin | CPT/HCPCS: 73130 ==

== ENCOUNTER → 2024-01-02 15:20 | Outpatient (BNVA) | payer BC, MEDICAID, SELFPAY | PROVIDERS: PCP Internal Medicine; Visit Provider Nurse Practitioner Family | DX: R05.9 Cough, unspecified (principal) | CPT/HCPCS: 87071; 87880 ==

== ENCOUNTER → 2024-01-11 12:44 | Outpatient (BNVA) | payer BC, MEDICAID, SELFPAY | PROVIDERS: PCP Internal Medicine; Visit Provider Nurse Practitioner | DX: J02.9 Acute pharyngitis, unspecified (principal) | CPT/HCPCS: 87071; 87880 ==

== ENCOUNTER → 2024-03-15 14:41 | Outpatient (BNVA) | payer BC, MEDICAID, SELFPAY | PROVIDERS: PCP Internal Medicine; Visit Provider Nurse Practitioner Family | DX: J02.9 Acute pharyngitis, unspecified (principal) | CPT/HCPCS: 87400 ==

== ENCOUNTER 2024-05-22 14:49 | Emergency (ER) | payer BC, MEDICAID, SELFPAY ==
[2024-05-22 14:58] VITALS: BP 135/83; PULSE 99; TEMP 37.7; O2SAT 98; BMI 43.4
--- NOTE | 2024-05-22 15:50 | XRR_ITS ---
PROCEDURE INFORMATION: Exam: XR Chest Exam date and time: 05/22/2024 4:09 PM Age: 54 years old Clinical indication: Shortness of breath TECHNIQUE: Imaging protocol: Radiologic exam of the chest. Views: 1 view. COMPARISON: CR XR chest 1V portable [id number] 08/22/2021 7:31 PM FINDINGS: Lungs: Unremarkable. No consolidation. Pleural spaces: Unremarkable. No pleural effusion. No pneumothorax. Heart/Mediastinum: Unremarkable. No cardiomegaly. Bones/joints: Unremarkable. XR/XR chest 1V portable [id number] IMPRESSION: No acute findings.
--- NOTE | 2024-05-22 15:52 | ED_ITS ---
HPI - Pediatric SOB/Dyspnea General: Chief Complaint: Upper Respiratory Infection Stated Complaint: sob Time Seen by Provider: 05/22/24 15:50 History of Present Illness: 54-year-old female with a history of dep ression, hypertension, hyperlipidemia and obesity who presents to the emergency room with upper respiratory symptoms. She has had cough and congestion. Related Data Home Medications ?Medication ?Instructions ?Recorded ?Confirmed celecoxib 200 mg capsule 200 mg PO BID 05/22/2405/22 chlorzoxazone 500 mg tablet 500 mg PO TID 05/22/2402/03 duloxetine 60 mg capsule,delayed 60 mg PO DAILY 05/22/24 release valsartan 160 mg tablet 160 mg PO DAILY 05/22/2402/03 Previous Rx's ?Medication ?Instructions ?Recorded gabapentin 300 mg capsule 300 mg PO Q12H #60 caps 08/11 08/31 hydrochlorothiazide 50 mg tablet 50 mg PO QAM #90 tabs 09/05/21 pantoprazole 40 mg tablet,delayed 40 mg PO DAILY #90 t abs 09/05/21 release (Protonix) Allergies Allergy/AdvReac Type Severity Reaction Status Date / Time erythromycin base Allergy Intermediate hives, Verified 05/22/24 15:02 itching, burning KWAKU Inhibitors AdvReac Intermediate Cough Verified 05/22/24 15:02 [facility] ED PFS: Medical History Chondromalacia, right knee Loose body in knee, right knee Tear of meniscus of right knee Degenerative joint disease of right knee Palpitations Chest pain Elevated C-reactive protein (CRP) Hyperlipidemia Status post hysteroscopy Hysteroscopy with dilation and curettage via myosure performed on 06/23/[address] Pozo Obesity Diabetes Metabolic syndrome Obstructive sleep apnea Encouraged BiPAP at night PCOS (polycystic ovarian syndrome) Hypertension Surgical History S/P cholecystectomy 01/1992 S/P appendectomy 12/1989 S/P section 10/2001 Status post surgical removal of ganglion cyst 07/03/2017- right foot S/P carpal tunnel release right wrist Family History Grandfather Diabetes paternal Stroke maternal and paternal Hypertension paternal Mother Diabetes from pancreatitis Grandfather Heart disease Grandmother Heart disease paternal Hypertension Father Heart disease Hypertension Heart attack, Onset Age: 65 stents Sister Hypertension Social History Smoking and tobacco/nicotine status: never used tobacco/nicotine Substance/Drug Use: never Course Vital Signs: Vital signs: Vital Signs Temperature 100 F H 05/22/24 14:58 Pulse Rate 99 05/22/24 14:58 Blood Pressure 135/83 05/22/24 14:58 Pulse Oximetry 98 05/22/24 14:58 Oxygen Delivery Me thod Room Air 05/22/24 14:58 Discharge Plan Discharge Condition: Stable Prescriptions: No Action gabapentin 300 mg capsule 300 mg PO Q12H Qty: 60 3RF Rx Instructions: 340 b if needed hydrochlorothiazide 50 mg tablet 50 mg PO QAM Qty: 90 3RF Rx Instructions: 340 b if needed pantoprazole [Protonix] 40 mg tablet,delayed release (DR/EC) 40 mg PO DAILY Qty: 90 3RF Rx Instructions: If unaffordable then run 340 B celecoxib 200 mg capsule 200 mg PO BID chlorzoxazone 500 mg tablet 500 mg PO TID valsartan 160 mg tablet 160 mg PO DAILY duloxetine 60 mg capsule,delayed release(DR/EC) 60 mg PO DAILY Referrals: Nabor Wilson MD [Primary Care Provider] - Print Language: Andorran Coding Level of Care Code ED Er Rn for Deyanira Nice
[2024-05-22 16:05] LABS: Basophils # 0.1 10^3/uL (0.0-0.1); Basophils % 0.3 %; Eosinophils # 0.2 10^3/uL (0.0-0.8); Eosinophils % 1.2 %; Hematocrit 43.3 % (36-47); Lymphocytes # 2.4 10^3/uL (0.8-4.8); Lymphocytes % 14.9 %; Mean Corpuscular HGB Conc 31.9 g/dL (30-55); Mean Platelet Volume 11.1 fL (7.4-10.4); Monocytes # 0.5 10^3/uL (0.2-0.9); Monocytes % 3.1 %; Neutrophils # 12.99 10^3/uL (1.8-7.7); Neutrophils % 80.1 %; Nucleated Red Blood Cells % 0 %; Platelet Count 297 10^3/cmm (157-399); Red Blood Count 4.92 10^6/uL (3.85-5.65); Red Cell Distribution Width 14.3 % (12.1-15.1); White Blood Count 16.21 10^3/uL (3.29-11.43)
[2024-05-22 16:20] LABS: Alanine Aminotransferase 14 U/L (0-33); Albumin Level 4.1 g/dL (3.5-5.2); Alkaline Phosphatase 89 U/L (35-105); Blood Urea Nitrogen 7 mg/dL (6-20); Calcium 8.9 mg/dL (8.5-10.5); Carbon Dioxide 24 mmol/L (22-29); Chloride 98 mmol/L (98-107); Creatinine Clr Calc Pharmacy 88.3186; Globulin 3.6 g/dL (1.3-4.6); Glomerular Filtration Rate 74.5 mL/min (90-130); Glucose 110 mg/dL (65-115); Osmolality Calculated 281 mOsm/kg (285-295); Sodium 136 mmol/L (136-145); Total Bilirubin 0.6 mg/dL (0.15-1.2); Total Protein 7.7 g/dL (6.6-8.7)
[2024-05-22 16:21] LABS: Anion Gap 17.9 (5-19); Aspartate Amino Transferase 17 U/L (0-32); Lactic Sepsis W/Reflex 1.9 mmol/L (0.5-2.2); Potassium 3.9 mmol/L (3.5-5.1)
[2024-05-22 16:39] LABS: Influenza A NEGATIVE (Negative); Influenza B NEGATIVE (Negative); Respiratory Syncytial Virus Ce NEGATIVE (Negative); SARS-CoV-2 PCR NEGATIVE (Negative)
--- NOTE | 2024-05-22 17:01 | ED_ITS ---
HPI - URI/Sore Throat 2 General: Chief Complaint: Upper Respiratory Infection Stated Complaint: sob Time Seen by Provider: 05/22/24 15:50 History of Present Illness: 54-year-old female with a history of dep ression, hypertension, hyperlipidemia and obesity who presents to the emergency room with upper respiratory symptoms. She has had cough and congestion. Mild shortness of breath. No altered mental status. No focal motor deficits. No chest pain. No known fevers. She does have a temp 100.0 on presentation Related Data Home Medications ?Medication ?Instructions ?Recorded ?Confirmed celecoxib 200 mg capsule 200 mg PO BID 05/22/2405/22 chlorzoxazone 500 mg tablet 500 mg PO TID 05/22/2402/03 duloxetine 60 mg capsule,delayed 60 mg PO DAILY 05/22/24 release valsartan 160 mg tablet 160 mg PO DAILY 05/22/2402/03 Previous Rx's ?Medication ?Instructions ?Recorded gabapentin 300 mg capsule 300 mg PO Q12H #60 caps 08/11 08/31 hydrochlorothiazide 50 mg tablet 50 mg PO QAM #90 tabs 09/05/21 pantoprazole 40 mg tablet,delayed 40 mg PO DAILY #90 t abs 09/05/21 release (Protonix) benzonatate 200 mg capsule 200 mg PO TID PRN cough #30 caps 05/22/24 dexamethasone 6 mg tablet 6 mg PO DAILY 5 days #5 tabs 05/22/24 doxycycline hyclate 100 mg capsule 100 mg PO BID 7 day s #14 caps 05/22/24 Allergies Allergy/AdvReac Type Severity Reaction Status Date / Time erythromycin base Allergy Intermediate hives, Verified 05/22/24 15:02 itching, burning KWAKU Inhibitors AdvReac Intermediate Cough Verified 05/22/24 15:02 Review of Systems 2 Narrative: Constitutional symptoms: Negative except as documented in HPI. Skin symptoms: Negative except as documented in HPI. Eye symptoms: Negative except as documented in HPI. ENMT symptoms: Negative except as documented in HPI. Respiratory symptoms: Negative except as documented in HPI. Cardiovascular symptoms: Negative except as documented in HPI. Gastrointestinal symptoms: Negative except as documented in HPI. Genitourinary symptoms: Negative except as documented in HPI. Musculoskeletal symptoms: Negative except as documented in HPI. Neurologic symptoms: Negative except as documented in HPI. Psychiatric symptoms: Negative except as documented in HPI. Endocrine symptoms: Negative except as documented in HPI. PFSH ED 2 PFSH: Medical History Chondromalacia, right knee Loose body in knee, right knee Tear of meniscus of right knee Degenerative joint disease of right knee Palpitations Chest pain Elevated C-reactive protein (CRP) Hyperlipidemia Status post hysteroscopy Hysteroscopy with dilation and curettage via myosure performed on 06/23/[address] Pozo Obesity Diabetes Metabolic syndrome Obstructive sleep apnea Encouraged BiPAP at night PCOS (polycystic ovarian syndrome) Hypertension Surgical History S/P cholecystectomy 01/1992 S/P appendectomy 12/1989 S/P section 10/2001 Status post surgical removal of ganglion cyst 07/03/2017- right foot S/P carpal tunnel release right wrist Family History Grandfather Diabetes paternal Stroke maternal and paternal Hypertension paternal Mother Diabetes from pancreatitis Grandfather Heart disease Grandmother Heart disease paternal Hypertension Father Heart disease Hypertension Heart attack, Onset Age: 65 stents Sister Hypertension Social History Smoking and tobacco/nicotine status: never used tobacco/nicotine Substance/Drug Use: never Physical Exam 2 Narrative: EXAM NARRATIVE: General: Alert, no acute distress. Skin: Warm, dry. Head: Normocephalic, atraumatic. Neck: Supple, trachea midline. Eye: Extraocular movements are intact. Ears, nose, mouth and throat: mucosa moist. Cardiovascular: Regular, Normal peripheral perfusion. Respiratory: Lungs are clear to auscultation, respirations are non-labored, breath sounds are equal, Symmetrical chest wall expansion. Gastrointestinal: Soft, Nontender, Non distended Musculoskeletal: Normal ROM, no deformity. Neurological: Alert and oriented, No focal neurological deficit observed. Psychiatric: Cooperative, appropriate mood & affect. Course 2 Vital Signs: Vital signs: Vital Signs Temperature 100 F H 05/22/24 14:58 Pulse Rate 99 05/22/24 14:58 Blood Pressure 135/83 05/22/24 14:58 Pulse Oximetry 98 05/22/24 14:58 Oxygen Delivery Me thod Room Air 05/22/24 14:58 MDM - URI/Sore Throat Medical Decision Making Differential diagnosis for patient with shortness of breath includes but is not limited to and based on the above HPI, review of systems and physical exam: Pneumonia. Bronchitis. Asthma or COPD with acute exacerbation. Acute coronary syndrome / HI. Pulmonary embolism. Anxiety. Congestive heart failure. Viral infections including influenza and Covid-19. Atrial fibrillation. Anxiety. Pleural effusion. Pneumothorax. Orders placed to evaluate differential diagnosis based on the above differential, HPI and physical exam Chest x-ray: No acute process. No infiltrate. No pneumothorax. This was reviewed and interpreted by myself the emergency room physician. I also reviewed the radiology report. Lab Review: Laboratory results were reviewed and interpreted by myself the emergency room physician Mild leukocytosis. No anemia. No renal failure. Flu COVID and RSV are negative. I reviewed the patient's medical record. Reexamination: Patient remained stable. No increased work of breathing. No altered mental status. No focal motor deficits. Assessment and plan: Upper respiratory infection ?IM Decadron in the emergency room. Home on Decadron, doxycycline and Tessalon Perles. - Discharged home - Discussed plan with patient. Answered any questions. - Evaluation and treatment of this problem were appropriate in the emergency setting. Lab Data 05/22/24 15:58 05/22/24 15:58 Radiology Impressions Chest X-Ray 05/22/24 15:50 IMPRESSION: No acute findings. Laboratory Results WBC 16.21 10^3/uL (3.29-11.43) H 05/22/24 15:58 RBC 4.92 10^6/uL (3.85-5.65) 05/22/24 15:58 Hgb 13.80 g/dL (11.27-16.99) 05/22/24 15:58 Hct 43.3 % (36-47) 05/22/24 15:58 MCV 88.0 fl (85-98) 05/22/24 15:58 MCH 28.0 pg (27-33) 05/22/24 15:58 MCHC 31.9 g/dL (30-55) 05/22/24 15:58 RDW 14.3 % (12.1-15.1) 05/22/24 15:58 Plt Count 297 10^3/cmm (157-399) 05/22/24 15:58 MPV 11.1 fL (7.4-10.4) H 05/22/24 15:58 Neut % (Auto) 80.1 % 05/22/24 15:58 Lymph % (Auto) 14.9 % 05/22/24 15:58 [place] % (Auto) 3.1 % 05/22/24 15:58 Eos % (Auto) 1.2 % 05/22/24 15:58 Baso % (Auto) 0.3 % 05/22/24 15:58 Neut # (Auto) 12.99 10^3/uL (1.8-7.7) H 05/22/24 15:58 Lymph # (Auto) 2.4 10^3/uL (0.8-4.8) 05/22/24 15:58 [place] # (Auto) 0.5 10^3/uL (0.2-0.9) 05/22/24 15:58 Eos # (Auto) 0.2 10^3/uL (0.0-0.8) 05/22/24 15:58 Baso # (Auto) 0.1 10^3/uL (0.0-0.1) 05/22/24 15:58 Nucleated RBC % (auto) 0 % 05/22/24 15:58 Nucleated RBCs # 0.0 /100WBC 05/22/24 15:58 Sodium 136 mmol/L (136-145) 05/22/24 15:58 Potassium 3.9 mmol/L (3.5-5.1) 05/22/24 15:58 Chloride 98 mmol/L (98-107) 05/22/24 15:58 Carbon Dioxide 24 mmol/L (22-29) 05/22/24 15:58 Anion Gap 17.9 (5-19) 05/22/24 15:58 BUN 7 mg/dL (6-20) 05/22/24 15:58 Creatinine 0.8 mg/dL (0.5-0.9) 05/22/24 15:58 GFR Calculation 74.5 mL/min (90-130) L 05/22/24 15:58 Glucose 110 mg/dL (65-115) 05/22/24 15:58 Calculated Osmolality 281 mOsm/kg (285-295) L 05/22/24 15:58 Lactic Acid 1.9 mmol/L (0.5-2.2) 05/22/24 15:58 Calcium 8.9 mg/dL (8.5-10.5) 05/22/24 15:58 Total Bilirubin 0.6 mg/dL (0.15-1.2) 05/22/24 15:58 AST 17 U/L (0-32) 05/22/24 15:58 ALT 14 U/L (0-33) 05/22/24 15:58 Alkaline Phosphatase 89 U/L (35-105) 05/22/24 15:58 Total Protein 7.7 g/dL (6.6-8.7) 05/22/24 15:58 Albumin 4.1 g/dL (3.5-5.2) 05/22/24 15:58 Globulin 3.6 g/dL (1.3-4.6) 05/22/24 15:58 Influenza A (PCR) Negative (Negative) 05/22/24 15:57 Influenza Type B (PCR) Negative (Negative) 05/22/24 15:57 RSV (PCR) Negative (Negative) 05/22/24 15:57 SARS-CoV-2 (PCR) Negative (Negative) 05/22/24 15:57 All radiology interpretation(s) finalized by discharge Discharge Plan Discharge Patient Disposition: Home Clinical Impression: Acute upper respiratory infection Condition: Stable Prescriptions: New benzonatate 200 mg capsule 200 mg PO TID PRN (Reason: cough) Qty: 30 0RF dexamethasone 6 mg tablet 6 mg PO DAILY 5 Days Qty: 5 0RF doxycycline hyclate 100 mg capsule 100 mg PO BID 7 Days Qty: 14 0RF No Action gabapentin 300 mg capsule 300 mg PO Q12H Qty: 60 3RF Rx Instructions: 340 b if needed hydrochlorothiazide 50 mg tablet 50 mg PO QAM Qty: 90 3RF Rx Instructions: 340 b if needed pantoprazole [Protonix] 40 mg tablet,delayed release (DR/EC) 40 mg PO DAILY Qty: 90 3RF Rx Instructions: If unaffordable then run 340 B celecoxib 200 mg capsule 200 mg PO BID chlorzoxazone 500 mg tablet 500 mg PO TID valsartan 160 mg tablet 160 mg PO DAILY duloxetine 60 mg capsule,delayed release(DR/EC) 60 mg PO DAILY Discharge Orders: Discharge ED (Routine); Ordered 05/22/24 Ordered By: Arabella Swift Referrals: Nabor Wilson MD [Primary Care Provider] - Discharge Diet: Usual diet Discharge Activity: Increase activity as tolerated Patient Instructions: Upper Respiratory Infection (ED), Opioid Safety, Pain Management Activity Restrictions/Additional Instructions: Thank you for choosing [facility] for your healthcare needs today. Please realize this is an emergency room and that we are providing you with a medical screening exam and this may not be complete and all inclusive of all the testing and or work up that you may need to determine your ailment or severity of your illness. You have been screened and evaluated and felt safe for discharge. Health conditions do change or evolve sometimes and as such it is important that you follow up with your Primary Doctor to be re checked, 3-5 days is a general good time frame for follow up. You are always welcome to return to the ED for re assessment if your symptoms are worsening or you have new concerns Print Language: Guyanese Coding Level of Care Code ED Revenue Cycle Analyst for Deyanira Nice
[2024-05-22] MEDS: dexamethasone 10 mg/mL INJ IM (17:07)
[2024-05-22 17:22] VITALS: BP 157/88; PULSE 95; O2SAT 98
== END 2024-05-22 17:24 | disposition home or self-care (01) ==
PROVIDERS: Emergency Provider Emergency Medicine; PCP Internal Medicine
DX: J06.9 Acute upper respiratory infection, unspecified (principal); Z11.52 Encounter for screening for COVID-19; E11.9 Type 2 diabetes mellitus without complications; I10 Essential (primary) hypertension; E78.5 Hyperlipidemia, unspecified
CPT/HCPCS: 71045; 80053; 83605; 85025; 87637; 96372; 99284; J1100

== ENCOUNTER 2024-08-20 05:46 | Day surgery (SDC) | payer BC, MEDICAID, SELFPAY ==
[2024-08-20] VITALS (11 sets, daily range): BP systolic 137–174; BP diastolic 66–111; PULSE 64–79; RESP 10–21; TEMP 36.1–36.5; O2SAT 94–99; BMI 44.4
--- NOTE | 2024-08-20 06:09 | ANES.PREANE2 ---
Pre-Anesthetic Assessment Height/Weight: Height 5 ft 1 in Weight 235 lb Temp Pulse Resp BP Pulse Ox O2 Del Method 97.7 F 78 18 174/111 98 Room Air 08/20/24 05:55 08/20/24 05:55 08/20/24 05:55 08/20/24 05:55 08/20/24 05:55 08/20/24 05:55 Preop Diagnosis: Carpal tunnel syndrome Operation Date: 08/20/24 07:00 Proposed Procedures p Carpal Tunnel Release(Left) - Abundio Jolley, DO Was Beta Mil taken within 24 hours: N/A Was Clonidine taken within 24 hours: N/A Last intake: Intake Last Liquid Date 08/19/24 Last Liquid Time 22:30 Last Solid Date 08/19/24 Last Solid Time 18:00 Social No alcohol and No tobacco Exam alert, oriented x 3, clear to auscultation bilaterally and regular rate & rhythm Airway Submandibular: within normal limits Cervical ROM: within normal limits Mallampati: Class II Dentition: full Anesthetic Plan ASA status: 3 Anesthesia: MAC Other: No prior issues with anesthesia NPO since yesterday evening History of hypertension on hydrochlorothiazide and valsartan GERD, controlled with Protonix BMI 44 JUVENAL, no treatment Prior GA with LMA size 4 without issues Labs reviewed from May Stress test 2022 was negative Plan for MAC anesthesia with local via surgeon Medications/Allergies Home Medications ?Medication ?Instructions ?Recorded ?Confirmed ?Last Taken ?Type hydrochlorothiazide 50 mg tablet 50 mg PO QAM #90 tabs 09/05/21 08/19/24 08/18/24 Rx pantoprazole 40 mg tablet,delayed 40 mg PO DAILY #90 tabs 09/05/21 08/19/24 08/18/24 Rx release (Protonix) celecoxib 200 mg capsule 200 mg PO BID 05/22/24 08/19/24 08/18/24 History chlorzoxazone 500 mg tablet 500 mg PO TID 05/22/24 08/19/24 08/18/24 History duloxetine 60 mg capsule,delayed 60 mg PO DAILY 05/22/24 08/19/24 08/18/24 History release valsartan 160 mg tablet 160 mg PO DAILY 05/22/24 08/19/24 08/18/24 History albuterol sulfate 2.5 mg/3 mL 2.5 mg (3 mL) inhalation QID PRN 05/31/24 08/19/24 08/18/24 Rx (0.083 %) solution for nebulization shortness of breath or wheezing #75 mL compressor, for nebulizer #1 ea 05/31/24 05/31/24 08/18/24 Rx pregabalin 100 mg capsule 100 mg PO BID 06/29/24 08/19/24 08/18/24 History Allergies Allergy/AdvReac Type Severity Reaction Status Date / Time erythromycin base Allergy Intermediate hives, Verified 08/20/24 05:57 itching, burning KWAKU Inhibitors AdvReac Intermediate Cough Verified 08/20/24 05:57 [facility] Anesthesia Medical History Chondromalacia, right knee Loose body in knee, right knee Tear of meniscus of right knee Degenerative joint disease of right knee Palpitations Chest pain Elevated C-reactive protein (CRP) Hyperlipidemia Status post hysteroscopy Hysteroscopy with dilation and curettage via myosure performed on 06/23/[address] Pozo Obesity Diabetes Metabolic syndrome Obstructive sleep apnea Encouraged BiPAP at night PCOS (polycystic ovarian syndrome) Hypertension Surgical History S/P cholecystectomy 01/1992 S/P appendectomy 12/1989 S/P section 10/2001 Status post surgical removal of ganglion cyst 07/03/2017- right foot S/P carpal tunnel release right wrist Family History Grandfather Diabetes paternal Stroke maternal and paternal Hypertension paternal Mother Diabetes from pancreatitis Grandfather Heart disease Grandmother Heart disease paternal Hypertension Father Heart disease Hypertension Heart attack, Onset Age: 65 stents Sister Hypertension Social History Smoking and tobacco/nicotine status: never used tobacco/nicotine Substance/Drug Use: never Data Anesthesia Cardiac Studies: Echocardiogram 05/02/21 Echocardiogram Ultrasound 03/21/19 Sestamibi Stress Test (Cardiology) 11/22/22 Cardiac Event Monitor 09/10/21
[2024-08-20] MEDS: acetaminophen 1,000 MG/100 ML PIGGYBACK 400 MG IV (06:22)
--- NOTE | 2024-08-20 06:58 | W.PM.OPSFHP ---
Same Day Surgery H&P Indication for Procedure/HPI DATE OF PROCEDURE: August 20, 2024 CHIEF COMPLAINT/INDICATIONFOR SURGICAL PROCEDURE: Left carpal tunnel syndrome PREOP DIAGNOSIS: Left Carpal tunnel syndrome PLANNED PROCEDURE: Operation Date: 08/20/24 07:00 Proposed Procedures p Carpal Tunnel Release(Left) - Abundio Jolley DO Medications/Allergies* Home Medications ?Medication ?Instructions ?Recorded ?Confirmed ?Type celecoxib 200 mg capsule 200 mg PO BID 05/22/24 08/19/24 History chlorzoxazone 500 mg tablet 500 mg PO TID 05/22/24 08/19/24 History duloxetine 60 mg capsule,delayed 60 mg PO DAILY 05/22/24 08/19/24 History release valsartan 160 mg tablet 160 mg PO DAILY 05/22/24 08/19/24 History pregabalin 100 mg capsule 100 mg PO BID 06/29/24 08/19/24 History Allergies/Adverse Reactions Allergy/AdvReac Type Severity Reaction Status Date / Time erythromycin base Allergy Intermediate hives, Verified 08/20/24 05:57 itching, burning KWAKU Inhibitors AdvReac Intermediate Cough Verified 08/20/24 05:57 Current Medications: Generic Name Dose Route Start Last Admin Trade Name Freq PRN Reason Stop Dose Admin Sodium Chloride 1,000 mls @ 30 mls/hr 08/20/24 06:00 08/20/24 06:22 Sodium Chloride 0.9% IV 08/21/24 05:59 30 mls/hr .Q24H FERNANDA Administration Pertinent History/Comorbid Conditions* Medical History (Updated 05/30/24 @ 00:00 by ARIADNA Irwin) Chondromalacia, right knee Loose body in knee, right knee Tear of meniscus of right knee Degenerative joint disease of right knee Palpitations Chest pain Elevated C-reactive protein (CRP) Hyperlipidemia Status post hysteroscopy Hysteroscopy with dilation and curettage via myosure performed on 06/23/[address] Pozo Obesity Diabetes Metabolic syndrome Obstructive sleep apnea Encouraged BiPAP at night PCOS (polycystic ovarian syndrome) Hypertension Surgical History (Updated 04/30/22 @ 11:07 by Abundio Jolley DO) S/P cholecystectomy 01/1992 S/P appendectomy 12/1989 S/P section 10/2001 Status post surgical removal of ganglion cyst 07/03/2017- right foot S/P carpal tunnel release right wrist Family History (Updated 04/13/19 @ 13:46 by Jenni Kennedy MD) Diabetes Grandfather paternal Mother from pancreatitis Heart disease Grandfather Grandmother paternal Father Heart attack Father, Onset Age: 65 stents Hypertension Grandfather paternal Grandmother Father Sister Stroke Grandfather maternal and paternal Social History Smoking and tobacco/nicotine status: never used tobacco/nicotine Substance/Drug Use: never Pertinent Exam Findings alert, oriented x 3, operative site marked and procedure specific exam findings Please refer to detail orthopedic examination on 03/11/2024 listed below: Left upper extremity examination: Positive Spurling's Negative Tinel's at shoulder Negative tinels over cubital tunnel Neg elbow flexion test Positive Tinel's at the wrist over carpal tunnel Positive median nerve compression test Thenar weakness, no significant atrophy noted Good intrinsic strength Tender over CMC joint Positive CMC grind negative Tinel's over proximal volar forearm Recommendations Risks and benefits of procedure reviewed and Patient/family agree to proceed Surgery/Procedure today Other Plans: Plan to proceed to the OR today for left carpal tunnel Release. Patient understands the ins and outs procedure the risk benefits complication alternatives to surgery and through shared decision-making patient elects proceed with surgical intervention. All questions have been answered at this time. Will proceed with surgery today. Coding Level of Care Code Acute Code for Chg Fwd
[2024-08-20] MEDS: ceFAZolin 2,000 MG in sodium chloride 0.9% (plus) 50 ML 100 MG IV (07:00)
[2024-08-20] MEDS: lidocaine-epi 1% 20 mL INJ 5 ML INJECTION (07:16)
[2024-08-20] MEDS: ROPivacaine 0.5% SDV 30 mL 25 MG INJECTION (07:16)
--- NOTE | 2024-08-20 07:42 | P.OP_ITS ---
Operative Report Date of procedure: August 20, 2024 Surgeon: Abundio Jolley DO Procedure: Preop Diagnosis: Left Carpal Tunnel Syndrome Post-op diagnosis: Same Procedure done: 1. Left carpal tunnel release Surgeon: Abundio Jolley DO Anesthesia: MAC (Local) Estimated blood loss: 3 mL Tourniquet time 5 minutes IV fluids: See anesthesia record Complications: None Findings: See operative report narrative Condition: stable Disposition: same day Brief History: Patient is a pleasant 54 year-old female with left carpal tunnel syndrome. Patient has been worked up in the outpatient setting findings and physical examination consistent with this. Patient nerve conduction studies consistent with carpal tunnel syndrome. We detailed out patient's risk benefits complication alternatives with surgical and nonsurgical treatment options. Through shared decision making, patient agrees to proceed with surgical intervention of the left carpal tunnel release . Patient understands and agrees with current plan. All questions answered. Patient elects to proceed with surgical intervention with carpal tunnel release. Procedure: Patient seen and evaluated in the preoperative holding area. Consent was reviewed and signed with patient. Correct extremity was marked. Patient was seen evaluated by the anesthesia department once cleared for surgery was brought back to the operative suite. Patient was kept on [facility] in supine position all bony prominences were well-padded patient properly secured to the bed. Left upper extremity was then placed onto an armboard. A nonsterile tourniquet was applied to the left upper arm. Patient underwent anesthesia per the anesthesia department. Patient's left upper extremity was then prepped and draped in standard orthopedic fashion. Final timeout performed. Patient received appropriate preoperative antibiotics. Under sterile aseptic technique patient received local anesthesia over the preplanned carpal tunnel incision site. Esmarch was used to exsanguinate the left upper extremity and tourniquet was insufflated to 250 mmHg. A standard mini open left carpal tunnel incision was made. Starting distally at Manuel's cardinal line in line with the fourth ray extending proximally distal to the wrist crease centered over the carpal tunnel. Sharp scalpel incision was made through skin and subcutaneous tissue. Self-retaining retractor was placed and the palmar fascia was identified. This was then split longitudinally and direct visualization of the transverse carpal ligament was then made. I then utilizing scalpel feathered through the transverse carpal ligament until I entered the floor of the transverse carpal tunnel ligament into the carpal tunnel. Next I switched to dissection scissors and completed my release of the transverse carpal ligament distally with care to protect the recurrent motor branch. I completely released into the palmar fat and until no entrapment was noted distally. Care was made to protect the superficial palmar arch during my distal dissection. Next, nasal speculum placed proximally for retraction of soft tissue on top of the Transverse carpal ligament. Next the contents of the carpal tunnel where protected and and subsequently utilizing dissection scissors under loupe magnification completely released the transverse carpal ligament proximally into the antebrachial fascia. Care was made to protect the palmar cutaneous branch by keeping my scissors curved ulnarly. Once completely released, I then placed my [place] and had appropriate decompression of the carpal tunnel proximally as well as distally. I then inspected the contents of the carpal tunnel which showed an hourglass shape of the median nerve showing its compression. No masses were noted. Tendons appeared healthy. Wound was then thoroughly irrigat ed. Tourniquet deflated. Hemostasis satisfactory with bipolar electrocautery. I then closed the incision with interrupted nylon stitches. Xeroform 4 x 4's and a bulky soft dressing was applied to the left upper extremity. Patient was then awakened from anesthesia and taken to PACU in stable condition. Patient tolerated procedure without complications. Disposition: Patient taken to PACU in stable condition recovering well. Dressing clean dry and intact. Patient will receive appropriate discharge instructions as well as pain medication postoperatively. Patient to follow-up with me in the office in 2 weeks. They understand they may be weightbearing as tolerated to the left hand. Patient should keep incision clean dry and intact. Patient understands if any questions or concerns may contact the office.
--- NOTE | 2024-08-20 07:42 | W.PM.BPON ---
Date of Procedure: 08/20/2024 Surgeon: Abundio Jolley DO Acetaldehyde Converter Operator(s): None Procedure(s) performed: Right carpal tunnel release Findings of the procedure(s): Underwent procedure as planned without issues or complications Estimated blood loss: 3 mL Specimen(s) removed: None Post-operative diagnosis: Right carpal tunnel syndrome
--- NOTE | 2024-08-20 08:48 | ANE.PACU2 ---
Inpatient post-anesthesia follow up: Airway intact: Yes Vital signs: Temperature 97.0 F Pulse Rate 66 Respiratory Rate 18 Blood Pressure 166/70 Pulse Oximetry 98 Oxygen Delivery Me thod Room Air Oxygen Flow Rate Fraction of Inspir ed Oxygen Hydration adequate: Yes Nausea and vomiting: No Pain level: 1 Mental status: Baseline
== END 2024-08-20 08:48 | disposition home or self-care (01) ==
PROVIDERS: PCP Internal Medicine; Visit Provider Student in an Organized Health Care Education/Training Program
PROC: (CPT 64721; principal; 2024-08-20 07:00)
DX: G56.02 Carpal tunnel syndrome, left upper limb (principal); K21.9 Gastro-esophageal reflux disease without esophagitis; I10 Essential (primary) hypertension; G47.33 Obstructive sleep apnea (adult) (pediatric); R00.2 Palpitations; E78.5 Hyperlipidemia, unspecified; E66.9 Obesity, unspecified; Z68.41 Body mass index [BMI] 40.0-44.9, adult; E11.9 Type 2 diabetes mellitus without complications
CPT/HCPCS: 64721; J0131; J0690; J1885; J2250; J2704; J2795; J3010; J7030; J9999

== ENCOUNTER → 2025-01-30 14:08 | Outpatient (BNVA) | payer BC, MEDICAID, SELFPAY | PROVIDERS: PCP Internal Medicine | DX: J06.9 Acute upper respiratory infection, unspecified (principal) | CPT/HCPCS: 87400; 87426 ==

== ENCOUNTER → 2025-02-07 16:02 | Outpatient (BNVA) | payer BC, SELFPAY | PROVIDERS: PCP Internal Medicine; Visit Provider Family Medicine | DX: R09.81 Nasal congestion (principal) | CPT/HCPCS: 87400; 87426 ==